=== PATIENT | female | born 1935 | race Caucasian/White ===

== ENCOUNTER 2017-05-18 16:33 | Observation (INO) ==
[2017-05-18] MEDS ORDERED: Aspirin 81 MG TAB.CHEW PO ONE (16:38)
--- NOTE | 2017-05-18 16:42 | Emergency Department Note ---
Disposition Clinical Impression: Chest pain Qualifiers: Chest pain type: unspecified Qualified Code(s): R07.9 - Chest pain, unspecified Disposition: Admitted As Inpatient Condition: Fair Referrals: Poli Esparza MD [Primary Care Provider] - Time of Disposition: 19:00 Chest Pain HPI - General Stated Complaint: Chest pain Time Seen by Provider: 05/18/17 16:38 Source: patient, EMS Mode of arrival: EMS Vital Signs Reviewed: Yes Nursing Notes Reviewed: Yes - History of Present Illness HPI Narrative: 82-year-old comes in with a one-hour history of chest pain. Patient took her blood pressure and said it was high and she noticed her heart rate was about 107. Relative some chest pain and noted that she took 3 nitros with some improvement. She is status post triple bypass surgery in 1997. She has had no recent cardiac workup. Pt complaint: chest pain Onset (ago): Just BENCH EXAMINER Duration: constant Onset: during rest Pain Location: substernal, left chest Severity: mild, moderate Quality: tightness, aching Pain Radiation: none Improves with: nitroglycerin Worsens with: nothing Associated symptoms: Denies: nausea, vomiting Treatments prior to arrival chest pain: nitroglycerin - Related Data Home Medications Medication Instructions Recorded Confirmed ALPRAZolam [Xanax 0.5 MG Tablet] 0.5 mg PO TID PRN 09/25/16 09/25/16 Amitriptyline [Elavil] 10 mg PO HS 09/25/16 09/25/16 Ascorbate Calcium [Vitamin C] 500 mg PO DAILY 09/25/16 09/25/16 Aspirin [Lo-Dose Aspirin EC] 81 mg PO DAILY 09/25/16 09/25/16 Calcium Carbonate [Calcium] 500 mg PO DAILY 09/25/16 09/25/16 Cholecalciferol (D-3) [Vitamin D] 1,000 unit PO DAILY 09/25/16 09/25/16 Estradiol [Estrace] 1 mg PO HS 09/25/16 09/25/16 HYDROcodone/Acet 5/325 mg [[place] 1 tab PO Q6H PRN 09/25/16 09/25/16 5-325 mg] Isosorbide MONOnitrate (24 HR) 60 mg PO DAILY 09/25/16 09/25/16 [Imdur] Losartan Potassium [Cozaar] 100 mg PO BID 09/25/16 09/25/16 Omeprazole [PriLOSEC] 20 mg PO DAILY 09/25/16 09/25/16 Potassium Chloride [K-Tab ER] 20 meq PO DAILY 09/25/16 09/25/16 Simvastatin [Zocor] 20 mg PO QPM 09/25/16 09/25/16 Triamterene/HCTZ 37.5/25mg 1 tab PO DAILY 09/25/16 09/25/16 [Dyazide] amLODIPine [Norvasc] 5 mg PO DAILY 09/25/16 09/25/16 Previous Rx's Medication Instructions Recorded Nitroglycerin 0.4 mg SL Q5MIN PRN #10 tab.subl 09/26/16 Allergies Allergy/AdvReac Type Severity Reaction Status Date / Time azithromycin Allergy See Verified 05/18/17 16:53 Comments ciprofloxacin [From Cipro] Allergy See Verified 05/18/17 16:53 Comments codeine Allergy See Verified 05/18/17 16:53 Comments diltiazem [From Cardizem] Allergy See Verified 05/18/17 16:53 Comments nitrofurantoin Allergy See Verified 05/18/17 16:53 [From Macrodantin] Comments Penicillins Allergy See Verified 05/18/17 16:53 Comments pilocarpine Allergy See Verified 05/18/17 16:53 Comments Sulfa (Sulfonamide Allergy See Verified 05/18/17 16:53 Antibiotics) Comments sulfamethoxazole Allergy See Verified 05/18/17 16:53 [From Bactrim] Comments trimethoprim [From Bactrim] Allergy See Verified 05/18/17 16:53 Comments valsartan [From Diovan] Allergy See Verified 05/18/17 16:53 Comments Verapamil Allergy See Verified 05/18/17 16:53 Comments All systems ED: reviewed and negative except as stated. Constitutional: Denies: fever, chills, weakness, weight change Eyes: Denies: eye pain, eye discharge, vision change ENT ED: Denies: ear pain, throat pain, dental pain, hearing loss, epistaxis, congestion, dysphagia Cardiovascular: Reports: chest pain. Denies: palpitations, dyspnea on exertion , edema, syncope Respiratory: Denies: cough, dyspnea, wheezes, hemoptysis, stridor Gastrointestinal: Denies: abdominal pain, nausea, vomiting, diarrhea, constipation, hematemesis, melena, hematochezia Genitourinary: Denies: dysuria, frequency, hematuria, discharge Musculoskeletal: Denies: back pain, neck pain, arthralgia, myalgia Integumentary: Denies: rash, abrasion, lesions Neurological: Denies: headache, weakness, numbness, paresthesias, confusion, abnormal gait, vertigo Psychiatric: Denies: anxiety, depression, suicidal thoughts, homicidal thoughts , auditory hallucinations, visual hallucinations Endocrine: Denies: fatigue Hematological/Lymphatic: Denies: easy bleeding, easy bruising Allergic/Immunologic: Denies: facial swelling, urticaria Chest Pain PMH - Past Medical History Medical history: Reports: coronary artery disease, hyperlipidemia, hypertension Surgical history: Reports: coronary bypass (CABG), hysterectomy Psychiatric history: Reports: anxiety Prior Cardiac Testing/Procedures: CABG (Three-vessel) SKIP LOADER history: Reports: no SKIP LOADER history - Social History Smoking Status: Unknown if ever smoked Alcohol use: Reports: none Drug use: Reports: none Physical Exam - General Limitations: no limitations General appearance: alert, in no apparent distress - Head Head exam: atraumatic, normocephalic, normal inspection - Eye Eye exam: Present: normal appearance, PERRL, EOMI - ENT ENT exam: normal exam, normal oropharynx, mucous membranes moist - Neck Neck exam: Present: normal inspection, full ROM, trachea midline - Chest Chest inspection: Present: normal inspection, symmetric chest wall rise - Respiratory Respiratory exam: Present: normal lung sounds bilaterally - Cardiovascular Cardiovascular exam: Present: regular rate, normal rhythm, normal heart sounds - Abdominal Exam Abdominal exam: Present: soft, Non-Tender. Absent: tenderness, distention, guarding, rebound, rigidity - Extremities Exam Extremities exam: Present: normal inspection, full ROM. Absent: tenderness, pedal edema - Expanded Lower Extremity Exam Neurovascular/Tendon exam: Absent: motor deficit, sensory deficit, tendon deficit Gait: observed and normal - Back Exam Back exam: Present: normal inspection, full ROM. Absent: tenderness - Neurological Exam Neurological exam: Present: alert, oriented X3 - Psychiatric Psychiatric exam: Present: normal affect, normal mood - Skin Skin exam: Present: warm, dry, intact, normal color Course - Reevaluation(s) Reevaluation #1: 82 female who comes in complaining of chest pain with risk factors. Her initial EKG was negative her initial troponin was negative. Chest x-ray shows no acute findings. Patient will be admitted for rule out. Time: 19:00 - Consultations Consultation #1: Discussed with Dr. Chapman, admit. Time: 19:07 Vital Signs Temperature 98.4 F 05/18/17 16:50 Pulse Rate 76 05/18/17 16:50 Respiratory Rate 14 05/18/17 16:50 Blood Pressure 176/76 05/18/17 16:50 O2 Sat by Pulse Oximetry 100 05/18/17 16:50 Temperature 98.4 F 05/18/17 16:50 Pulse Rate 70 05/18/17 19:30 Respiratory Rate 18 05/18/17 16:57 Blood Pressure 154/62 05/18/17 19:30 O2 Sat by Pulse Oximetry 98 05/18/17 17:30 Oxygen Delivery Oxygen Delivery Room Air Chest Pain - Lab Data Result diagrams: 05/18/17 16:47 05/18/17 16:47 Lab Results 05/18/17 05/18/17 05/18/17 Range/Units 16:47 16:47 16:47 WBC 5.2 (4.3-11.1) K/mcL RBC 4.23 (3.82-4.97) M/mcL Hgb 12.3 (11.5-15.4) g/dL Hct 36.5 (35.3-44.9) % MCV 86.3 (83.0-100.0) fL MCH 29.1 (28.0-33.3) pg MCHC 33.7 (31.6-35.5) g/dL RDW 12.8 (11.5-14.5) % Plt Count 161 (140-400) K/mcL MPV 10.3 (9.4-12.4) fL Immature Gran % 0.2 (0-4) % Seg Neutrophils % 52.4 % Lymphocytes % 36.4 % Monocytes % 8.3 % Eosinophils % 2.1 % Basophils % 0.6 % Neutrophils # 2.7 (1.6-8.9) K/mcL Lymphocytes # 1.9 (0.6-4.6) K/mcL Monocytes # 0.4 (0.0-1.3) K/mcL Eosinophils # 0.1 (0.0-0.6) K/mcL Basophils # 0.0 (0.0-0.2) K/mcL Immature Plt Fraction 3.0 (1.1-6.1) % PT 10.8 (9.4-12.1) Seconds INR 1.0 APTT 29.5 (26.0-36.0) Seconds Sodium 134 L (136-145) mEq/L Potassium 3.4 L (3.5-4.5) mEq/L Chloride 99 (98-109) mEq/L Carbon Dioxide 23 (19-29) mEq/L BUN 17 (7-20) mg/dL Creatinine 0.80 (0.57-1.11) mg/dL Est GFR ( Amer) > 60 (> 60) Est GFR (Non-Af Amer) > 60 (> 60) BUN/Creatinine Ratio 21 (6-26) Glucose 129 H (70-99) mg/dL Calculated Osmolality 281 (280-300) Calcium 9.8 (8.6-10.8) mg/dL Troponin I (0-0.03) ng/mL 05/18/17 Range/Units 16:47 WBC (4.3-11.1) K/mcL RBC (3.82-4.97) M/mcL Hgb (11.5-15.4) g/dL Hct (35.3-44.9) % MCV (83.0-100.0) fL MCH (28.0-33.3) pg MCHC (31.6-35.5) g/dL RDW (11.5-14.5) % Plt Count (140-400) K/mcL MPV (9.4-12.4) fL Immature Gran % (0-4) % Seg Neutrophils % % Lymphocytes % % Monocytes % % Eosinophils % % Basophils % % Neutrophils # (1.6-8.9) K/mcL Lymphocytes # (0.6-4.6) K/mcL Monocytes # (0.0-1.3) K/mcL Eosinophils # (0.0-0.6) K/mcL Basophils # (0.0-0.2) K/mcL Immature Plt Fraction (1.1-6.1) % PT (9.4-12.1) Seconds INR APTT (26.0-36.0) Seconds Sodium (136-145) mEq/L Potassium (3.5-4.5) mEq/L Chloride (98-109) mEq/L Carbon Dioxide (19-29) mEq/L BUN (7-20) mg/dL Creatinine (0.57-1.11) mg/dL Est GFR ( Amer) (> 60) Est GFR (Non-Af Amer) (> 60) BUN/Creatinine Ratio (6-26) Glucose (70-99) mg/dL Calculated Osmolality (280-300) Calcium (8.6-10.8) mg/dL Troponin I 0.01 (0-0.03) ng/mL - EKG Data EKG attestation: Yes I reviewed and interpreted this EKG. EKG shows normal: sinus rhythm Rate: normal Rhythm: NSR Heart block present: 1st Degree When compared to previous EKG there are: no significant changes (09/25/2016) Interpretation: no acute changes Heart Score - Score History: Moderately Suspicious EKG: Non Specific repolarisation Disturbance Age: Greater than 65 Risk Factors: Equal/Greater than 3 risk factor or history of atherosclerotic disease Troponin: Less than normal limit HEART Score Total: 6
[2017-05-18] MEDS ORDERED: *HR* Morphine 2 MG/ML SYRINGE IVP ONE (16:55)
[2017-05-18] MEDS ORDERED: Ondansetron 4 MG/2 ML VIAL IVP ONE (16:55)
[2017-05-18 17:03] LABS: Basophils % 0.6 %; Eosinophils # 0.1 K/mcL (0.0-0.6); Eosinophils % 2.1 %; Hematocrit 36.5 % (35.3-44.9); Hemoglobin 12.3 g/dL (11.5-15.4); Immature Granulocytes % 0.2 % (0-4); Lymphocytes # 1.9 K/mcL (0.6-4.6); Lymphocytes % 36.4 %; Mean Corpuscular HGB Conc 33.7 g/dL (31.6-35.5); Mean Corpuscular Hemoglobin 29.1 pg (28.0-33.3); Mean Corpuscular Volume 86.3 fL (83.0-100.0); Mean Platelet Volume 10.3 fL (9.4-12.4); Monocytes # 0.4 K/mcL (0.0-1.3); Monocytes % 8.3 %; Neutrophils # 2.7 K/mcL (1.6-8.9); Platelet Count 161 K/mcL (140-400); Red Blood Count 4.23 M/mcL (3.82-4.97); Red Cell Distribution Width 12.8 % (11.5-14.5); Segmented Neutrophils % 52.4 %
[2017-05-18 17:11] LABS: Prothrombin Time 10.8 Seconds (9.4-12.1)
[2017-05-18 17:13] LABS: Activated Partial Thrombo Time 29.5 Seconds (26.0-36.0)
[2017-05-18 17:15] LABS: BUN/Creatinine Ratio 21 (6-26); Blood Urea Nitrogen 17 mg/dL (7-20); Calcium 9.8 mg/dL (8.6-10.8); Carbon Dioxide 23 mEq/L (19-29); Chloride 99 mEq/L (98-109); Glucose 129 mg/dL (70-99); Osmolality,Calculated 281 (280-300); Potassium 3.4 mEq/L (3.5-4.5); Sodium 134 mEq/L (136-145); eGFR For African Americans > 60 (> 60); eGFR For Non-African Americans > 60 (> 60)
--- NOTE | 2017-05-18 20:29 | Internal Med History&Physical ---
Date of Encounter: 05/18/17 Time of Encounter: 20:28 Assessment and Plan (1) Chest pain Current visit: Yes Status: Acute Atypical chest pain, currently chest pain free. first trop is negative. Pharmacologic nuclear stress 09/26 was negative. Most recent TTE shows preserved LV function. was seen by cardiology last admission and the chest pain was deemed musculoskeletal. will trend tropx3, monitro for chest pain. monitor tele monitoring. Qualifiers: Chest pain type: unspecified Qualified Code(s): R07.9 - Chest pain, unspecified (2) CAD (coronary artery disease) Current visit: No Status: Chronic Hx of 3v CABG. Continue asa, statin. Intolerant to betablockers/CCB--bradycardia. Qualifiers: Coronary Disease-Associated Artery/Lesion type: unspecified vessel or lesion type [place] vs. transplanted heart: [place] heart Associated angina: without angina Qualified Code(s): I25.10 - Atherosclerotic heart disease of [place] coronary artery without angina pectoris (3) Hypertension, essential Current visit: No Status: Resolved continue home meds. (4) History of coronary artery bypass graft x 1 Current visit: Yes Status: Acute Internal Medicine - H&P: HPI Chief complaint: chest pain Admitted From: Home Plans for Post Hospital Care: Home History of present illness: Ms. Arboleda is a 82 year old female with PMH of CAD status post CABG in 1996, hypertension presented to ED with complaints of chest pain starting this morning. She reported that she felt pressure-like heavy sensation in the midsternal chest , nonradiating, with associated with mild shortness of breath. Denies any palpitations, nausea or vomiting. Reports that she took 3 tablets of nitroglycerin at home which slightly to go in the pain, came to emergency and was given morphine which made her chest pain- free at this time. [facility] reports having a stress test last yr which was negative , had CABG in , no h/o stents placement denies any leg swelling or exertional dyspnea. Past Med Surg Social Fam HX - Past Medical History Medical history: coronary artery disease, hyperlipidemia, hypertension Psychiatric history: anxiety - Past Surgical History Surgical History: coronary bypass (CABG), hysterectomy - Social History Smoking Status: Unknown if ever smoked Smokeless Tobacco Status: No Alcohol use: none Drug use: none - Family History Father Hx Family Cardiac Disorders: Yes Internal Medicine - H&P: Meds ALPRAZolam [Xanax 0.5 MG Tablet] 0.5 mg PO TID PRN 09/25/16 [History] Amitriptyline [Elavil] 10 mg PO HS 09/25/16 [History] Ascorbate Calcium [Vitamin C] 500 mg PO DAILY 09/25/16 [History] Aspirin [Lo-Dose Aspirin EC] 81 mg PO DAILY 09/25/16 [History] Calcium Carbonate [Calcium] 500 mg PO DAILY 09/25/16 [History] Cholecalciferol (D-3) [Vitamin D] 1,000 unit PO DAILY 09/25/16 [History] Estradiol [Estrace] 1 mg PO HS 09/25/16 [History] HYDROcodone/Acet 5/325 mg [[place] 5-325 mg] 1 tab PO Q6H PRN 09/25/16 [History] Isosorbide MONOnitrate (24 HR) [Imdur] 60 mg PO DAILY 09/25/16 [History] Losartan Potassium [Cozaar] 100 mg PO BID 09/25/16 [History] Omeprazole [PriLOSEC] 20 mg PO DAILY 09/25/16 [History] Potassium Chloride [K-Tab ER] 20 meq PO DAILY 09/25/16 [History] Simvastatin [Zocor] 20 mg PO QPM 09/25/16 [History] Triamterene/HCTZ 37.5/25mg [Dyazide] 1 tab PO DAILY 09/25/16 [History] amLODIPine [Norvasc] 5 mg PO DAILY 09/25/16 [History] Nitroglycerin 0.4 mg SL Q5MIN PRN #10 tab.subl 09/26/16 [Rx] Allergies azithromycin Allergy (Verified 05/18/17 16:53) See Comments ciprofloxacin [From Cipro] Allergy (Verified 05/18/17 16:53) See Comments codeine Allergy (Verified 05/18/17 16:53) See Comments diltiazem [From Cardizem] Allergy (Verified 05/18/17 16:53) See Comments nitrofurantoin [From Macrodantin] Allergy (Verified 05/18/17 16:53) See Comments Penicillins Allergy (Verified 05/18/17 16:53) See Comments pilocarpine Allergy (Verified 05/18/17 16:53) See Comments Sulfa (Sulfonamide Antibiotics) Allergy (Verified 05/18/17 16:53) See Comments sulfamethoxazole [From Bactrim] Allergy (Verified 05/18/17 16:53) See Comments trimethoprim [From Bactrim] Allergy (Verified 05/18/17 16:53) See Comments valsartan [From Diovan] Allergy (Verified 05/18/17 16:53) See Comments Verapamil Allergy (Verified 05/18/17 16:53) See Comments All Systems PM: A 10-system review of systems was performed and is negative for pertinent findings except as documented above in the HPI. - Constitutional Constitutional: as per HPI - EENT Eyes: as per HPI Ears: as per HPI Nose, mouth and throat: as per HPI - Breasts Breasts: as per HPI - Cardiovascular Cardiovascular ROS IM: as per HPI - Respiratory Respiratory: as per HPI - Gastrointestinal Gastrointestinal: as per HPI - Constitutional Vitals: Temp Pulse Resp BP Pulse Ox 98.4 F 70 18 154/62 98 05/18/17 16:50 05/18/17 19:30 05/18/17 16:57 05/18/17 19:30 05/18/17 17:30 General appearance: Present: A&O X 3, no acute distress Exam: neck- supple chest- b/l clear , no added sounds CVS-s1 and s2, nomr//g abd-soft, non tender, bs are present ext- no edema neuro- no focal defecits, alert and awake Internal Med - H&P Results - Labs CBC & Chem 7: 05/18/17 16:47 05/18/17 16:47 Labs: Short CBC 05/18/17 Range/Units 16:47 WBC 5.2 (4.3-11.1) K/mcL Hgb 12.3 (11.5-15.4) g/dL Hct 36.5 (35.3-44.9) % Plt Count 161 (140-400) K/mcL Neutrophils # 2.7 (1.6-8.9) K/mcL BMP 05/18/17 16:47 Sodium 134 L Potassium 3.4 L Chloride 99 Carbon Dioxide 23 BUN 17 Creatinine 0.80 Glucose 129 H Calcium 9.8 Cardiac Enzymes 05/18/17 Range/Units 16:47 Troponin I 0.01 (0-0.03) ng/mL - Impressions ITS Impressions Chest X-Ray 05/18/17 16:38 IMPRESSION: No acute process. D/ / Bobo Garcia MD / Bobo Garcia MD Interpreting Provider: Bobo Garcia MD
[2017-05-18] MEDS ORDERED: Ondansetron 4 MG/2 ML VIAL IVP PRN (22:33)
[2017-05-18] MEDS ORDERED: Naloxone 0.4 MG/ML INJ IVP PRN (22:33)
[2017-05-18] MEDS ORDERED: Nitroglycerin 0.4 MG TAB.SUBL SL PRN (22:38)
[2017-05-18] MEDS ORDERED: amLODIPine 5 MG TABLET PO ONE (23:33)
[2017-05-18] MEDS: ALPRAZolam 0.5 MG TABLET PO PRN (23:38)
[2017-05-19] MEDS: *HR* Heparin 5,000 UNIT/ML VIAL SQ SCH ×2 (05:22→18:14)
[2017-05-19 05:23] LABS: Basophils % 0.4 %; Eosinophils # 0.1 K/mcL (0.0-0.6); Eosinophils % 1.3 %; Hematocrit 32.3 % (35.3-44.9); Immature Granulocytes % 0.2 % (0-4); Lymphocytes # 2.1 K/mcL (0.6-4.6); Lymphocytes % 39.5 %; Mean Corpuscular HGB Conc 34.1 g/dL (31.6-35.5); Mean Corpuscular Hemoglobin 29.6 pg (28.0-33.3); Mean Corpuscular Volume 86.8 fL (83.0-100.0); Mean Platelet Volume 10.8 fL (9.4-12.4); Monocytes # 0.6 K/mcL (0.0-1.3); Monocytes % 10.6 %; Neutrophils # 2.5 K/mcL (1.6-8.9); Platelet Count 151 K/mcL (140-400); Red Blood Count 3.72 M/mcL (3.82-4.97); Red Cell Distribution Width 12.9 % (11.5-14.5)
[2017-05-19 05:50] LABS: Calcium 9.7 mg/dL (8.6-10.8); Carbon Dioxide 24 mEq/L (19-29); Chloride 104 mEq/L (98-109); Chol/HDL Ratio 2.7 (0-4.9); Cholesterol 147 mg/dL (< 200); Glucose 95 mg/dL (70-99); HDL Cholesterol 55 mg/dL (40-59); LDL Cholesterol,Calculated 68 mg/dL (0-99); Magnesium 1.7 mg/dL (1.6-2.6); Phosphorous 3.8 mg/dL (2.3-4.7); Sodium 137 mEq/L (136-145); Triglycerides 121 mg/dL (< 150); eGFR For African Americans > 60 (> 60); eGFR For Non-African Americans > 60 (> 60)
[2017-05-19 06:03] LABS: BUN/Creatinine Ratio 18 (6-26); Blood Urea Nitrogen 14 mg/dL (7-20); Osmolality,Calculated 284 (280-300)
[2017-05-19] MEDS: amLODIPine 5 MG TABLET PO SCH (09:34)
[2017-05-19] MEDS: Aspirin Enteric Coated 81 MG Tablet PO SCH (09:34)
[2017-05-19] MEDS: Isosorbide MONOnitrate (24 HR) 60 MG TAB.ER.24H PO SCH (09:34)
--- NOTE | 2017-05-19 11:20 | Internal Med Progress Note ---
Date of Encounter: 05/19/17 Time of Encounter: 10:40 - Assessment and plan (1) Chest pain Current Visit: No Status: Resolved Assessment and plan: Pt denies chest pain at this time. She states that she had chest heaviness yesterday and leg weakness, onset about 1 week ago, but worse yesterday. Pt reports near syncopal episode when standing to go to kitchen. Chest is tender to palpation and pain is reproduceable with deep palpation. She denies cough or fever/chills. She states that she has been lifting heavy boxes of cat litter in the last week. Stress test in 09/26 was negative for ischemia or infarct. Echo is ordered. Troponins have been negative. Chest xray negative for acute process. EKG showed sinus rhythm with first-degree AV block and anterior septal VT. Ventricular rate 80, TN interval 232, QRS 90, QTc 413. Continue telemetry Echo Monitor labs. Chest X-Ray 05/18/17 16:38 IMPRESSION: No acute process. D/ / Bobo Garcia MD / Bobo Garcia MD Interpreting Provider: Bobo Garcia MD Qualifiers: Chest pain type: unspecified Qualified Code(s): R07.9 - Chest pain, unspecified (2) Weakness Current Visit: Yes Status: Acute Assessment and plan: Patient reports increased weakness and fatigue over the last week. She states that yesterday she could not stand and could not walk. She reported all of her fatigue and leg weakness. She said she had to be helped from the car wheelchair to the emergency department yesterday. Chest xray is negative. I have ordered a urine with reflex micro and culture, echo, and PT/OT consults. PT/OT consults Echo Labs and urine pending Fall precautions Up with assistance (3) CAD (coronary artery disease) Current Visit: No Status: Chronic Assessment and plan: CABG 3. Patient denies chest pain currently. Continue aspirin, statin. Patient is not on a beta zacarias or a calcium channel zacarias due to history of bradycardia. Qualifiers: Coronary Disease-Associated Artery/Lesion type: unspecified vessel or lesion type [place] vs. transplanted heart: [place] heart Associated angina: without angina Qualified Code(s): I25.10 - Atherosclerotic heart disease of [place] coronary artery without angina pectoris (4) Hypertension, essential Current Visit: Yes Status: Suspected Assessment and plan: Chronic. Continue home medications. (5) History of coronary artery bypass graft x 1 Current Visit: Yes Status: Chronic (6) DVT prophylaxis Current Visit: Yes Status: Acute Assessment and plan: Heparin subcutaneous daily. - Time Spent With Patient less than 15 minutes - Subjective Interval history: Patient seen and examined about 10:40 AM. Patient reports feeling that her chest was "sore" and fatigue for 1 week. She states that yesterday she was sitting in her living room and decided to make herself dinner, got up and went to the kitchen, when she stood up she said she was dizzy and "I started to black out". She states that she went to the living room and sat down. Blood pressure was 190/76 and pulse is 107. She said that she had chest heaviness that she was not able to stand on her feet and was not able to walk. She reported extreme leg weakness. She denies shortness of breath, diaphoresis, nausea and vomiting. She did say that she was cold and shaky. She also had a headache, most likely due to the nitroglycerin. Patient reported she has chronic back pain for which he takes [place]. Her chest pain is reproducible with palpation. She said she has been lifting heavy boxes of cat litter recently. He sees cardiology. She has appointment on May 06 with Jessica Handley. Patient states that she lives home alone and she does not have any home health services. She states that she does not feel as if she is well enough to go home right now. We will have a PT and OT consult, the most likely add an echo. I also ordered a urine with reflex micro and culture. - Constitutional Vitals: Temp Pulse Resp BP Pulse Ox 98.1 F 67 15 123/65 98 05/19/17 07:23 05/19/17 07:23 05/19/17 07:23 05/19/17 07:23 05/19/17 07:23 General appearance: Present: cooperative, A&O X 3, pleasant, no acute distress, answers questions appropriately - Head Head exam: Present: normal inspection - Eye Eye exam: Present: normal appearance, conjuntiva pink - ENT ENT exam: Present: mucous membranes moist, normal exam - Neck Neck exam general surgery: Present: normal inspection. Absent: lymphadenopathy , tenderness - Respiratory Respiratory exam: Present: chest wall tenderness, CTAB. Absent: decreased breath sounds, rales, respiratory distress, rhonchi, stridor, wheezes - Cardiovascular Cardiovascular exam: Present: RRR, +S1, +S2. Absent: clicks, diastolic murmur, gallop, systolic murmur - GI/Abdominal GI/Abdominal exam: Present: distended, normal bowel sounds, soft. Absent: hepatomegaly, tenderness - Extremities Exam Extremities exam: Present: normal capillary refill, warm, radial pulses palpable and symetrical. Absent: mottling, pedal edema, tenderness - Neurological Exam Neurological exam: Present: alert, oriented X3, no focal deficits. Absent: facial droop, speech deficit - Skin Skin exam: Present: dry, normal color, warm. Absent: rash Internal Medicine: Result - Labs CBC & Chem 7: 05/19/17 04:44 05/19/17 04:44 Labs: Short CBC 05/19/17 Range/Units 04:44 WBC 5.2 (4.3-11.1) K/mcL Hgb 11.0 L (11.5-15.4) g/dL Hct 32.3 L (35.3-44.9) % Plt Count 151 (140-400) K/mcL Neutrophils # 2.5 (1.6-8.9) K/mcL BMP 05/19/17 04:44 Sodium 137 Potassium 4.0 Chloride 104 Carbon Dioxide 24 BUN 14 Creatinine 0.80 Glucose 95 Calcium 9.7 Cardiac Enzymes 05/18/17 05/19/17 Range/Units 23:29 04:44 Troponin I 0.01 0.01 (0-0.03) ng/mL - ABG Interpretation ABG results: PT/INR, D-dimer PT 10.8 Seconds (9.4-12.1) 05/18/17 16:47 Consult Discharge Plan - Plan Referrals: Poli Esparza MD [Primary Care Provider] -
[2017-05-19] MEDS: ALPRAZolam 0.5 MG TABLET PO PRN (18:14)
[2017-05-19 19:22] LABS: Bilirubin,Urine Negative (Negative); Blood,Urine Negative (Negative); Clarity,Urine Clear (Clear); Color,Urine Yellow (Yellow); Glucose,Urine (UA) Normal (Normal); Ketones,Urine Negative (Negative); Leukocyte Esterase,Urine Negative (Negative); Nitrite,Urine Negative (Negative); Protein,Urine Negative (Neg-Trace); Urobilinogen,Urine Normal (Normal)
[2017-05-19] MEDS: *HR* HYDROcodone/Acet 5/325 mg TABLET PO PRN (20:20)
[2017-05-19] MEDS ORDERED: amLODIPine 5 MG TABLET PO ONE (23:18)
[2017-05-20] MEDS: *HR* Heparin 5,000 UNIT/ML VIAL SQ SCH ×2 (05:56→17:05)
[2017-05-20] MEDS: amLODIPine 5 MG TABLET PO SCH (08:51)
[2017-05-20] MEDS: Isosorbide MONOnitrate (24 HR) 60 MG TAB.ER.24H PO SCH (08:52)
[2017-05-20] MEDS: Aspirin Enteric Coated 81 MG Tablet PO SCH (08:52)
--- NOTE | 2017-05-20 12:06 | Electrocardiograph Report ---
[address] [place] [address] Test Date: 2017-05-18 Pat Name: Claudia Arboleda Department: 104 Room: 3B45 Gender: F [employer]ight [employer]ker: ANTOLIN : 1935 Requested By: Bruno Pool Order Number: [id number] Reading MD: Yash Badillo MD Measurements Intervals [place] Rate: 80 P: 33 GA: 232 QRS: 62 QRSD: 90 T: 23 QT: 377 QTc: 413 Interpretive Statements SINUS RHYTHM WITH FIRST DEGREE AV BLOCK ANTEROSEPTAL MYOCARDIAL INFARCTION, PROBABLY OLD BASELINE ARTIFACT Electronically Signed On 05-20-2017 12:04:59 EDT by Yash Badillo MD
[2017-05-20 13:38] LABS: Basophils % 0.4 %; Eosinophils # 0.1 K/mcL (0.0-0.6); Eosinophils % 0.9 %; Hematocrit 33.9 % (35.3-44.9); Hemoglobin 11.3 g/dL (11.5-15.4); Immature Granulocytes % 0.2 % (0-4); Lymphocytes # 1.2 K/mcL (0.6-4.6); Lymphocytes % 23.3 %; Mean Corpuscular HGB Conc 33.3 g/dL (31.6-35.5); Mean Corpuscular Hemoglobin 29.4 pg (28.0-33.3); Mean Corpuscular Volume 88.1 fL (83.0-100.0); Mean Platelet Volume 10.4 fL (9.4-12.4); Monocytes # 0.4 K/mcL (0.0-1.3); Monocytes % 8.3 %; Neutrophils # 3.6 K/mcL (1.6-8.9); Platelet Count 158 K/mcL (140-400); Red Blood Count 3.85 M/mcL (3.82-4.97); Red Cell Distribution Width 13.1 % (11.5-14.5); Segmented Neutrophils % 66.9 %
[2017-05-20 13:50] LABS: Calcium 9.6 mg/dL (8.6-10.8); Potassium 3.7 mEq/L (3.5-4.5)
--- NOTE | 2017-05-20 15:33 | Internal Med Progress Note ---
Date of Encounter: 05/20/17 Time of Encounter: 13:30 - Assessment and plan (1) Chest pain Current Visit: No Status: Resolved Assessment and plan: Pt denies chest pain at this time. She is not in any distress. Chest is tender to palpation and pain is reproduceable with deep palpation. Her lungs are clear anteriorly and posteriorly. She denies cough or fever/chills. She states that she has been lifting heavy boxes of cat litter in the last week. Stress test in 09/26 was negative for ischemia or infarct. Troponins have been negative. Chest xray negative for acute process. EKG showed sinus rhythm with first-degree AV block and anterior septal TN. Ventricular rate 80, AR interval 232, QRS 90, QTc 413. Echocardiogram shows LVEF 6065% with normal LV chamber size and function. Asymmetric hypertrophy of the basal septum with mild LV diastolic dysfunction, atypical septal wall motion consistent with postoperative status, normal RV structure and function with no evidence of pulmonary hypertension. Continue copy coordinator labs. Chest X-Ray 05/18/17 16:38 IMPRESSION: No acute process. D/ / Bobo Garcia MD / Bobo Garcia MD Interpreting Provider: Bobo Garcia MD Qualifiers: Chest pain type: unspecified Qualified Code(s): R07.9 - Chest pain, unspecified (2) Weakness Current Visit: Yes Status: Acute Assessment and plan: Patient reports increased weakness and fatigue over the last week. She states that at time of admission she could not stand and could not walk. She reported all of her fatigue and leg weakness. She said she had to be helped from the car wheelchair to the emergency department. Chest xray is negative. Urine is negative, echo shows mild diastolic dysfunction with LVEF of 60-65%, and PT/OT consults are still pending. PT/OT consults Continue to monitor labs Fall precautions Up with assistance (3) CAD (coronary artery disease) Current Visit: No Status: Chronic Assessment and plan: CABG 3. Patient denies chest pain currently. Continue aspirin, statin. Patient is not on a beta zacarias or a calcium channel zacarias due to history of bradycardia. Qualifiers: Coronary Disease-Associated Artery/Lesion type: unspecified vessel or lesion type [place] vs. transplanted heart: [place] heart Associated angina: without angina Qualified Code(s): I25.10 - Atherosclerotic heart disease of [place] coronary artery without angina pectoris (4) Hypertension, essential Current Visit: Yes Status: Suspected Assessment and plan: Chronic. Continue home medications. (5) History of coronary artery bypass graft x 1 Current Visit: Yes Status: Chronic Assessment and plan: Per history. (6) DVT prophylaxis Current Visit: Yes Status: Acute Assessment and plan: Heparin subcutaneous daily. - Time Spent With Patient less than 15 minutes - Subjective Interval history: Patient was resting quietly in bed. She was seen and assessed at about 1330. Patient is alert and oriented, pleasant, speech is clear. She denies any chest pain at all. She says that she still feels very weak. She had difficulty even sitting up in the bed with assistance. She wants to go home, I did speak with her about staying for evaluation by physical therapy and occupational therapy tomorrow. Patient was agreeable to this. Physical exam was unremarkable other than diffuse weakness. - Constitutional Vitals: Temp Pulse Resp BP Pulse Ox 97.5 F L 72 14 146/66 98 05/20/17 10:49 05/20/17 10:49 05/20/17 10:49 05/20/17 10:49 05/20/17 10:49 General appearance: Present: cooperative, A&O X 3, pleasant, no acute distress, answers questions appropriately - Head Head exam: Present: normal inspection - Eye Eye exam: Present: normal appearance, conjuntiva pink - ENT ENT exam: Present: mucous membranes moist, normal exam - Neck Neck exam general surgery: Absent: lymphadenopathy, tenderness - Respiratory Respiratory exam: Present: chest wall tenderness, CTAB. Absent: rales, respiratory distress, rhonchi, stridor, wheezes - Cardiovascular Cardiovascular exam: Present: RRR, +S1, +S2. Absent: clicks, diastolic murmur, gallop, systolic murmur - GI/Abdominal GI/Abdominal exam: Present: normal bowel sounds, soft. Absent: distended, hepatomegaly, tenderness - Extremities Exam Extremities exam: Present: normal capillary refill, warm, radial pulses palpable and symetrical. Absent: mottling, pedal edema, tenderness - Neurological Exam Neurological exam: Present: alert, oriented X3, strengths equal and symetr throughout. Absent: facial droop, speech deficit - Skin Skin exam: Present: dry, normal color, warm. Absent: rash Internal Medicine: Result - Labs CBC & Chem 7: 05/20/17 13:29 05/20/17 13:29 Labs: Short CBC 05/20/17 Range/Units 13:29 WBC 5.3 (4.3-11.1) K/mcL Hgb 11.3 L (11.5-15.4) g/dL Hct 33.9 L (35.3-44.9) % Plt Count 158 (140-400) K/mcL Neutrophils # 3.6 (1.6-8.9) K/mcL BMP 05/20/17 13:29 Sodium 133 L Potassium 3.7 Chloride 99 Carbon Dioxide 23 BUN 20 Creatinine 1.19 H Glucose 141 H Calcium 9.6 Urine 05/19/17 Range/Units 19:14 Urine Color Yellow (Yellow) Urine Clarity Clear (Clear) Urine pH 7.0 (5.0-8.0) pH Units Ur Specific [place] 1.010 (1.010-1.025) Urine Protein Negative (Neg-Trace) mg/dL Urine Glucose (UA) Normal (Normal) mg/dL - ABG Interpretation ABG results: PT/INR, D-dimer PT 10.8 Seconds (9.4-12.1) 05/18/17 16:47 Consult Discharge Plan - Plan Referrals: Poli Esparza MD [Primary Care Provider] -
[2017-05-20] MEDS: *HR* HYDROcodone/Acet 5/325 mg TABLET PO PRN (17:06)
[2017-05-20] MEDS: ALPRAZolam 0.5 MG TABLET PO PRN (21:20)
[2017-05-21] MEDS: *HR* Heparin 5,000 UNIT/ML VIAL SQ SCH (06:10)
[2017-05-21 07:32] LABS: Basophils % 0.3 %; Eosinophils # 0.1 K/mcL (0.0-0.6); Hematocrit 32.7 % (35.3-44.9); Hemoglobin 10.9 g/dL (11.5-15.4); Immature Granulocytes % 0.3 % (0-4); Lymphocytes # 1.6 K/mcL (0.6-4.6); Lymphocytes % 22.5 %; Mean Corpuscular HGB Conc 33.3 g/dL (31.6-35.5); Mean Corpuscular Hemoglobin 29.9 pg (28.0-33.3); Mean Corpuscular Volume 89.8 fL (83.0-100.0); Mean Platelet Volume 10.7 fL (9.4-12.4); Monocytes # 0.6 K/mcL (0.0-1.3); Monocytes % 8.9 %; Neutrophils # 4.8 K/mcL (1.6-8.9); Platelet Count 140 K/mcL (140-400); Red Blood Count 3.64 M/mcL (3.82-4.97); Red Cell Distribution Width 13.2 % (11.5-14.5)
[2017-05-21 07:54] LABS: Calcium 9.3 mg/dL (8.6-10.8)
[2017-05-21] MEDS: Isosorbide MONOnitrate (24 HR) 60 MG TAB.ER.24H PO SCH (08:57)
[2017-05-21] MEDS: amLODIPine 5 MG TABLET PO SCH (08:57)
[2017-05-21] MEDS: Aspirin Enteric Coated 81 MG Tablet PO SCH (08:57)
[2017-05-21 14:53] VITALS: BP 153/73
--- NOTE | 2017-05-21 15:46 | Discharge Summary ---
Date of Encounter: 05/21/17 Time of Encounter: 15:44 - Discharge Medications Home Medications: ALPRAZolam [Xanax 0.5 MG Tablet] 0.5 mg PO TID PRN 09/25/16 [History] Amitriptyline [Elavil] 10 mg PO HS 09/25/16 [History] Ascorbate Calcium [Vitamin C] 500 mg PO DAILY 09/25/16 [History] Aspirin [Lo-Dose Aspirin EC] 81 mg PO DAILY 09/25/16 [History] Calcium Carbonate [Calcium] 500 mg PO DAILY 09/25/16 [History] Cholecalciferol (D-3) [Vitamin D] 1,000 unit PO DAILY 09/25/16 [History] Estradiol [Estrace] 1 mg PO HS 09/25/16 [History] HYDROcodone/Acet 5/325 mg [[place] 5-325 mg] 1 tab PO Q6H PRN 09/25/16 [History] Isosorbide MONOnitrate (24 HR) [Imdur] 60 mg PO DAILY 09/25/16 [History] Losartan Potassium [Cozaar] 100 mg PO BID 09/25/16 [History] Omeprazole [PriLOSEC] 20 mg PO DAILY 09/25/16 [History] Potassium Chloride [K-Tab ER] 20 meq PO DAILY 09/25/16 [History] Simvastatin [Zocor] 20 mg PO QPM 09/25/16 [History] Triamterene/HCTZ 37.5/25mg [Dyazide] 1 tab PO DAILY 09/25/16 [History] amLODIPine [Norvasc] 5 mg PO BID 09/25/16 [History] Nitroglycerin 0.4 mg SL Q5MIN PRN #10 tab.subl 09/26/16 [Rx] Allergies/Adverse Reactions: Allergies azithromycin Allergy (Verified 05/19/17 10:35) UNKNOWN ciprofloxacin [From Cipro] Allergy (Verified 05/19/17 10:35) UNKNOWN codeine Allergy (Verified 05/19/17 10:35) UNKNOWN diltiazem [From Cardizem] Allergy (Verified 05/19/17 10:35) UNKNOWN nitrofurantoin [From Macrodantin] Allergy (Verified 05/19/17 10:35) UNKNOWN Penicillins Allergy (Verified 05/19/17 10:35) UNKNOWN pilocarpine Allergy (Verified 05/19/17 10:35) UNKNOWN Sulfa (Sulfonamide Antibiotics) Allergy (Verified 05/19/17 10:35) UNKNOWN sulfamethoxazole [From Bactrim] Allergy (Verified 05/19/17 10:35) UNKNOWN trimethoprim [From Bactrim] Allergy (Verified 05/19/17 10:35) UNKNOWN valsartan [From Diovan] Allergy (Verified 05/19/17 10:35) UNKNOWN Verapamil Allergy (Verified 05/19/17 10:35) UNKNOWN Procedures/tests Complete & Pending: Procedures Performed prior 72 hours Category Date Time Status EV echocardiogram Routine Y 05/19/17 11:52 Completed Date of admission: 05/18/17 20:58 Primary care physician: Poli Esparza MD Consults: 05/20/17 13:58 Consult to Occupational Therapy [CONS] Routine Comment: Evaluate, develop and implement POC Reason for Consult: evaluation Consult to Physical Therapy [CONS] Routine Comment: Evaluate, develop and implement POC Reason for Consult: evaluation 05/21/17 15:02 Consult to [place] [CONS] Routine Reason for SW Consult: Home health services - Patient Status Disposition: Home Health Service Condition: Good Functional capacity at discharge: uses cane/walker Overall status at discharge: patient is not back to baseline - Discharge Instructions Instructions: Chest Pain (DC) Follow Up With: Poli Esparza MD [Primary Care Provider] - 06/10/17 10:30 am Forms: ED Satisfaction Letter - Diet and Activity Activity: resume usual activities as tolerated Diet: low fat, low cholesterol, low salt diet Interval History: Patient denies any chest pain, or shortness of breath. She is eager to go home. Hospital course: Ms. Arboleda is a 82 year old female with a past medical history of hypertension and coronary artery disease status post CABG in 1996 who presented with a chief complaint of chest pain. Troponins negative 3. Chest x-ray negative for any acute process. EKG showed no acute ischemic changes. Echocardiogram shows LVEF 60%, mild LV diastolic dysfunction. No telemetry events during this hospitalization. She had a stress test in September 2016 that was negative for any ischemia or infarct. Her symptoms resolved on admission and she remained hemodynamically stable and asymptomatic. PLAN: PT OT at home. Follow-up with primary care physician for PFTs. Patient has history of second hand smoking during childhood. - Time Spent with Patient Total time spent providing and/or coordinating discharge services: - Constitutional Vitals: Temp Pulse Resp BP Pulse Ox 98.2 F 84 16 153/73 99 05/21/17 14:52 05/21/17 14:52 05/21/17 14:52 05/21/17 14:52 05/21/17 14:52 General appearance: Present: cooperative, A&O X 3, pleasant, no acute distress, answers questions appropriately - Neck Neck exam general surgery: Present: lymphadenopathy. Absent: supple, trachea midline - Respiratory Respiratory exam: Present: CTAB - Cardiovascular Cardiovascular exam: Present: RRR - GI/Abdominal GI/Abdominal exam: Present: normal bowel sounds, soft. Absent: distended, tenderness - Extremities Exam Extremities exam: Absent: pedal edema - Back Exam Back exam: Absent: CVA tenderness (L), CVA tenderness (R) - Neurological Exam Neurological exam: Present: alert, oriented X3, no focal deficits, strengths equal and symetr throughout. Absent: facial droop, speech deficit - Skin Skin exam: Absent: rash
--- NOTE | 2017-05-21 16:03 | Physician Discharge Referral ---
ExtendedCare Referral Info Provider in Charge after Transfer: PCP Institutional Level of Care: Skilled - Transfer Medications Home Medications: ALPRAZolam [Xanax 0.5 MG Tablet] 0.5 mg PO TID PRN 09/25/16 [History] Amitriptyline [Elavil] 10 mg PO HS 09/25/16 [History] Ascorbate Calcium [Vitamin C] 500 mg PO DAILY 09/25/16 [History] Aspirin [Lo-Dose Aspirin EC] 81 mg PO DAILY 09/25/16 [History] Calcium Carbonate [Calcium] 500 mg PO DAILY 09/25/16 [History] Cholecalciferol (D-3) [Vitamin D] 1,000 unit PO DAILY 09/25/16 [History] Estradiol [Estrace] 1 mg PO HS 09/25/16 [History] HYDROcodone/Acet 5/325 mg [[place] 5-325 mg] 1 tab PO Q6H PRN 09/25/16 [History] Isosorbide MONOnitrate (24 HR) [Imdur] 60 mg PO DAILY 09/25/16 [History] Losartan Potassium [Cozaar] 100 mg PO BID 09/25/16 [History] Omeprazole [PriLOSEC] 20 mg PO DAILY 09/25/16 [History] Potassium Chloride [K-Tab ER] 20 meq PO DAILY 09/25/16 [History] Simvastatin [Zocor] 20 mg PO QPM 09/25/16 [History] Triamterene/HCTZ 37.5/25mg [Dyazide] 1 tab PO DAILY 09/25/16 [History] amLODIPine [Norvasc] 5 mg PO BID 09/25/16 [History] Nitroglycerin 0.4 mg SL Q5MIN PRN #10 tab.subl 09/26/16 [Rx] Allergies/Adverse Reactions: Allergies azithromycin Allergy (Verified 05/19/17 10:35) UNKNOWN ciprofloxacin [From Cipro] Allergy (Verified 05/19/17 10:35) UNKNOWN codeine Allergy (Verified 05/19/17 10:35) UNKNOWN diltiazem [From Cardizem] Allergy (Verified 05/19/17 10:35) UNKNOWN nitrofurantoin [From Macrodantin] Allergy (Verified 05/19/17 10:35) UNKNOWN Penicillins Allergy (Verified 05/19/17 10:35) UNKNOWN pilocarpine Allergy (Verified 05/19/17 10:35) UNKNOWN Sulfa (Sulfonamide Antibiotics) Allergy (Verified 05/19/17 10:35) UNKNOWN sulfamethoxazole [From Bactrim] Allergy (Verified 05/19/17 10:35) UNKNOWN trimethoprim [From Bactrim] Allergy (Verified 05/19/17 10:35) UNKNOWN valsartan [From Diovan] Allergy (Verified 05/19/17 10:35) UNKNOWN Verapamil Allergy (Verified 05/19/17 10:35) UNKNOWN - Respiratory Orders Smoking Cessation: Smoking cessation has been advised. For more information, call the [place] Tobacco Quit Line at 8-204-WAXR-NOW. CERTIFICATION: I certify that the transfer of the above named patient to an Extended Care Facility is necessary for the continuing treatment of the diagnosis listed. The above information is true and accurate reflection of patient's current condition. Confidential - Redisclosure prohibited without a patient's written consent.
--- NOTE | 2017-05-21 16:17 | Physician Discharge Referral ---
Home Health/Hosp Referral Info Transfer to: Home Health Attending Provider: parisa Provider in Charge Post Discharge: PCP - Diagnosis (1) Chest pain Priority: Primary Status: Acute (2) CAD (coronary artery disease) Priority: Secondary Status: Chronic - Respiratory Orders Smoking Cessation: Smoking cessation has been advised. For more information, call the [place] Tobacco Quit Line at 2-795-MJNO-NOW. - Diet/Nutrition Diet/Nutrition Orders: No Added Salt (PABLO), Cardiac - Services Needed Following services are medically necessary services: Physical Therapy, Occupational Therapy - Transfer Medications Home Medications: ALPRAZolam [Xanax 0.5 MG Tablet] 0.5 mg PO TID PRN 09/25/16 [History] Amitriptyline [Elavil] 10 mg PO HS 09/25/16 [History] Ascorbate Calcium [Vitamin C] 500 mg PO DAILY 09/25/16 [History] Aspirin [Lo-Dose Aspirin EC] 81 mg PO DAILY 09/25/16 [History] Calcium Carbonate [Calcium] 500 mg PO DAILY 09/25/16 [History] Cholecalciferol (D-3) [Vitamin D] 1,000 unit PO DAILY 09/25/16 [History] Estradiol [Estrace] 1 mg PO HS 09/25/16 [History] HYDROcodone/Acet 5/325 mg [[place] 5-325 mg] 1 tab PO Q6H PRN 09/25/16 [History] Isosorbide MONOnitrate (24 HR) [Imdur] 60 mg PO DAILY 09/25/16 [History] Losartan Potassium [Cozaar] 100 mg PO BID 09/25/16 [History] Omeprazole [PriLOSEC] 20 mg PO DAILY 09/25/16 [History] Potassium Chloride [K-Tab ER] 20 meq PO DAILY 09/25/16 [History] Simvastatin [Zocor] 20 mg PO QPM 09/25/16 [History] Triamterene/HCTZ 37.5/25mg [Dyazide] 1 tab PO DAILY 09/25/16 [History] amLODIPine [Norvasc] 5 mg PO BID 09/25/16 [History] Nitroglycerin 0.4 mg SL Q5MIN PRN #10 tab.subl 09/26/16 [Rx] Allergies/Adverse Reactions: Allergies azithromycin Allergy (Verified 05/19/17 10:35) UNKNOWN ciprofloxacin [From Cipro] Allergy (Verified 05/19/17 10:35) UNKNOWN codeine Allergy (Verified 05/19/17 10:35) UNKNOWN diltiazem [From Cardizem] Allergy (Verified 05/19/17 10:35) UNKNOWN nitrofurantoin [From Macrodantin] Allergy (Verified 05/19/17 10:35) UNKNOWN Penicillins Allergy (Verified 05/19/17 10:35) UNKNOWN pilocarpine Allergy (Verified 05/19/17 10:35) UNKNOWN Sulfa (Sulfonamide Antibiotics) Allergy (Verified 05/19/17 10:35) UNKNOWN sulfamethoxazole [From Bactrim] Allergy (Verified 05/19/17 10:35) UNKNOWN trimethoprim [From Bactrim] Allergy (Verified 05/19/17 10:35) UNKNOWN valsartan [From Diovan] Allergy (Verified 05/19/17 10:35) UNKNOWN Verapamil Allergy (Verified 05/19/17 10:35) UNKNOWN Certification: Further, I certify that my clinical findings support that this patient is homebound (i.e. absences from home require considerable and taxing effort and are for medical reasons or mosque services or infrequently or short duration when for other reasons) because: Homebound Reason: Patient requires assistance of a person or device to safely leave home, Leaving home requires considerable and taxing effort due to condition Attestation: My signature below is to certify that this patient is under my care and that I, or nurse practitioner, or a physician's senior sales assistant working with me, has a face-to -face encounter with this patient.
== END 2017-05-21 17:37 | disposition home health service (06) ==
LOC: EMEROO 16:33 → 3BNU 16:33 → SUATTDRO 20:58 → 3BNU 21:41
PROVIDERS: ADMIT Internal Medicine Endocrinology, Diabetes & Metabolism; ATTEND Internal Medicine

== ENCOUNTER 2017-11-26 18:33 | Observation (INO) ==
[2017-11-26 18:58] LABS: Basophils % 0.5 %; Eosinophils % 0.3 %; Hematocrit 38.2 % (35.3-44.9); Hemoglobin 12.7 g/dL (11.5-15.4); Immature Granulocytes % 0.2 % (0-4); Lymphocytes # 1.5 K/mcL (0.6-4.6); Lymphocytes % 23.5 %; Mean Corpuscular HGB Conc 33.2 g/dL (31.6-35.5); Mean Corpuscular Hemoglobin 27.9 pg (28.0-33.3); Mean Corpuscular Volume 83.8 fL (83.0-100.0); Mean Platelet Volume 10.4 fL (9.4-12.4); Monocytes # 0.4 K/mcL (0.0-1.3); Monocytes % 6.4 %; Neutrophils # 4.4 K/mcL (1.6-8.9); Platelet Count 176 K/mcL (140-400); Red Blood Count 4.56 M/mcL (3.82-4.97); Red Cell Distribution Width 13.9 % (11.5-14.5); Segmented Neutrophils % 69.1 %
[2017-11-26] MEDS ORDERED: Aspirin 81 MG TAB.CHEW PO ONE (19:12)
[2017-11-26 19:13] LABS: BUN/Creatinine Ratio 17 (6-26); Blood Urea Nitrogen 13 mg/dL (8-23); Carbon Dioxide 24 mEq/L (23-29); Chloride 102 mEq/L (98-107); Glucose 152 mg/dL (70-105); Osmolality,Calculated 289 (280-300); Potassium 3.7 mEq/L (3.5-5.1); Sodium 138 mEq/L (136-145); eGFR For African Americans > 60 (> 60); eGFR For Non-African Americans > 60 (> 60)
--- NOTE | 2017-11-26 19:15 | Emergency Department Note ---
Disposition Clinical Impression: Unstable angina Disposition: Home, Self-Care Condition: Fair Referrals: Isaias,Poli Ritter MD [Primary Care Provider] - Forms: ED Satisfaction Letter Time of Disposition: 20:17 General Adult HPI - General Chief complaint: ED Shortness of Breath/Dyspnea Stated complaint: CP/ANDREA Time Seen by Provider: 11/26/17 18:42 Source: patient Mode of arrival: wheelchair Limitations: no limitations Nursing Notes Reviewed: Yes Vital Signs Reviewed: Yes - History of Present Illness HPI Narrative: 82-year-old female presents to the emergency department complaining of chest pain that began approximately 3:00pm she said she was just doing her normal daily activities when she started having a chest pressure and sharp pains beginning the left side of her chest going into her left arm. Patient does have history of triple bypass done in the s. Otherwise has had no abnormalities in her cardiology exams. She does have history of atrial fibrillation as always and is not taking any anticoagulation. She says the pain is 4 out of 10. She did take 3 nitroglycerin after this occurred said it did take away the sharp pain but she still having the pressure. Patient said she checked her blood pressure and noticed it was 180/100 and this worried her. After the nitroglycerin did go down she felt a little better. The reason she came in today is because she had continued high blood pressure and this chest pressure is continued. She does take a baby aspirin a day. Otherwise she says she is healthy lives by herself at home and no other complaints including no nausea, vomiting, fevers, cough, shortness of breath, abdominal pain, changes in bowel movements, pain with urination, pain or tingling of the arms or legs. Pain Scale: 9 - Related Data Home Medications Medication Instructions Recorded Confirmed ALPRAZolam [Xanax 0.5 MG Tablet] 0.5 mg PO TID PRN 09/25/16 11/26/17 Amitriptyline [Elavil] 10 mg PO HS 09/25/16 11/26/17 Ascorbate Calcium [Vitamin C] 500 mg PO DAILY 09/25/16 11/26/17 Aspirin [Lo-Dose Aspirin EC] 81 mg PO DAILY 09/25/16 11/26/17 Calcium Carbonate [Calcium] 500 mg PO DAILY 09/25/16 11/26/17 Cholecalciferol (D-3) [Vitamin D] 1,000 unit PO DAILY 09/25/16 11/26/17 Estradiol [Estrace] 1 mg PO HS 09/25/16 11/26/17 HYDROcodone/Acet 5/325 mg [[place] 1 tab PO Q6H PRN 09/25/16 11/26/17 5-325 mg] Isosorbide MONOnitrate (24 HR) 60 mg PO DAILY 09/25/16 11/26/17 [Imdur] Losartan Potassium [Cozaar] 100 mg PO BID 09/25/16 11/26/17 Omeprazole [PriLOSEC] 20 mg PO DAILY 09/25/16 11/26/17 Potassium Chloride [K-Tab ER] 20 meq PO DAILY 09/25/16 11/26/17 Simvastatin [Zocor] 20 mg PO QPM 09/25/16 11/26/17 Triamterene/HCTZ 37.5/25mg 1 tab PO DAILY 09/25/16 11/26/17 [Dyazide] amLODIPine [Norvasc] 5 mg PO BID 09/25/16 11/26/17 Previous Rx's Medication Instructions Recorded Nitroglycerin 0.4 mg SL Q5MIN PRN #10 tab.subl 09/26/16 Allergies Allergy/AdvReac Type Severity Reaction Status Date / Time azithromycin Allergy UNKNOWN Verified 05/19/17 10:35 ciprofloxacin [From Cipro] Allergy UNKNOWN Verified 05/19/17 10:35 codeine Allergy UNKNOWN Verified 05/19/17 10:35 diltiazem [From Cardizem] Allergy UNKNOWN Verified 05/19/17 10:35 nitrofurantoin Allergy UNKNOWN Verified 05/19/17 10:35 [From Macrodantin] Penicillins Allergy UNKNOWN Verified 05/19/17 10:35 pilocarpine Allergy UNKNOWN Verified 05/19/17 10:35 Sulfa (Sulfonamide Allergy UNKNOWN Verified 05/19/17 10:35 Antibiotics) sulfamethoxazole Allergy UNKNOWN Verified 05/19/17 10:35 [From Bactrim] trimethoprim [From Bactrim] Allergy UNKNOWN Verified 05/19/17 10:35 valsartan [From Diovan] Allergy UNKNOWN Verified 05/19/17 10:35 Verapamil Allergy UNKNOWN Verified 05/19/17 10:35 Review of Systems: 10 point review of systems done and negative unless otherwise stated in history of present illness. All systems ED: reviewed and negative except as stated. Review of Systems: As Per HPI Past Medical History - Past Medical History Attestation: Yes The following information was validated with the patient. Medical history: Reports: coronary artery disease, hyperlipidemia, hypertension Surgical history: Reports: coronary bypass (CABG), hysterectomy Psychiatric history: Reports: anxiety TACTICAL DECEPTION PLANS OFFICER history: Reports: no TACTICAL DECEPTION PLANS OFFICER history - Social History Smoking Status: Unknown if ever smoked Smokeless Tobacco Status: No Alcohol use: Reports: none Drug use: Reports: none Physical Exam - General Limitations: no limitations General appearance: alert, in no apparent distress - Head Head exam: atraumatic, normocephalic, normal inspection - Eye Eye exam: Present: normal appearance, PERRL, EOMI - ENT ENT exam: normal exam, normal oropharynx, mucous membranes moist - Neck Neck exam: Present: normal inspection, full ROM, trachea midline - Chest Chest inspection: Present: normal inspection, symmetric chest wall rise. Absent : tenderness - Respiratory Respiratory exam: Present: normal lung sounds bilaterally. Absent: respiratory distress, wheezes, stridor, accessory muscle use - Cardiovascular Cardiovascular exam: Present: regular rate, normal rhythm, normal heart sounds - Abdominal Exam Abdominal exam: Present: soft, Non-Tender. Absent: tenderness, distention, guarding, rebound, rigidity - Extremities Exam Extremities exam: Present: normal inspection, full ROM. Absent: tenderness, pedal edema, calf tenderness - Expanded Lower Extremity Exam Neurovascular/Tendon exam: Absent: motor deficit, sensory deficit, tendon deficit - Back Exam Back exam: Present: normal inspection, full ROM. Absent: tenderness, CVA tenderness (R), CVA tenderness (L) - Neurological Exam Neurological exam: Present: alert, oriented X3 - Skin Skin exam: Present: warm, dry, intact, normal color Course Course Narrative: 82-year-old female here for chest pain we will do normal chest pain workup including CBC, BMP, troponin. Chest x-ray as well as EKG. We will give patient aspirin and nitroglycerin as needed for pain. This will help lower her blood pressure as well. Patient kept this point. Most likely disposition is admission for chest pain rule out. Vital Signs Temperature 98.4 F 11/26/17 18:36 Pulse Rate 104 11/26/17 18:36 Respiratory Rate 18 11/26/17 18:36 Blood Pressure 198/78 11/26/17 18:36 O2 Sat by Pulse Oximetry 99 11/26/17 18:36 Temperature 98.4 F 11/26/17 18:36 Pulse Rate 71 11/26/17 20:00 Respiratory Rate 18 11/26/17 20:00 Blood Pressure 162/71 11/26/17 20:00 O2 Sat by Pulse Oximetry 99 11/26/17 20:00 Oxygen Delivery Oxygen Delivery Nasal Cannula Medical Decision Making - MDM Narrative Medical decision making narrative: A 82-year-old female presents to emergency department complaining of chest pain. She does have cardiac history including triple bypass done in 1994. His medications since then. She had a normal echocardiogram done in May 2017 and a normal stress done September 2016. She did take 3 nitroglycerin at home should help with her blood pressure as well as the chest pain but it did come back. In the emergency department we did give her full dose aspirin as well as nitroglycerin for chest pain to chest pain was better. We did chest x-ray came back normal all labs were normal including troponin. Did a d-dimer which was elevated to 700 but is normally using age adjustment. There is a very low likelihood of this being a pulmonary embolism. Due to patient's cardiac history we felt that admission for unstable angina would be warranted spoke with the patient she agreed with this plan. Spoke with the hospitalist Dr. Joseph who agreed to admit the patient to their service. The patient is admitted in stable condition. Chest X-Ray 11/26/17 18:42 IMPRESSION: No acute process. D/ / Gera Ontiveros MD / Gera Ontiveros MD Interpreting Provider: Gera Ontiveros MD - Medical Records Medical records reviewed: Yes I reviewed the patient's medical records. - Lab Data Lab results reviewed: Yes I reviewed the patient's lab results. Result diagrams: 11/26/17 18:48 11/26/17 18:48 Lab Results 11/26/17 11/26/17 11/26/17 Range/Units 18:48 18:48 18:48 WBC 6.4 (4.3-11.1) K/mcL RBC 4.56 (3.82-4.97) M/mcL Hgb 12.7 (11.5-15.4) g/dL Hct 38.2 (35.3-44.9) % MCV 83.8 (83.0-100.0) fL MCH 27.9 L (28.0-33.3) pg MCHC 33.2 (31.6-35.5) g/dL RDW 13.9 (11.5-14.5) % Plt Count 176 (140-400) K/mcL MPV 10.4 (9.4-12.4) fL Immature Gran % 0.2 (0-4) % Seg Neutrophils % 69.1 % Lymphocytes % 23.5 % Monocytes % 6.4 % Eosinophils % 0.3 % Basophils % 0.5 % Neutrophils # 4.4 (1.6-8.9) K/mcL Lymphocytes # 1.5 (0.6-4.6) K/mcL Monocytes # 0.4 (0.0-1.3) K/mcL Eosinophils # 0.0 (0.0-0.6) K/mcL Basophils # 0.0 (0.0-0.2) K/mcL D-Dimer (0-500) ng/mLFEU Sodium 138 (136-145) mEq/L Potassium 3.7 (3.5-5.1) mEq/L Chloride 102 (98-107) mEq/L Carbon Dioxide 24 (23-29) mEq/L BUN 13 (8-23) mg/dL Creatinine 0.76 (0.60-1.20) mg/dL Est GFR ( Amer) > 60 (> 60) Est GFR (Non-Af Amer) > 60 (> 60) BUN/Creatinine Ratio 17 (6-26) Glucose 152 H (70-105) mg/dL Calculated Osmolality 289 (280-300) Lactic Acid 2.1 (0.5-2.2) mmol/L Calcium 10.0 (8.6-10.3) mg/dL Troponin I (< 0.04) ng/mL B-Natriuretic Peptide (Less than 100) pg/mL 11/26/17 11/26/17 11/26/17 Range/Units 18:48 18:48 18:49 WBC (4.3-11.1) K/mcL RBC (3.82-4.97) M/mcL Hgb (11.5-15.4) g/dL Hct (35.3-44.9) % MCV (83.0-100.0) fL MCH (28.0-33.3) pg MCHC (31.6-35.5) g/dL RDW (11.5-14.5) % Plt Count (140-400) K/mcL MPV (9.4-12.4) fL Immature Gran % (0-4) % Seg Neutrophils % % Lymphocytes % % Monocytes % % Eosinophils % % Basophils % % Neutrophils # (1.6-8.9) K/mcL Lymphocytes # (0.6-4.6) K/mcL Monocytes # (0.0-1.3) K/mcL Eosinophils # (0.0-0.6) K/mcL Basophils # (0.0-0.2) K/mcL D-Dimer 701 H (0-500) ng/mLFEU Sodium (136-145) mEq/L Potassium (3.5-5.1) mEq/L Chloride (98-107) mEq/L Carbon Dioxide (23-29) mEq/L BUN (8-23) mg/dL Creatinine (0.60-1.20) mg/dL Est GFR ( Amer) (> 60) Est GFR (Non-Af Amer) (> 60) BUN/Creatinine Ratio (6-26) Glucose (70-105) mg/dL Calculated Osmolality (280-300) Lactic Acid (0.5-2.2) mmol/L Calcium (8.6-10.3) mg/dL Troponin I < 0.03 (< 0.04) ng/mL B-Natriuretic Peptide 76 (Less than 100) pg/mL - Radiology Data Radiology results reviewed: Yes I reviewed the patient's radiology results. - EKG Data EKG #1 EKG attestation: Yes I reviewed and interpreted this EKG. EKG results narrative: EKG done 1836 review by myself and attending shows sinus tachycardia with a first-degree AV block and a rate of 102, PO2 67, QRS 86, QTC 392 with a leftward axis. There is no acute ST changes, no acute T wave of normality's. No signs of any ischemia. No signs of any heart strain or hypertrophy. There is a first 3 heart block. Overall as is a nonischemic EKG is compared with one done 05/18/17 and there is no acute changes. S.Len - Karen.Len Situation: Demographics, MOA Background: Presenting Complaint, Relevant PMH, Meds, & Allergies Assessment: Vital Signs, Course and respsone to treatment, Exam Concerns, Pertinant Lab Results Recommendation: Recommendation based on pending studies, treatments, or consults SHiwot Report Given to: Dr. Joseph, hospitalist Mert Repor Time: 20:20 Attestation Statement - Attestation Attestation: I, Scout Strong, examined this patient and my medical decision-making was reviewed with the MANAGER PHARMACY/PA/Advanced Practice Nurse/Resident Physician. I agree with the documented findings, disposition and treatment plan as described except to the extent set forth below. 82-year-old female presents emergency department with concerns of acute onset chest pain shortness of breath. Patient states she had just fed her when she developed acute onset of the symptoms. They lasted about 10-15 minutes before improving however she does still have mild chest pressure present in the emergency department. Initial troponin negative. EKG shows sinus tachycardia with a rate of 102 with first-degree AV block without evidence of STEMI. D- dimer negative with adjustment. Patient be admitted hospital for further care and evaluation of acute onset chest pain.
[2017-11-26] MEDS: Nitroglycerin 0.4 MG TAB.SUBL SL PRN ×3 (20:02→20:40)
[2017-11-26] MEDS ORDERED: Ondansetron ODT 4 MG TAB.RAPDIS SL PRN (23:40)
[2017-11-26] MEDS ORDERED: Naloxone 0.4 MG/ML INJ IVP PRN (23:40)
[2017-11-27] MEDS: ALPRAZolam 0.5 MG TABLET PO PRN ×3 (00:37→22:25)
--- NOTE | 2017-11-27 00:52 | Internal Med History&Physical ---
<Harlan,Oleg - Last Filed: 11/27/17 01:37> Date of Encounter: 11/27/17 Time of Encounter: 23:00 Assessment and Plan (1) Unstable angina Current visit: Yes Status: Acute Chest pressure relieved with administration of nitroglycerin EKG without changes, will repeat in AM No elevation of troponin, will trend x3 Cardiac monitoring Day team to consult cardiology D-dimer was elevated, but do not suspect PE at this point - adge adjusted D-dimer allows for value up to 840 before suspicion increases - resolution of symptoms with nitroglycerin - elevation can also be seen in hypertensive urgency, which this patient presented with (2) Hypertensive urgency Current visit: Yes Status: Acute Controlled since administration of nitroglycerin Restarted home medications Will monitor (3) Afib Current visit: Yes Status: Chronic NSR currently will monitor Patient not on anticoagulation currently CHADSVASC of 4, no apparent contraindication currently Will continue ASA for now Qualifiers: Atrial fibrillation type: unspecified Qualified Code(s): I48.91 - Unspecified atrial fibrillation (4) Hyperlipidemia Current visit: Yes Status: Chronic Continue statin Qualifiers: Hyperlipidemia type: unspecified Qualified Code(s): E78.5 - Hyperlipidemia , unspecified (5) CAD (coronary artery disease) Current visit: Yes Status: Chronic Hx of triple bypass in 1997 Continue statin and ASA Qualifiers: Coronary Disease-Associated Artery/Lesion type: unspecified vessel or lesion type [place] vs. transplanted heart: [place] heart Associated angina: without angina Qualified Code(s): I25.10 - Atherosclerotic heart disease of [place] coronary artery without angina pectoris (6) Hypertension, essential Current visit: Yes Status: Chronic Controlled since administration of nitroglycerin Restarted home medications Will monitor (7) DVT prophylaxis Current visit: Yes Status: Acute Heparin subq q12h Internal Medicine - H&P: HPI Chief complaint: Chest Pressure Admitted From: Home Plans for Post Hospital Care: Home History of present illness: Ms. Arboleda is a 82 year old female who presented with approximately 3 hours of chest pressure. Her symptoms started this morning with "feeling off" and experiencing dizziness. She took her pressure and found it to be 180/100. She took nitroglycerin, which improved her symptoms somewhat. Later in the day, she experienced a few seconds of intense, burning chest pain that radiated in a band across her chest. It was 8-9/10 in intensity. After it abated, she was left with chest pressure. She presented to the ER after three hours, where additional doses of nitroglycerin resolved the pain. Denies SOB, palpitations, nausea, and vomiting. She denies any smoking history. Her past medical history is significant for CAD with triple bypass in 1997, HTN , HLD, GERD, and afib without anticoagulation. Past Med Surg Social Fam HX - Past Medical History Medical history: coronary artery disease, hyperlipidemia, hypertension Psychiatric history: anxiety - Past Surgical History Surgical History: , cholecystectomy, coronary bypass (CABG), hysterectomy - Social History Smoking Status: Never smoker Smokeless Tobacco Status: No Alcohol use: none Drug use: none - Family History Mother Living Status: Hx Family Musculoskeletal Disorders: Yes Father Living Status: Hx Family Cardiac Disorders: Yes ([place]) Internal Medicine - H&P: Meds ALPRAZolam [Xanax 0.5 MG Tablet] 0.5 mg PO TID PRN 09/25/16 [History] Amitriptyline [Elavil] 10 mg PO HS 09/25/16 [History] Ascorbate Calcium [Vitamin C] 500 mg PO DAILY 09/25/16 [History] Aspirin [Lo-Dose Aspirin EC] 81 mg PO DAILY 09/25/16 [History] Calcium Carbonate [Calcium] 500 mg PO DAILY 09/25/16 [History] Cholecalciferol (D-3) [Vitamin D] 1,000 unit PO DAILY 09/25/16 [History] Estradiol [Estrace] 1 mg PO HS 09/25/16 [History] HYDROcodone/Acet 5/325 mg [[place] 5-325 mg] 1 tab PO Q6H PRN 09/25/16 [History] Isosorbide MONOnitrate (24 HR) [Imdur] 60 mg PO DAILY 09/25/16 [History] Losartan Potassium [Cozaar] 100 mg PO BID 09/25/16 [History] Omeprazole [PriLOSEC] 20 mg PO DAILY 09/25/16 [History] Potassium Chloride [K-Tab ER] 20 meq PO DAILY 09/25/16 [History] Simvastatin [Zocor] 20 mg PO QPM 09/25/16 [History] Triamterene/HCTZ 37.5/25mg [Dyazide] 1 tab PO DAILY 09/25/16 [History] amLODIPine [Norvasc] 5 mg PO BID 09/25/16 [History] Nitroglycerin 0.4 mg SL Q5MIN PRN #10 tab.subl 09/26/16 [Rx] 3 Allergy/AdvReac Type Severity Reaction Status Date / Time azithromycin Allergy UNKNOWN Verified 05/19/17 10:35 ciprofloxacin [From Cipro] Allergy UNKNOWN Verified 05/19/17 10:35 codeine Allergy UNKNOWN Verified 05/19/17 10:35 diltiazem [From Cardizem] Allergy UNKNOWN Verified 05/19/17 10:35 nitrofurantoin Allergy UNKNOWN Verified 05/19/17 10:35 [From Macrodantin] Penicillins Allergy UNKNOWN Verified 05/19/17 10:35 pilocarpine Allergy UNKNOWN Verified 05/19/17 10:35 Sulfa (Sulfonamide Allergy UNKNOWN Verified 05/19/17 10:35 Antibiotics) sulfamethoxazole Allergy UNKNOWN Verified 05/19/17 10:35 [From Bactrim] trimethoprim [From Bactrim] Allergy UNKNOWN Verified 05/19/17 10:35 valsartan [From Diovan] Allergy UNKNOWN Verified 05/19/17 10:35 Verapamil Allergy UNKNOWN Verified 05/19/17 10:35 All Systems PM: A 10-system review of systems was performed and is negative for pertinent findings except as documented above in the HPI. Review of systems: As per HPI - Constitutional Vitals: Temp Pulse Resp BP Pulse Ox 97.7 F 75 16 147/75 99 11/26/17 21:52 11/26/17 21:52 11/26/17 21:52 11/26/17 21:52 11/26/17 21:52 General appearance: Present: cooperative, A&O X 3, pleasant, answers questions appropriately - Head Head exam: Present: atraumatic, normal inspection, normocephalic - ENT ENT exam: Present: mucous membranes moist - Neck Neck exam general surgery: Present: trachea midline - Respiratory Respiratory exam: Present: CTAB. Absent: accessory muscle use, chest wall tenderness, respiratory distress - Cardiovascular Cardiovascular exam: Present: RRR, +S1, +S2 - GI/Abdominal GI/Abdominal exam: Present: soft, no peritoneal signs. Absent: tenderness - Extremities Exam Extremities exam: Absent: pedal edema - Psychiatric Psychiatric exam: Present: normal affect, normal mood. Absent: agitated, anxious - Skin Skin exam: Present: dry, warm. Absent: diaphoretic Internal Med - H&P Results - Labs CBC & Chem 7: 11/26/17 18:48 11/26/17 18:48 <Jaya Partida - Last Filed: 11/27/17 05:11> Date of Encounter: 11/27/17 Time of Encounter: 03:45 Past Med Surg Social Fam HX - Past Medical History Source: patient, old records reviewed - Constitutional Constitutional: no chills, no fever(s), no night sweats - EENT Eyes: no blurry vision, no change in vision Ears: no ear pain, no tinnitus Nose, mouth and throat: no nasal congestion, no sore throat - Cardiovascular Cardiovascular ROS IM: chest pain, diaphoresis, dyspnea, dyspnea on exertion, no palpitations, no paroxysmal nocturnal dyspnea, no syncope - Respiratory Respiratory: no cough, no hemoptysis, no wheezing, no chest congestion, no excessive phlegm production, no change in phlegm color - Gastrointestinal Gastrointestinal: no abdominal pain, no diarrhea, no heartburn, no vomiting - Genitourinary Genitourinary: no dysuria, no flank pain, no hematuria - Musculoskeletal Musculoskeletal ROS IM: no arthralgias, no back pain - Integumentary Integumentary IM: no rash, no jaundice - Neurological Neurological ROS: no dizziness, no focal weakness, no frequent falls, no headache(s) - Psychiatric Psychiatric: no anxiety, no confusion - Endocrine Endocrine IM: no polydipsia, no polyuria - Hematologic/Lymphatic Hematologic/Lymphatic: no easy bruising, no lymphadenopathy - Allergic/Immunologic Allergic/Immunologic: no wheezing, no GI upset with certain foods - Constitutional Vitals: Temp Pulse Resp BP Pulse Ox 98.1 F 71 14 122/71 99 11/27/17 04:06 11/27/17 04:06 11/27/17 04:06 11/27/17 04:06 11/27/17 04:06 General appearance: Present: A&O X 3, pleasant, no acute distress Exam: chest pain free now - Head Head exam: Present: normal inspection - Eye Eye exam: Present: EOMI, PERRL. Absent: scleral icterus - ENT ENT exam: Present: mucous membranes dry, normal exam - Neck Neck exam general surgery: Present: full ROM, supple. Absent: lymphadenopathy, nuchal rigidity - Respiratory Respiratory exam: Present: CTAB. Absent: chest wall tenderness, rales, respiratory distress, wheezes - Cardiovascular Cardiovascular exam: Present: RRR, +S1, +S2. Absent: diastolic murmur, systolic murmur - GI/Abdominal GI/Abdominal exam: Present: normal bowel sounds, soft. Absent: hepatomegaly, mass, splenomegaly, tenderness - Extremities Exam Extremities exam: Present: full ROM, normal capillary refill, warm. Absent: calf tenderness, joint swelling, pedal edema - Back Exam Back exam: Absent: CVA tenderness (L), CVA tenderness (R) - Neurological Exam Neurological exam: Present: alert, oriented X3 - Psychiatric Psychiatric exam: Present: normal affect, normal mood - Skin Skin exam: Present: dry, warm. Absent: rash Internal Med - H&P Results - Labs CBC & Chem 7: 11/27/17 01:41 11/27/17 01:41 Labs: Short CBC 11/27/17 Range/Units 01:41 WBC 5.4 (4.3-11.1) K/mcL Hgb 11.7 (11.5-15.4) g/dL Hct 35.3 (35.3-44.9) % Plt Count 160 (140-400) K/mcL BMP 11/27/17 01:41 Sodium 139 Potassium 3.6 Chloride 105 Carbon Dioxide 26 BUN 12 Creatinine 0.70 Glucose 119 H Calcium 9.3 Cardiac Enzymes 11/27/17 Range/Units 01:41 Troponin I < 0.03 (< 0.04) ng/mL - Diagnostic Studies Chest x-ray Status: image reviewed by me (negative except for chronic right lung mass) - Attending Attestation I discussed the patient [place], PMH, ROS, lab data, and exam findings with Dr. Claros. I then saw and examined patient independently as well. Upon my assessment, patient is chest pain free. She confirms that her chest pain was relieved by nitroglycerin and that it was typical of her angina. She denies any pleurisy, hemoptysis, or shortness of breath (except with exertion). She has had no fevers or chills or productive cough. We will trend her troponins, EKG's, and consult cardiology given her prior CAD history. I have a low index of suspicion for PE given her clinical presentation. However, given her lung CA history, I would proceed with CTA to rule out PE. She will likely need Oncology consultation as well. Other than my comments above and noted exam findings, I agree with Dr. Claros' s assessment and plan.
[2017-11-27 02:25] LABS: Hematocrit 35.3 % (35.3-44.9); Hemoglobin 11.7 g/dL (11.5-15.4); Mean Corpuscular HGB Conc 33.1 g/dL (31.6-35.5); Mean Corpuscular Volume 84.4 fL (83.0-100.0); Mean Platelet Volume 10.9 fL (9.4-12.4); Platelet Count 160 K/mcL (140-400); Red Blood Count 4.18 M/mcL (3.82-4.97); Red Cell Distribution Width 13.8 % (11.5-14.5)
[2017-11-27 02:39] LABS: BUN/Creatinine Ratio 17 (6-26); Blood Urea Nitrogen 12 mg/dL (8-23); Calcium 9.3 mg/dL (8.6-10.3); Carbon Dioxide 26 mEq/L (23-29); Chloride 105 mEq/L (98-107); Glucose 119 mg/dL (70-105); Osmolality,Calculated 289 (280-300); Potassium 3.6 mEq/L (3.5-5.1); Sodium 139 mEq/L (136-145); eGFR For African Americans > 60 (> 60); eGFR For Non-African Americans > 60 (> 60)
[2017-11-27] MEDS: *HR* Heparin 5,000 UNIT/ML VIAL SQ SCH ×2 (05:51→18:10)
[2017-11-27] MEDS ORDERED: Isosorbide MONOnitrate (24 HR) 60 MG TAB.ER.24H PO SCH (09:00)
--- NOTE | 2017-11-27 11:37 | Cardiology Consult Note ---
Date of Encounter: 11/27/17 Time of Encounter: 11:00 Assessment and Plan (1) Hypertensive urgency Current Visit: Yes Status: Acute Suspect chest discomfort secondary to elevated BP. Patient reports compliance with medications. Reports recent sinus infection. Patient presented with hypertensive urgency, SBP 198/78. Symptoms have now resolved with normotensive BP's. Will increase imdur, continue to monitor. (2) CAD (coronary artery disease) Current Visit: Yes Status: Chronic Troponin negative x2. No acute ECG changes noted. Recent negative nuclear stress test in 2016. Most recent TTE shows preserved LVEF. Continue asa and statin. Hx of intolerance to BB (HR 30's). Will increase imdur. Qualifiers: Coronary Disease-Associated Artery/Lesion type: unspecified vessel or lesion type [place] vs. transplanted heart: [place] heart Associated angina: without angina Qualified Code(s): I25.10 - Atherosclerotic heart disease of [place] coronary artery without angina pectoris (3) Mobitz type I Wenckebach atrioventricular block Current Visit: Yes Status: Acute Wenckebach noted per telemetry review; typically during nocturnal hours. Patient appears asymptomatic. No indication for PPM. Recommend to telemetry monitoring for additional 24 hours to monitor tele. Avoid AV lino blocking agents. Discussion w patient/family: The assessment and plan as outlined above was discussed with the patient and/or family members who expressed understanding and agreement. All questions were answered. Thank you for involving us in the care of your patient. Please call with any questions. The patient will be discussed and reviewed with Dr. Stein; changes to be made accordingly. History of Present Illness Consult date: 11/27/17 Requesting physician: Dilan Mahmood Consult reason: Hx of CABG Chief complaint: chest pressure/dizziness History of present illness: Ms. Arboleda is a 82 year old female with PMHx significant for CAD s/p [facility] ( [facility]), HLD, vertigo, and HTN who presented to the ED after a hypertensive episode at home yesterday. Patient reports she felt chest pressure/ heaviness, took BP and SBP 180's. She then took x3 total NTG which improved BP to 150's and chest pressure also improved. Later that evening she reports sudden onset of dizziness associated with chest "burning" that radiated across chest. Symptoms eventually subsided without intervention. Reports longstanding history of vertigo however these symptoms were "different." Patient reports has been told she has "afib" however no documentation of afib in prior Cardiology notes or noted on prior ECG's, prior CV testing (stress, echo, holter). Prior CV testing: TTE 05/19/17: LVEF 60-65%, asymmetric hypertrophy of the basal septum, mild LVDD, normal RV structure and function, normal wall motion Regadenoson nuclear stress 09/26/16: negative for ischemia or infarct, gated EF >70% Regadenoson nuclear stress 04/25/15: Negative for ischemia or infarct. Pharmacologic ECG non-diagnostic. Gated EF=75% TTE 04/25/15: LVEF 65%. Mild left ventricular diastolic dysfunction. No significant valvular dysfunction CUS 04/25/15: The bilateral carotid arteries have minimal plaque 09/2014: SR with a run of SVT (Sinus tachycardia and atrial tachycardia); otherwise benign holter monitor recording Past Med Surg Social Fam HX - Past Medical History Attestation: Yes The following information was validated with the patient. Source: patient Medical history: coronary artery disease, hyperlipidemia, hypertension, other ( vertigo) Psychiatric history: anxiety - Past Surgical History Surgical History: , cholecystectomy, coronary bypass (CABG), hysterectomy - Social History Smoking Status: Never smoker Smokeless Tobacco Status: No Alcohol use: none Drug use: none - Family History Mother Living Status: Hx Family Musculoskeletal Disorders: Yes Father Living Status: Hx Family Cardiac Disorders: Yes ([place]) Medications and Allergies ALPRAZolam [Xanax 0.5 MG Tablet] 0.5 mg PO TID PRN 09/25/16 [History] Amitriptyline [Elavil] 10 mg PO HS 09/25/16 [History] Ascorbate Calcium [Vitamin C] 500 mg PO DAILY 09/25/16 [History] Aspirin [Lo-Dose Aspirin EC] 81 mg PO DAILY 09/25/16 [History] Calcium Carbonate [Calcium] 500 mg PO DAILY 09/25/16 [History] Cholecalciferol (D-3) [Vitamin D] 1,000 unit PO DAILY 09/25/16 [History] Estradiol [Estrace] 1 mg PO HS 09/25/16 [History] HYDROcodone/Acet 5/325 mg [[place] 5-325 mg] 1 tab PO Q6H PRN 09/25/16 [History] Isosorbide MONOnitrate (24 HR) [Imdur] 60 mg PO DAILY 09/25/16 [History] Losartan Potassium [Cozaar] 100 mg PO BID 09/25/16 [History] Omeprazole [PriLOSEC] 20 mg PO DAILY 09/25/16 [History] Potassium Chloride [K-Tab ER] 20 meq PO DAILY 09/25/16 [History] Simvastatin [Zocor] 20 mg PO QPM 09/25/16 [History] Triamterene/HCTZ 37.5/25mg [Dyazide] 1 tab PO DAILY 09/25/16 [History] amLODIPine [Norvasc] 5 mg PO BID 09/25/16 [History] Nitroglycerin 0.4 mg SL Q5MIN PRN #10 tab.subl 09/26/16 [Rx] 3 Allergy/AdvReac Type Severity Reaction Status Date / Time azithromycin Allergy UNKNOWN Verified 05/19/17 10:35 ciprofloxacin [From Cipro] Allergy UNKNOWN Verified 05/19/17 10:35 codeine Allergy UNKNOWN Verified 05/19/17 10:35 diltiazem [From Cardizem] Allergy UNKNOWN Verified 05/19/17 10:35 nitrofurantoin Allergy UNKNOWN Verified 05/19/17 10:35 [From Macrodantin] Penicillins Allergy UNKNOWN Verified 05/19/17 10:35 pilocarpine Allergy UNKNOWN Verified 05/19/17 10:35 Sulfa (Sulfonamide Allergy UNKNOWN Verified 05/19/17 10:35 Antibiotics) sulfamethoxazole Allergy UNKNOWN Verified 05/19/17 10:35 [From Bactrim] trimethoprim [From Bactrim] Allergy UNKNOWN Verified 05/19/17 10:35 valsartan [From Diovan] Allergy UNKNOWN Verified 05/19/17 10:35 Verapamil Allergy UNKNOWN Verified 05/19/17 10:35 All Systems Review: A 10-system review of systems was performed and is negative for pertinent findings except as documented above in the HPI. - Cardiovascular Cardiovascular: as per HPI Physical Examination Vital Signs, Last 4 Hours Temp Pulse Resp BP Pulse Ox 11/27/17 10:59 97 F L 72 16 117/66 98 11/27/17 07:35 97.8 F 65 18 116/61 98 General: Conversant HEENT: Atraumatic, Normocephaly Cardiac: Reg Rate and Rhythm, Normal S1 and S2 Lungs: Normal Breath Sounds Neuro: Alert and responsive Abdomen: Soft Skin: No rashes noted on visualized skin Musculoskeletal: No Chest Wall Tenderness Extremities: No Edema, Normal Pulses Results 11/27/17 01:41 11/27/17 01:41 Lab Results 11/27/17 11/27/17 11/27/17 01:41 01:41 01:41 WBC 5.4 Hgb 11.7 Hct 35.3 Plt Count 160 Sodium 139 Potassium 3.6 Chloride 105 Carbon Dioxide 26 BUN 12 Creatinine 0.70 Glucose 119 H Calcium 9.3 Troponin I < 0.03 11/27/17 09:38 WBC Hgb Hct Plt Count Sodium Potassium Chloride Carbon Dioxide BUN Creatinine Glucose Calcium Troponin I < 0.03 Active Medications Alprazolam (Xanax) 0.5 mg PO TID PRN; Protocol PRN Reason: Anxiety Stop: 05/28/18 23:37 Last Admin: 11/27/17 00:37 Dose: 0.5 mg Amitriptyline HCl (Elavil) 10 mg PO HS [facility] Stop: 05/28/18 23:46 Last Admin: 11/27/17 00:37 Dose: 10 mg Amlodipine Besylate (Norvasc) 5 mg PO BID JOSÉ MANUEL PRN Reason: Protocol Stop: 05/29/18 09:01 Aspirin (Aspirin Ec) 81 mg PO DAILY [facility] Stop: 05/29/18 09:01 Docusate Sodium (Colace) 100 mg PO BID PRN PRN Reason: Constipation Stop: 05/28/18 23:41 Heparin Sodium (Porcine) (Heparin) 5,000 unit SQ Q12HCO [facility] Stop: 05/29/18 06:01 Last Admin: 11/27/17 05:51 Dose: 5,000 unit Isosorbide Mononitrate (Imdur) 60 mg PO DAILY [facility] Stop: 05/29/18 09:01 Losartan Potassium (Cozaar) 100 mg PO BID [facility] Stop: 05/29/18 09:01 Naloxone HCl (Narcan) 0.4 mg IVP Q2MIN PRN PRN Reason: Opioid Reversal Stop: 05/28/18 23:41 Nitroglycerin (Nitroglycerin) 0.4 mg SL Q5MIN PRN PRN Reason: Chest Pain Stop: 05/28/18 19:13 Last Admin: 11/26/17 20:40 Dose: 0.4 mg Omeprazole (Prilosec) 20 mg PO DAILY@0730 JOSÉ MANUEL PRN Reason: Protocol Stop: 05/29/18 07:31 Ondansetron HCl (Zofran Odt) 4 mg SL Q8HR PRN PRN Reason: Nausea And Vomiting Stop: 05/28/18 23:41 Simvastatin (Zocor) 20 mg PO QPM JOSÉ MANUEL PRN Reason: Protocol Stop: 05/29/18 18:01 - Imaging and Cardiology Stress Test: report reviewed Echo: report reviewed - EKG Interpretation EKG results cardiology: personally reviewed Consult Discharge Plan - Plan Referrals: Isaias,Poli Ritter MD [Primary Care Provider] -
[2017-11-27] MEDS: Aspirin Enteric Coated 81 MG Tablet PO SCH (11:53)
[2017-11-27] MEDS: amLODIPine 5 MG TABLET PO SCH ×2 (11:53→20:15)
--- NOTE | 2017-11-27 12:24 | Electrocardiograph Report ---
[address] [place] [address] Test Date: 2017-11-26 Pat Name: Claudia Arboleda Department: 104 Room: 3A16 Gender: F Emergency Services Director: LAKSHMI : 1935 Requested By: Scout Strong Order Number: [id number] Reading MD: Yash Badillo MD Measurements Intervals [place] Rate: 102 P: 222 [place]: 267 QRS: 51 QRSD: 86 T: 32 QT: 333 QTc: 392 Interpretive Statements SINUS TACHYCARDIA WITH FIRST DEGREE AV BLOCK ANTEROSEPTAL MYOCARDIAL INFARCTION, PROBABLY OLD Electronically Signed On 11-27-2017 12:23:13 EST by Yash Badillo MD
--- NOTE | 2017-11-27 18:51 | Event Note ---
Date of Encounter: 11/27/17 Time of Encounter: 11:00 Patient seen by food bagging machine operator this morning and also by myself Cardiology consulted with accommodations for increasing imdur addition to 24- hour monitoring on telemetry for morbid type I Wetrukebach
[2017-11-27] MEDS ORDERED: Acetaminophen 325 MG TABLET PO PRN (19:28)
[2017-11-28] MEDS: *HR* Heparin 5,000 UNIT/ML VIAL SQ SCH (05:59)
[2017-11-28] MEDS: Aspirin Enteric Coated 81 MG Tablet PO SCH (08:23)
[2017-11-28] MEDS: amLODIPine 5 MG TABLET PO SCH (08:23)
[2017-11-28] MEDS ORDERED: Isosorbide MONOnitrate (24 HR) 60 MG TAB.ER.24H PO SCH (09:00)
--- NOTE | 2017-11-28 09:13 | Electrophysiology Consult Note ---
<Jessica Handley - Last Filed: 11/28/17 09:18> Date of Encounter: 11/28/17 Time of Encounter: 09:00 Assessment and Plan (1) Atrial flutter Current Visit: Yes Status: Acute Atrial flutter noted per telemetry review overnight, pauses up to 4.1 seconds noted when in atrial flutter. All pauses are during nocturnal hours, patient denies any symptoms overnight. No indication for PPM at this time. Reviewed with Dr. Scout Gambino, recommend 2 week event monitor at discharge. Patient has been on asa only. Reports was told she had afib "years ago"--no recent documentation in the outpatient setting noted. Discussed with Dr. Gambino, recommend full anticoagulation. CHA2Ds Vasc= 5 (age, female, HTN, CAD). NOACs vs. coumadin discussed, patient prefers NOAC due to transportation issues. Will start Xarelto 20 mg daily. Follow-up with [facility] in 3-4 weeks. Qualifiers: Atrial flutter type: unspecified Qualified Code(s): I48.92 - Unspecified atrial flutter (2) Mobitz type I Wenckebach atrioventricular block Current Visit: Yes Status: Acute Wenckebach noted per telemetry review; typically during nocturnal hours. Patient appears asymptomatic--no syncope. Reviewed with Dr. Scout Gambino, no indication for PPM. Avoid AV lino blocking agents. Discussion w patient/family: The assessment and plan as outlined above was discussed with the patient and/or family members who expressed understanding and agreement. All questions were answered. Thank you for involving us in the care of your patient. Please call with any questions. The patient will be discussed and reviewed with Dr. Scout Gambino who agrees with plan as stated above. History of Present Illness Consult date: 11/28/17 Requesting physician: Bobo Stein Consult reason: Aflutter, pause Chief complaint: Chest pain History of present illness: Ms. Arboleda is a 82 year old female with PMHx significant for CAD s/p 3vCABG ( [facility] 3v), HLD, vertigo, and HTN who presented to the ED after a hypertensive episode at home on Saturday. Patient reports she felt chest pressure /heaviness, took BP and was abnormally elevated, SBP 180's. She then took x3 total NTG which improved BP to 150's and chest pressure also improved. Later that evening she reports sudden onset of dizziness associated with chest "burning" that radiated across chest. Symptoms eventually subsided without intervention. Reports longstanding history of vertigo however these symptoms were "different." Patient reports has been told she has "afib" however no documentation of afib in prior Cardiology notes. Prior CV testing: TTE 05/19/17: LVEF 60-65%, asymmetric hypertrophy of the basal septum, mild LVDD, normal RV structure and function, normal wall motion Regadenoson nuclear stress 09/26/16: negative for ischemia or infarct, gated EF >70% Regadenoson nuclear stress 04/25/15: Negative for ischemia or infarct. Pharmacologic ECG non-diagnostic. Gated EF=75% TTE 04/25/15: LVEF 65%. Mild left ventricular diastolic dysfunction. No significant valvular dysfunction CUS 04/25/15: The bilateral carotid arteries have minimal plaque 09/2014: SR with a run of SVT (Sinus tachycardia and atrial tachycardia); otherwise benign holter monitor recording Past Med Surg Social Fam HX - Past Medical History Attestation: Yes The following information was validated with the patient. Source: patient Medical history: atrial fibrillation, coronary artery disease, hyperlipidemia, hypertension, other (vertigo) Psychiatric history: anxiety - Past Surgical History Surgical History: , cholecystectomy, coronary bypass (CABG), hysterectomy - Social History Smoking Status: Never smoker Smokeless Tobacco Status: No Alcohol use: none Drug use: none - Family History Mother Living Status: Hx Family Musculoskeletal Disorders: Yes Father Living Status: Hx Family Cardiac Disorders: Yes ([place]) Medications and Allergies ALPRAZolam [Xanax 0.5 MG Tablet] 0.5 mg PO TID PRN 09/25/16 [History] Amitriptyline [Elavil] 10 mg PO HS 09/25/16 [History] Ascorbate Calcium [Vitamin C] 500 mg PO DAILY 09/25/16 [History] Aspirin [Lo-Dose Aspirin EC] 81 mg PO DAILY 09/25/16 [History] Calcium Carbonate [Calcium] 500 mg PO DAILY 09/25/16 [History] Cholecalciferol (D-3) [Vitamin D] 1,000 unit PO DAILY 09/25/16 [History] Estradiol [Estrace] 1 mg PO HS 09/25/16 [History] HYDROcodone/Acet 5/325 mg [[place] 5-325 mg] 1 tab PO Q6H PRN 09/25/16 [History] Isosorbide MONOnitrate (24 HR) [Imdur] 60 mg PO DAILY 09/25/16 [History] Losartan Potassium [Cozaar] 100 mg PO BID 09/25/16 [History] Omeprazole [PriLOSEC] 20 mg PO DAILY 09/25/16 [History] Potassium Chloride [K-Tab ER] 20 meq PO DAILY 09/25/16 [History] Simvastatin [Zocor] 20 mg PO QPM 09/25/16 [History] Triamterene/HCTZ 37.5/25mg [Dyazide] 1 tab PO DAILY 09/25/16 [History] amLODIPine [Norvasc] 5 mg PO BID 09/25/16 [History] Nitroglycerin 0.4 mg SL Q5MIN PRN #10 tab.subl 09/26/16 [Rx] 3 Allergy/AdvReac Type Severity Reaction Status Date / Time azithromycin Allergy UNKNOWN Verified 05/19/17 10:35 ciprofloxacin [From Cipro] Allergy UNKNOWN Verified 05/19/17 10:35 codeine Allergy UNKNOWN Verified 05/19/17 10:35 diltiazem [From Cardizem] Allergy UNKNOWN Verified 05/19/17 10:35 nitrofurantoin Allergy UNKNOWN Verified 05/19/17 10:35 [From Macrodantin] Penicillins Allergy UNKNOWN Verified 05/19/17 10:35 pilocarpine Allergy UNKNOWN Verified 05/19/17 10:35 Sulfa (Sulfonamide Allergy UNKNOWN Verified 05/19/17 10:35 Antibiotics) sulfamethoxazole Allergy UNKNOWN Verified 05/19/17 10:35 [From Bactrim] trimethoprim [From Bactrim] Allergy UNKNOWN Verified 05/19/17 10:35 valsartan [From Diovan] Allergy UNKNOWN Verified 05/19/17 10:35 Verapamil Allergy UNKNOWN Verified 05/19/17 10:35 All Systems Review: A 10-system review of systems was performed and is negative for pertinent findings except as documented above in the HPI. - Cardiovascular Cardiovascular: as per HPI Physical Examination Vital Signs, Last 4 Hours Temp Pulse Resp BP Pulse Ox 11/28/17 08:49 97.6 F 79 14 109/63 99 General: Conversant, No Apparent Distress HEENT: Atraumatic, Normocephaly, Mucus Membranes Moist Cardiac: Reg Rate and Rhythm, Normal S1 and S2 Lungs: Normal Breath Sounds Neuro: Alert and responsive Abdomen: Soft Skin: No rashes noted on visualized skin Musculoskeletal: No Chest Wall Tenderness Extremities: No Edema, Normal Pulses Results 11/27/17 01:41 11/27/17 01:41 Lab Results 11/27/17 09:38 Troponin I < 0.03 Active Medications Acetaminophen (Tylenol) 650 mg PO Q6HR PRN PRN Reason: Pain Stop: 05/29/18 19:29 Last Admin: 11/27/17 20:14 Dose: 650 mg Alprazolam (Xanax) 0.5 mg PO TID PRN; Protocol PRN Reason: Anxiety Stop: 05/28/18 23:37 Last Admin: 11/27/17 22:25 Dose: 0.5 mg Amitriptyline HCl (Elavil) 10 mg PO HS JOSÉ MANUEL Stop: 05/28/18 23:46 Last Admin: 11/27/17 20:15 Dose: 10 mg Amlodipine Besylate (Norvasc) 5 mg PO BID JOSÉ MANUEL PRN Reason: Protocol Stop: 05/29/18 09:01 Last Admin: 11/28/17 08:23 Dose: 5 mg Aspirin (Aspirin Ec) 81 mg PO DAILY JOSÉ MANUEL Stop: 05/29/18 09:01 Last Admin: 11/28/17 08:23 Dose: 81 mg Docusate Sodium (Colace) 100 mg PO BID PRN PRN Reason: Constipation Stop: 05/28/18 23:41 Isosorbide Mononitrate (Imdur) 90 mg PO DAILY JOSÉ MANUEL Stop: 05/30/18 09:01 Last Admin: 11/28/17 08:23 Dose: 90 mg Losartan Potassium (Cozaar) 100 mg PO BID JOSÉ MANUEL Stop: 05/29/18 09:01 Last Admin: 11/28/17 08:23 Dose: 100 mg Naloxone HCl (Narcan) 0.4 mg IVP Q2MIN PRN PRN Reason: Opioid Reversal Stop: 05/28/18 23:41 Nitroglycerin (Nitroglycerin) 0.4 mg SL Q5MIN PRN PRN Reason: Chest Pain Stop: 05/28/18 19:13 Last Admin: 11/26/17 20:40 Dose: 0.4 mg Omeprazole (Prilosec) 20 mg PO DAILY@0730 JOSÉ MANUEL PRN Reason: Protocol Stop: 05/29/18 07:31 Last Admin: 11/28/17 08:23 Dose: 20 mg Ondansetron HCl (Zofran Odt) 4 mg SL Q8HR PRN PRN Reason: Nausea And Vomiting Stop: 05/28/18 23:41 Rivaroxaban (Xarelto) 20 mg PO 1700 JOSÉ MANUEL Stop: 05/30/18 17:01 Simvastatin (Zocor) 20 mg PO QPM JOSÉ MANUEL PRN Reason: Protocol Stop: 05/29/18 18:01 Last Admin: 11/27/17 18:10 Dose: 20 mg - Imaging and Cardiology Echo: report reviewed - EKG Interpretation EKG results cardiology: personally reviewed Consult Discharge Plan - Plan Referrals: Poli Esparza MD [Primary Care Provider] - <Scout Gambino George - Last Filed: 11/28/17 13:57> Date of Encounter: 11/28/17 - Attending Attestation I have personally performed a face to face evaluation on this patient. I have reviewed and agree with the care plan. History and Exam by me shows: Noted to have wenkebach during the day. AFL with paused noted nocturnally. Would recommend anticoagulation and event monitor at discharge. Assessment and Plan Discussion w patient/family: The assessment and plan as outlined above was discussed with the patient and/or family members who expressed understanding and agreement. All questions were answered. Thank you for involving us in the care of your patient. Please call with any questions. History of Present Illness History of present illness: Ms. Arboleda is a 82 year old female All Systems Review: A 10-system review of systems was performed and is negative for pertinent findings except as documented above in the HPI. Physical Examination Vital Signs, Last 4 Hours Temp Pulse Resp BP Pulse Ox 11/28/17 10:42 98.3 F 81 14 100/56 97 Results 11/27/17 01:41 11/27/17 01:41
[2017-11-28] MEDS ORDERED: *HR* Rivaroxaban 10 MG TABLET PO SCH (09:15)
[2017-11-28 10:46] VITALS: BP 100/56
--- NOTE | 2017-11-28 14:42 | Discharge Summary ---
Date of Encounter: 11/28/17 Time of Encounter: 11:00 - Discharge Diagnosis (1) Chest pain Priority: Primary Status: Resolved Qualifiers: Chest pain type: unspecified Qualified Code(s): R07.9 - Chest pain, unspecified (2) CAD (coronary artery disease) Priority: Secondary Status: Chronic Qualifiers: Coronary Disease-Associated Artery/Lesion type: unspecified vessel or lesion type [place] vs. transplanted heart: [place] heart Associated angina: without angina Qualified Code(s): I25.10 - Atherosclerotic heart disease of [place] coronary artery without angina pectoris (3) Hypertension, essential Priority: Secondary Status: Chronic (4) Afib Priority: Secondary Status: Chronic Qualifiers: Atrial fibrillation type: unspecified Qualified Code(s): I48.91 - Unspecified atrial fibrillation (5) Mobitz type I Wenckebach atrioventricular block Priority: Secondary Status: Acute - Discharge Medications Prescriptions: Isosorbide MONOnitrate (24 HR) [Imdur] 30 mg PO TID #90 tab.er.24h Rivaroxaban [Xarelto] 20 mg PO 1700 #30 tablet Home Medications: ALPRAZolam [Xanax 0.5 MG Tablet] 0.5 mg PO TID PRN 09/25/16 [History] Amitriptyline [Elavil] 10 mg PO HS 09/25/16 [History] Ascorbate Calcium [Vitamin C] 500 mg PO DAILY 09/25/16 [History] Aspirin [Lo-Dose Aspirin EC] 81 mg PO DAILY 09/25/16 [History] Calcium Carbonate [Calcium] 500 mg PO DAILY 09/25/16 [History] Cholecalciferol (D-3) [Vitamin D] 1,000 unit PO DAILY 09/25/16 [History] Estradiol [Estrace] 1 mg PO HS 09/25/16 [History] HYDROcodone/Acet 5/325 mg [[place] 5-325 mg] 1 tab PO Q6H PRN 09/25/16 [History] Losartan Potassium [Cozaar] 100 mg PO BID 09/25/16 [History] Omeprazole [PriLOSEC] 20 mg PO DAILY 09/25/16 [History] Potassium Chloride [K-Tab ER] 20 meq PO DAILY 09/25/16 [History] Simvastatin [Zocor] 20 mg PO QPM 09/25/16 [History] Triamterene/HCTZ 37.5/25mg [Dyazide] 1 tab PO DAILY 09/25/16 [History] amLODIPine [Norvasc] 5 mg PO BID 09/25/16 [History] Nitroglycerin 0.4 mg SL Q5MIN PRN #10 tab.subl 09/26/16 [Rx] Isosorbide MONOnitrate (24 HR) [Imdur] 30 mg PO TID #90 tab.er.24h 11/28/17 [Rx] Rivaroxaban [Xarelto] 20 mg PO 1700 #30 tablet 11/28/17 [Rx] Allergies/Adverse Reactions: 3 Allergy/AdvReac Type Severity Reaction Status Date / Time azithromycin Allergy UNKNOWN Verified 05/19/17 10:35 ciprofloxacin [From Cipro] Allergy UNKNOWN Verified 05/19/17 10:35 codeine Allergy UNKNOWN Verified 05/19/17 10:35 diltiazem [From Cardizem] Allergy UNKNOWN Verified 05/19/17 10:35 nitrofurantoin Allergy UNKNOWN Verified 05/19/17 10:35 [From Macrodantin] Penicillins Allergy UNKNOWN Verified 05/19/17 10:35 pilocarpine Allergy UNKNOWN Verified 05/19/17 10:35 Sulfa (Sulfonamide Allergy UNKNOWN Verified 05/19/17 10:35 Antibiotics) sulfamethoxazole Allergy UNKNOWN Verified 05/19/17 10:35 [From Bactrim] trimethoprim [From Bactrim] Allergy UNKNOWN Verified 05/19/17 10:35 valsartan [From Diovan] Allergy UNKNOWN Verified 05/19/17 10:35 Verapamil Allergy UNKNOWN Verified 05/19/17 10:35 Procedures/tests Complete & Pending: Procedures Performed prior 72 hours Category Date Time Status CT angio chest [CT] Stat Cat Scan 11/27/17 05:09 Completed ECG 12 lead ECG [ECG] AM 0600 Y 11/27/17 06:00 Ordered ECG event monitor 2 weeks [ECG] Routine Y 11/28/17 09:04 Completed EV limited echocardiogram Stat Y 11/27/17 19:10 Completed Date of admission: 11/26/17 20:31 Primary care physician: Poli Esparza MD Consults: 11/27/17 08:06 Consult to Cardiology [CONS] Routine Comment: Consulting Provider: [facility] [place] Reason for Consult: acs rule out Time Notified: 08:00 Call Completed: Yes 11/28/17 09:14 Consult to Electrophysiology (EP) [CONS] Routine Consulting Provider: Electrophysiology Lauren Reason for Consult: sinus pauses Call Completed: Yes - Patient Status Disposition: Home, Self-Care Condition: Fair - Discharge Instructions Follow Up With: Poli Esparza MD [Primary Care Provider] - Hospital course: Patient is an 82-year-old female with past medical history significant for coronary artery disease with triple bypass in 1997, hypertension, hyperlipidemia and atrial fibrillation who presented to the ER on 11/26/17 due to chest pain and shortness of breath. She reported on the day of admission of approximately 3 hours of chest pressure with associated symptoms of dizziness. She took her blood pressure and found it to be elevated at 180/100. Patient decided to take nitroglycerin which did relieve her chest pain. However later in the day patient reexperienced burning chest pain that radiated in a band across her chest with a severity of 8 out of 10. Patient was brought to the ER for evaluation. In the ER, patients cardiac biomarkers were negative and EKG without any ST/T- wave changes. Patient was admitted to the medical floor for ACS rule out. During patients hospital stay, cardiology was consult and patient was noted to have atrial flutter on telemetry in addition to Mobitz type I Wenckebach atrioventricular block. Patient with a CHA2Ds Vasc= 5 (age, female, HTN, CAD). NOACs vs. coumadin discussed and patient prefers NOAC due to transportation issues so patient will be placed on Xarelto 20 mg daily and to follow-up with [facility] in 3-4 weeks. She will also be discharge with an event monitor and follow up with cardiology. - Time Spent with Patient Total time spent providing and/or coordinating discharge services: Less than 30 minutes - Constitutional Vitals: Temp Pulse Resp BP Pulse Ox 98.3 F 81 14 100/56 97 11/28/17 10:42 11/28/17 10:42 11/28/17 10:42 11/28/17 10:42 11/28/17 10:42 General appearance: Present: A&O X 3, pleasant, no acute distress - Respiratory Respiratory exam: Present: CTAB. Absent: accessory muscle use, rales, rhonchi, wheezes - Cardiovascular Cardiovascular exam: Present: RRR, +S1, +S2. Absent: diastolic murmur, gallop, rubs, systolic murmur
== END 2017-11-28 17:04 | disposition home or self-care (01) ==
LOC: 3ANU 18:33 → EMEROO 18:33 → 3ANU 20:57
PROVIDERS: ADMIT Internal Medicine; ATTEND Hospitalist

== ENCOUNTER 2017-12-05 11:18 | Observation (INO) ==
--- NOTE | 2017-12-05 11:56 | Emergency Department Note ---
Disposition Clinical Impression: GI bleed Qualifiers: GI bleed type/associated pathology: unspecified gastrointestinal hemorrhage type Qualified Code(s): K92.2 - Gastrointestinal hemorrhage, unspecified Anemia Qualifiers: Anemia type: unspecified type Qualified Code(s): D64.9 - Anemia, unspecified Disposition: Admitted As Inpatient Condition: Fair Referrals: Poli Esparza MD [Primary Care Provider] - Forms: ED Satisfaction Letter, Work/School Release Time of Disposition: 13:10 Chest Pain HPI - General Chief Complaint: ED General Medical Stated Complaint: Spitting up blood lastnight Time Seen by Provider: 12/05/17 11:46 Source: patient Mode of arrival: ambulatory Limitations: no limitations Vital Signs Reviewed: Yes Nursing Notes Reviewed: Yes - History of Present Illness HPI Narrative: 82-year-old female with a history of new onset A. fib start on throughout the week ago, diabetes heart disease presents for evaluation of blood that she noted in her oropharynx. Patient states she has been coughing. Patient noted an isolated episode of blood when she woke up this morning. States it is bright red. Patient has not noted any since. Patient also has been having dark stools over this timeframe. Patient denies any recent colonoscopies or upper endoscopies. Patient does note that she feels weak. Patient also noted some lightheadedness. Patient denies any coughing. No shortness of breath or chest pain. No nausea or vomiting or abdominal pain. Severity scale (1-10): 0 - Related Data Home Medications Medication Instructions Recorded Confirmed ALPRAZolam [Xanax 0.5 MG Tablet] 0.5 mg PO TID PRN 09/25/16 12/05/17 Amitriptyline [Elavil] 10 mg PO HS 09/25/16 12/05/17 Ascorbate Calcium [Vitamin C] 500 mg PO DAILY 09/25/16 12/05/17 Aspirin [Lo-Dose Aspirin EC] 81 mg PO DAILY 09/25/16 12/05/17 Calcium Carbonate [Calcium] 500 mg PO DAILY 09/25/16 12/05/17 Cholecalciferol (D-3) [Vitamin D] 1,000 unit PO DAILY 09/25/16 12/05/17 Estradiol [Estrace] 1 mg PO HS 09/25/16 12/05/17 HYDROcodone/Acet 5/325 mg [[place] 1 tab PO Q6H PRN 09/25/16 12/05/17 5-325 mg] Losartan Potassium [Cozaar] 100 mg PO BID 09/25/16 12/05/17 Omeprazole [PriLOSEC] 20 mg PO DAILY 09/25/16 12/05/17 Potassium Chloride [K-Tab ER] 20 meq PO DAILY 09/25/16 12/05/17 Simvastatin [Zocor] 20 mg PO QPM 09/25/16 12/05/17 Triamterene/HCTZ 37.5/25mg 1 tab PO DAILY 09/25/16 12/05/17 [Dyazide] amLODIPine [Norvasc] 5 mg PO BID 09/25/16 12/05/17 Previous Rx's Medication Instructions Recorded Nitroglycerin 0.4 mg SL Q5MIN PRN #10 tab.subl 09/26/16 Isosorbide MONOnitrate (24 HR) 30 mg PO TID #90 tab.er.24h 11/28/17 [Imdur] Rivaroxaban [Xarelto] 15 mg PO DAILY #30 tablet 11/28/17 Allergies Allergy/AdvReac Type Severity Reaction Status Date / Time azithromycin Allergy UNKNOWN Verified 05/19/17 10:35 ciprofloxacin [From Cipro] Allergy UNKNOWN Verified 05/19/17 10:35 codeine Allergy UNKNOWN Verified 05/19/17 10:35 diltiazem [From Cardizem] Allergy UNKNOWN Verified 05/19/17 10:35 nitrofurantoin Allergy UNKNOWN Verified 05/19/17 10:35 [From Macrodantin] Penicillins Allergy UNKNOWN Verified 05/19/17 10:35 pilocarpine Allergy UNKNOWN Verified 05/19/17 10:35 Sulfa (Sulfonamide Allergy UNKNOWN Verified 05/19/17 10:35 Antibiotics) sulfamethoxazole Allergy UNKNOWN Verified 05/19/17 10:35 [From Bactrim] trimethoprim [From Bactrim] Allergy UNKNOWN Verified 05/19/17 10:35 valsartan [From Diovan] Allergy UNKNOWN Verified 05/19/17 10:35 Verapamil Allergy UNKNOWN Verified 05/19/17 10:35 All systems ED: reviewed and negative except as stated. Constitutional: Reports: as per HPI. Denies: fever Eyes: Reports: as per HPI ENT ED: Reports: as per HPI Cardiovascular: Reports: as per HPI. Denies: chest pain Respiratory: Reports: as per HPI. Denies: cough, dyspnea Gastrointestinal: Reports: as per HPI. Denies: abdominal pain, nausea, vomiting Genitourinary: Reports: as per HPI Musculoskeletal: Reports: as per HPI Integumentary: Reports: as per HPI Neurological: Reports: as per HPI Psychiatric: Reports: as per HPI Endocrine: Reports: as per HPI Hematological/Lymphatic: Reports: as per HPI Chest Pain PMH - Past Medical History Medical history: Reports: atrial fibrillation, coronary artery disease, hyperlipidemia, hypertension, other Surgical history: Reports: , cholecystectomy, coronary bypass (CABG), hysterectomy Psychiatric history: Reports: anxiety Prior Cardiac Testing/Procedures: CABG (Three-vessel) REGISTERED NURSE FETAL history: Reports: no REGISTERED NURSE FETAL history - Social History Smoking Status: Never smoker Alcohol use: Reports: none Drug use: Reports: none Physical Exam - General Limitations: no limitations General appearance: alert, in no apparent distress - Head Head exam: atraumatic, normocephalic, normal inspection - Eye Eye exam: Present: normal appearance, PERRL, EOMI - ENT ENT exam: normal exam, normal oropharynx - Neck Neck exam: Present: normal inspection - Chest Chest inspection: Present: normal inspection, symmetric chest wall rise - Respiratory Respiratory exam: Present: normal lung sounds bilaterally. Absent: respiratory distress - Cardiovascular Cardiovascular exam: Present: regular rate. Absent: systolic murmur - Abdominal Exam Abdominal exam: Present: soft, Non-Tender. Absent: tenderness, distention, guarding, rebound, rigidity - Rectal Exam [employer] Administrator present during exam: Yes Rectal exam: Present: hemorrhoids (NON THROMBOSISED). Absent: decreased rectal tone, bloody stool - Extremities Exam Extremities exam: Present: normal inspection. Absent: pedal edema - Neurological Exam Neurological exam: Present: alert, oriented X3, CN II-XII intact - Skin Skin exam: Present: warm, dry, intact, normal color Course Course Narrative: Patient seen and examined. Patient appears to be in no acute distress. Patient 's history is most consistent with GI bleed. Patient did basic lab work looking for anemia. Patient also had a chest x-ray EKG. Disposition pending. Vital Signs Temperature 98.1 F 12/05/17 11:23 Pulse Rate 92 12/05/17 11:23 Respiratory Rate 18 12/05/17 11:23 Blood Pressure 162/67 12/05/17 11:23 O2 Sat by Pulse Oximetry 99 12/05/17 11:23 Temperature 98.1 F 12/05/17 11:23 Pulse Rate 70 12/05/17 13:26 Respiratory Rate 14 12/05/17 13:26 Blood Pressure 113/64 12/05/17 13:26 O2 Sat by Pulse Oximetry 97 12/05/17 13:26 Oxygen Delivery Oxygen Delivery Room Air Chest Pain - MDM Narrative Medical decision making narrative: 82-year-old female sent for evaluation of blood in her mouth. Patient is not hemodynamically stable. Patient was recently started on some relative. Patient is anemic however not requiring blood transfusion. Patient is not currently in sinus. Gross rectal exam not reveal bright red blood. Patient did have occult blood on rectal exam. Patient is anemic but not requiring transfusion. Patient's labs otherwise are unremarkable. Patient's EKG now shows sinus. Given the patient's symptoms and GI bleed on new anticoagulation recommend admission to the hospital for further evaluation and possible endoscopy and transition to a different anticoagulation. She is agreeable with this plan of care. - Lab Data Lab results reviewed: Yes I reviewed the patient's lab results. Result diagrams: 12/05/17 12:06 12/05/17 12:06 Lab Results 12/05/17 12/05/17 12/05/17 Range/Units 12:06 12:06 12:06 WBC 6.8 (4.3-11.1) K/mcL RBC 3.76 L (3.82-4.97) M/mcL Hgb 10.6 L (11.5-15.4) g/dL Hct 32.4 L (35.3-44.9) % MCV 86.2 (83.0-100.0) fL MCH 28.2 (28.0-33.3) pg MCHC 32.7 (31.6-35.5) g/dL RDW 14.6 H (11.5-14.5) % Plt Count 156 (140-400) K/mcL MPV 10.4 (9.4-12.4) fL Immature Gran % 0.1 (0-4) % Seg Neutrophils % 76.7 % Lymphocytes % 16.5 % Monocytes % 6.2 % Eosinophils % 0.4 % Basophils % 0.1 % Neutrophils # 5.2 (1.6-8.9) K/mcL Lymphocytes # 1.1 (0.6-4.6) K/mcL Monocytes # 0.4 (0.0-1.3) K/mcL Eosinophils # 0.0 (0.0-0.6) K/mcL Basophils # 0.0 (0.0-0.2) K/mcL PT 13.4 H (9.4-12.1) Seconds INR 1.2 APTT 30.4 (26.0-36.0) Seconds Sodium 136 (136-145) mEq/L Potassium 3.9 (3.5-5.1) mEq/L Chloride 105 (98-107) mEq/L Carbon Dioxide 23 (23-29) mEq/L BUN 18 (8-23) mg/dL Creatinine 0.91 (0.60-1.20) mg/dL Est GFR ( Amer) > 60 (> 60) Est GFR (Non-Af Amer) 59 L (> 60) BUN/Creatinine Ratio 20 (6-26) Glucose 129 H (70-105) mg/dL Calculated Osmolality 286 (280-300) Calcium 9.0 (8.6-10.3) mg/dL Total Bilirubin 0.4 (0.3-1.0) mg/dL AST 19 (13-39) Units/L ALT 12 (7-52) Units/L Alkaline Phosphatase 52 (34-104) Units/L Troponin I (< 0.04) ng/mL Serum Total Protein 7.0 (6.4-8.9) g/dL Albumin 3.9 (3.5-5.7) g/dL Globulin 3.1 (2.4-3.5) g/dL Albumin/Globulin Ratio 1.3 (1.1-2.2) Stool Occult Blood (Negative) Blood Type Antibody Screen 12/05/17 12/05/17 12/05/17 Range/Units 12:06 12:06 12:48 WBC (4.3-11.1) K/mcL RBC (3.82-4.97) M/mcL Hgb (11.5-15.4) g/dL Hct (35.3-44.9) % MCV (83.0-100.0) fL MCH (28.0-33.3) pg MCHC (31.6-35.5) g/dL RDW (11.5-14.5) % Plt Count (140-400) K/mcL MPV (9.4-12.4) fL Immature Gran % (0-4) % Seg Neutrophils % % Lymphocytes % % Monocytes % % Eosinophils % % Basophils % % Neutrophils # (1.6-8.9) K/mcL Lymphocytes # (0.6-4.6) K/mcL Monocytes # (0.0-1.3) K/mcL Eosinophils # (0.0-0.6) K/mcL Basophils # (0.0-0.2) K/mcL PT (9.4-12.1) Seconds INR APTT (26.0-36.0) Seconds Sodium (136-145) mEq/L Potassium (3.5-5.1) mEq/L Chloride (98-107) mEq/L Carbon Dioxide (23-29) mEq/L BUN (8-23) mg/dL Creatinine (0.60-1.20) mg/dL Est GFR ( Amer) (> 60) Est GFR (Non-Af Amer) (> 60) BUN/Creatinine Ratio (6-26) Glucose (70-105) mg/dL Calculated Osmolality (280-300) Calcium (8.6-10.3) mg/dL Total Bilirubin (0.3-1.0) mg/dL AST (13-39) Units/L ALT (7-52) Units/L Alkaline Phosphatase (34-104) Units/L Troponin I < 0.03 (< 0.04) ng/mL Serum Total Protein (6.4-8.9) g/dL Albumin (3.5-5.7) g/dL Globulin (2.4-3.5) g/dL Albumin/Globulin Ratio (1.1-2.2) Stool Occult Blood Positive A (Negative) Blood Type O POSITIVE Antibody Screen NEGATIVE - Radiology Data Radiology results reviewed: Yes I reviewed the patient's radiology results. Chest X-Ray 12/05/17 11:53 IMPRESSION: No radiographic evidence of acute cardiopulmonary process. D/ / Jah Stewart MD / Jah Stewart MD Interpreting Provider: Jah Stewart MD - EKG Data EKG attestation: Yes I reviewed and interpreted this EKG. EKG shows normal: sinus rhythm Rate: normal Rhythm: NSR [place]/QRS: normal Q waves: III, aVR, v1, v2, v3 T wave inversions noted in: aVR Interpretation: no acute changes S.Len - Mert Situation: Demographics Background: Presenting Complaint Assessment: Vital Signs, Course and respsone to treatment, Patient/Family Expectation Recommendation: Barrier(s) to disposition, Recommendation based on pending studies, treatments, or consults SHiwot Report Given to: Dr. Carlota Painting Repor Time: 13:44
[2017-12-05 12:15] LABS: Basophils % 0.1 %; Eosinophils % 0.4 %; Hematocrit 32.4 % (35.3-44.9); Hemoglobin 10.6 g/dL (11.5-15.4); Immature Granulocytes % 0.1 % (0-4); Lymphocytes # 1.1 K/mcL (0.6-4.6); Lymphocytes % 16.5 %; Mean Corpuscular HGB Conc 32.7 g/dL (31.6-35.5); Mean Corpuscular Hemoglobin 28.2 pg (28.0-33.3); Mean Corpuscular Volume 86.2 fL (83.0-100.0); Mean Platelet Volume 10.4 fL (9.4-12.4); Monocytes # 0.4 K/mcL (0.0-1.3); Monocytes % 6.2 %; Neutrophils # 5.2 K/mcL (1.6-8.9); Platelet Count 156 K/mcL (140-400); Red Blood Count 3.76 M/mcL (3.82-4.97); Red Cell Distribution Width 14.6 % (11.5-14.5); Segmented Neutrophils % 76.7 %
[2017-12-05 12:20] LABS: INR 1.2; Prothrombin Time 13.4 Seconds (9.4-12.1)
[2017-12-05 12:23] LABS: Activated Partial Thrombo Time 30.4 Seconds (26.0-36.0)
[2017-12-05 12:31] LABS: Alanine Aminotransferase 12 Units/L (7-52); Albumin 3.9 g/dL (3.5-5.7); Albumin/Globulin Ratio 1.3 (1.1-2.2); Alkaline Phosphatase 52 Units/L (34-104); Aspartate Amino Transferase 19 Units/L (13-39); BUN/Creatinine Ratio 20 (6-26); Bilirubin,Total 0.4 mg/dL (0.3-1.0); Blood Urea Nitrogen 18 mg/dL (8-23); Carbon Dioxide 23 mEq/L (23-29); Chloride 105 mEq/L (98-107); Globulin 3.1 g/dL (2.4-3.5); Glucose 129 mg/dL (70-105); Osmolality,Calculated 286 (280-300); Potassium 3.9 mEq/L (3.5-5.1); Sodium 136 mEq/L (136-145); eGFR For African Americans > 60 (> 60); eGFR For Non-African Americans 59 (> 60)
--- NOTE | 2017-12-05 12:31 | Emergency Department Note ---
START Narrative - START START: I examined this patient and my medical decision-making was reviewed with the Resident Physician. I agree with the documented findings, disposition and treatment plan as described except to the extent set forth below. 82-year-old female presents emergency room for blood in her stool. Patient states she woke up this morning and felt like she had a blood taste in her mouth. She noted some dark colored substance in her mouth. She also has had her colored stool. She was recently started on a blood thinner for her atrial fibrillation that was recently diagnosed within the past 2 weeks. Patient will likely need to be admitted as she is on Xarelto. Patient is also wearing a speech pathology teacher for her recent diagnosis of HIV fibrillation. She has no chest pain. She denies shortness of breath. States she does feel weak and has felt weak since her diagnosis of A. fib. She does feel slightly more weak than normal. She has no abdominal pain or cramping. No fevers.
[2017-12-05] MEDS ORDERED: Ondansetron 4 MG/2 ML VIAL IVP PRN (14:28)
[2017-12-05] MEDS ORDERED: Naloxone 0.4 MG/ML INJ IVP PRN (14:28)
[2017-12-05 15:04] LABS: Hematocrit 30.3 % (35.3-44.9); Hemoglobin 9.9 g/dL (11.5-15.4)
--- NOTE | 2017-12-05 15:20 | Internal Med History&Physical ---
Date of Encounter: 12/05/17 Time of Encounter: 15:20 Assessment and Plan (1) Acute blood loss anemia Current visit: Yes Status: Acute Possibly due to GI bleed NO visible bleeding oral lesion Hb of 10.7, Hb at discharge one week ago was 11. Baseline is 11-12. INR is 1.3. FOBT is positive Repeat stat Hb was 9.9 Patient is currently hemodynamically stable She will be admitted for Acute blood loss anemia with suspected GI Bleed, GI will be consulted and patient will be kept NPO for EGD/Colonoscopy Type and screen is done and patient will be transfused for Hb <8, we will monitor Hb q6h. We will hold ASA and Xarelto for now IV PPI NPO from IN Patient is full code (2) GI bleed Current visit: Yes Status: Acute Pantoprazole drip NPO from IN Clear liquids for now Dr. Clark has been consulted Possible EGD a.m Qualifiers: GI bleed type/associated pathology: unspecified gastrointestinal hemorrhage type Qualified Code(s): K92.2 - Gastrointestinal hemorrhage, unspecified (3) Atrial flutter Current visit: Yes Status: Chronic HR controlled Continue telemetry Continue home meds, hold ASA and Xarelto due to suspected GI bleed Qualifiers: Atrial flutter type: unspecified Qualified Code(s): I48.92 - Unspecified atrial flutter (4) Mobitz type I Wenckebach atrioventricular block Current visit: Yes Status: Chronic Continue current medications May need cardio eval prior to discharge for loop recorder reconciliation We will place the patient on telemetry for now Avoid AV lino agents (5) CAD (coronary artery disease) Current visit: Yes Status: Chronic Hold ASA Continue other meds Qualifiers: Coronary Disease-Associated Artery/Lesion type: unspecified vessel or lesion type [place] vs. transplanted heart: [place] heart Associated angina: without angina Qualified Code(s): I25.10 - Atherosclerotic heart disease of [place] coronary artery without angina pectoris (6) Hyperlipidemia Current visit: Yes Status: Chronic continue home meds Qualifiers: Hyperlipidemia type: unspecified Qualified Code(s): E78.5 - Hyperlipidemia , unspecified (7) Hypertension, essential Current visit: Yes Status: Chronic Controlled, continue home meds Internal Medicine - H&P: HPI Chief complaint: I spit up some blood and my stool is dark Admitted From: Home Plans for Post Hospital Care: Home History of present illness: Ms. Arboleda is a 82 year old female with Afib/flutter recently started on xarelto, CAD, HLD, HTN She states she woke up this morning with a taste of blood in her mouth. patient is a poor historian , she was asked if she spit up blood as in her saliva, or if she regurgitated blood, or coughed up blood. She just states "it was bright red" and it tasted like blood. She however denied hematemesis, hemoptysis. She states her stool has been darker than usual, bus she has a history of hemorrhoids, she denies passing chela red blood per rectum The patient also reports increased lethargy, and lightheadedness. She denies chest pain, shortness of breath or leg swelling. She has not had not had diarrhea, or any changes in her urinary habits. No recent dental procedures, no trauma Work up in the ER revealed Hb of 10.7, Hb at discharge one week ago was 11. Baseline is 11-12. INR is 1.3. FOBT is positive Repeat stat Hb was 9.9 Patient is currently hemodynamically stable She will be admitted for Acute blood loss anemia with suspected GI Bleed, GI will be consulted and patient will be kept NPO for EGD/Colonoscopy Type and screen is done and patient will be transfused for Hb <8, we will monitor Hb q6h. We will hold ASA and Xarelto for now Patient is full code Past Med Surg Social Fam HX - Past Medical History Medical history: atrial fibrillation, coronary artery disease, hyperlipidemia, hypertension, other Psychiatric history: anxiety - Past Surgical History Surgical History: , cholecystectomy, coronary bypass (CABG), hysterectomy - Social History Smoking Status: Never smoker Smokeless Tobacco Status: No Alcohol use: none Drug use: none - Family History Mother Living Status: Father Living Status: Hx Family Cardiac Disorders: Yes (DE) Internal Medicine - H&P: Meds ALPRAZolam [Xanax 0.5 MG Tablet] 0.5 mg PO TID PRN 09/25/16 [History] Amitriptyline [Elavil] 10 mg PO HS 09/25/16 [History] Ascorbate Calcium [Vitamin C] 500 mg PO DAILY 09/25/16 [History] Aspirin [Lo-Dose Aspirin EC] 81 mg PO DAILY 09/25/16 [History] Calcium Carbonate [Calcium] 500 mg PO DAILY 09/25/16 [History] Cholecalciferol (D-3) [Vitamin D] 1,000 unit PO DAILY 09/25/16 [History] Estradiol [Estrace] 1 mg PO HS 09/25/16 [History] HYDROcodone/Acet 5/325 mg [[place] 5-325 mg] 1 tab PO Q6H PRN 09/25/16 [History] Losartan Potassium [Cozaar] 100 mg PO BID 09/25/16 [History] Omeprazole [PriLOSEC] 20 mg PO DAILY 09/25/16 [History] Potassium Chloride [K-Tab ER] 20 meq PO DAILY 09/25/16 [History] Simvastatin [Zocor] 20 mg PO QPM 09/25/16 [History] Triamterene/HCTZ 37.5/25mg [Dyazide] 1 tab PO DAILY 09/25/16 [History] amLODIPine [Norvasc] 5 mg PO BID 09/25/16 [History] Nitroglycerin 0.4 mg SL Q5MIN PRN #10 tab.subl 09/26/16 [Rx] Isosorbide MONOnitrate (24 HR) [Imdur] 30 mg PO TID #90 tab.er.24h 11/28/17 [Rx] Rivaroxaban [Xarelto] 15 mg PO DAILY #30 tablet 11/28/17 [Rx] 3 Allergy/AdvReac Type Severity Reaction Status Date / Time azithromycin Allergy UNKNOWN Verified 05/19/17 10:35 ciprofloxacin [From Cipro] Allergy UNKNOWN Verified 05/19/17 10:35 codeine Allergy UNKNOWN Verified 05/19/17 10:35 diltiazem [From Cardizem] Allergy UNKNOWN Verified 05/19/17 10:35 nitrofurantoin Allergy UNKNOWN Verified 05/19/17 10:35 [From Macrodantin] Penicillins Allergy UNKNOWN Verified 05/19/17 10:35 pilocarpine Allergy UNKNOWN Verified 05/19/17 10:35 Sulfa (Sulfonamide Allergy UNKNOWN Verified 05/19/17 10:35 Antibiotics) sulfamethoxazole Allergy UNKNOWN Verified 05/19/17 10:35 [From Bactrim] trimethoprim [From Bactrim] Allergy UNKNOWN Verified 05/19/17 10:35 valsartan [From Diovan] Allergy UNKNOWN Verified 05/19/17 10:35 Verapamil Allergy UNKNOWN Verified 05/19/17 10:35 All Systems PM: A 10-system review of systems was performed and is negative for pertinent findings except as documented above in the HPI. - Constitutional Constitutional: fatigue, lethargy - EENT Eyes: no change in vision, no discharge, no pain, no photophobia Ears: no ear discharge, no ear pain, no tinnitus Nose, mouth and throat: no dysphagia, no nasal discharge, no neck pain, no sore throat - Cardiovascular Cardiovascular ROS IM: no chest pain, no diaphoresis, no dyspnea, no lightheadedness, no palpitations, no syncope - Respiratory Respiratory: no cough, no dyspnea, no wheezing, no excessive phlegm production - Gastrointestinal Gastrointestinal: as per HPI - Genitourinary Genitourinary: as per HPI - Musculoskeletal Musculoskeletal ROS IM: no numbness, no tingling - Neurological Neurological ROS: as per HPI - Hematologic/Lymphatic Hematologic/Lymphatic: no easy bruising - Constitutional Vitals: Temp Pulse Resp BP Pulse Ox 98.1 F 70 14 113/64 97 12/05/17 11:23 12/05/17 13:26 12/05/17 13:26 12/05/17 13:26 12/05/17 13:26 General appearance: Present: A&O X 3, pleasant, no acute distress - Head Head exam: Present: atraumatic, normocephalic - Eye Eye exam: Present: PERRL, conjuntiva pink, sclera anicteric Pupils: Present: PERRL - ENT Additional comments: no visible bleeding in the oral cavity, oropharynx is pink - Neck Neck exam general surgery: Present: supple, trachea midline. Absent: lymphadenopathy - Respiratory Respiratory exam: Present: CTAB. Absent: accessory muscle use, rales, rhonchi, wheezes - Cardiovascular Cardiovascular exam: Present: irregular rhythm, +S1, +S2. Absent: diastolic murmur, gallop, rubs, systolic murmur - GI/Abdominal GI/Abdominal exam: Present: normal bowel sounds, soft, no peritoneal signs. Absent: distended, tenderness - Extremities Exam Extremities exam: Present: warm, radial pulses palpable and symmetrical. Absent : calf tenderness, cyanotic, pedal edema - Neurological Exam Neurological exam: Present: alert, CN II-XII intact, oriented X3, no focal deficits. Absent: pronater drift, facial droop, speech deficit - Skin Skin exam: Present: dry, intact Internal Med - H&P Results - Labs CBC & Chem 7: 12/05/17 14:52 12/05/17 12:06 Labs: Short CBC 12/05/17 12/05/17 Range/Units 12:06 14:52 WBC 6.8 (4.3-11.1) K/mcL Hgb 10.6 L 9.9 L (11.5-15.4) g/dL Hct 32.4 L 30.3 L (35.3-44.9) % Plt Count 156 (140-400) K/mcL Neutrophils # 5.2 (1.6-8.9) K/mcL BMP 12/05/17 12:06 Sodium 136 Potassium 3.9 Chloride 105 Carbon Dioxide 23 BUN 18 Creatinine 0.91 Glucose 129 H Calcium 9.0 Cardiac Enzymes 12/05/17 Range/Units 12:06 Troponin I < 0.03 (< 0.04) ng/mL Liver Function 12/05/17 Range/Units 12:06 Total Bilirubin 0.4 (0.3-1.0) mg/dL AST 19 (13-39) Units/L ALT 12 (7-52) Units/L Alkaline Phosphatase 52 (34-104) Units/L Albumin 3.9 (3.5-5.7) g/dL - Impressions ITS Impressions Chest X-Ray 12/05/17 11:53 IMPRESSION: No radiographic evidence of acute cardiopulmonary process. D/ / Jah Stewart MD / Jah Stewart MD Interpreting Provider: Jah Stewart MD
[2017-12-05] MEDS: Pantoprazole 40 MG in 0.9 % Sodium Chloride Mini Bag 100 ML IVC SCH ×2 (18:48→23:42)
[2017-12-05] MEDS: Isosorbide MONOnitrate (24 HR) 30 MG TAB.ER.24H PO SCH ×2 (18:48→21:19)
[2017-12-05] MEDS: *HR* HYDROcodone/Acet 5/325 mg TABLET PO PRN (18:59)
[2017-12-05 20:32] LABS: Hematocrit 29.9 % (35.3-44.9); Hemoglobin 9.8 g/dL (11.5-15.4)
[2017-12-05] MEDS: amLODIPine 5 MG TABLET PO SCH (21:18)
[2017-12-05] MEDS: ALPRAZolam 0.5 MG TABLET PO PRN (21:24)
[2017-12-06 05:03] LABS: Hemoglobin A1C 5.3 %
[2017-12-06] MEDS: Pantoprazole 40 MG in 0.9 % Sodium Chloride Mini Bag 100 ML IVC SCH ×2 (05:10→08:50)
[2017-12-06 05:17] LABS: BUN/Creatinine Ratio 18 (6-26); Blood Urea Nitrogen 16 mg/dL (8-23); Calcium 8.4 mg/dL (8.6-10.3); Carbon Dioxide 26 mEq/L (23-29); Chloride 107 mEq/L (98-107); Glucose 89 mg/dL (70-105); Osmolality,Calculated 287 (280-300); Potassium 3.9 mEq/L (3.5-5.1); Sodium 138 mEq/L (136-145); eGFR For African Americans > 60 (> 60); eGFR For Non-African Americans 60 (> 60)
[2017-12-06 05:29] LABS: Basophils % 0.3 %; Eosinophils # 0.1 K/mcL (0.0-0.6); Eosinophils % 2.4 %; Hematocrit 28.8 % (35.3-44.9); Hemoglobin 9.4 g/dL (11.5-15.4); Immature Granulocytes % 0.3 % (0-4); Lymphocytes # 2.2 K/mcL (0.6-4.6); Lymphocytes % 38.5 %; Mean Corpuscular HGB Conc 32.6 g/dL (31.6-35.5); Mean Corpuscular Hemoglobin 28.2 pg (28.0-33.3); Mean Corpuscular Volume 86.5 fL (83.0-100.0); Mean Platelet Volume 10.9 fL (9.4-12.4); Monocytes # 0.6 K/mcL (0.0-1.3); Monocytes % 10.5 %; Neutrophils # 2.8 K/mcL (1.6-8.9); Nucleated Red Blood Cells 0.5 /100 WBC (0); Platelet Count 145 K/mcL (140-400); Red Blood Count 3.33 M/mcL (3.82-4.97); Red Cell Distribution Width 14.7 % (11.5-14.5)
[2017-12-06] MEDS: Isosorbide MONOnitrate (24 HR) 30 MG TAB.ER.24H PO SCH ×3 (08:50→22:13)
[2017-12-06] MEDS: Cholecalciferol (D-3) 1,000 UNIT TABLET PO SCH (08:50)
[2017-12-06] MEDS: amLODIPine 5 MG TABLET PO SCH ×2 (08:50→22:13)
[2017-12-06] MEDS: Ascorbic Acid 500 MG TABLET PO SCH (08:50)
--- NOTE | 2017-12-06 09:46 | Anesthesia Evaluation PreOp ---
Date of Encounter: 12/06/17 Time of Encounter: 09:44 - Past History Planned Operation: EGD Cardiac History: HTN, Hyperlipidemia, Cardiac Surgery (CABG x 3 in 1997), Other (Mobotz type I AV block{Wenkebach's}) Pulmonary History: Denies Any Significant HX SAP FICO ARCHITECT History: Denies Any Significant HX Other Medical History: Denies Any Significant HX Anesthesia History: No Prior Anesthetic Complications, Past Anesthesia Alcohol Use: none Drug use: none Medications and Allergies ALPRAZolam [Xanax 0.5 MG Tablet] 0.5 mg PO TID PRN 09/25/16 [History] Amitriptyline [Elavil] 10 mg PO HS 09/25/16 [History] Ascorbate Calcium [Vitamin C] 500 mg PO DAILY 09/25/16 [History] Aspirin [Lo-Dose Aspirin EC] 81 mg PO DAILY 09/25/16 [History] Calcium Carbonate [Calcium] 500 mg PO DAILY 09/25/16 [History] Cholecalciferol (D-3) [Vitamin D] 1,000 unit PO DAILY 09/25/16 [History] Estradiol [Estrace] 1 mg PO HS 09/25/16 [History] HYDROcodone/Acet 5/325 mg [[place] 5-325 mg] 1 tab PO Q6H PRN 09/25/16 [History] Losartan Potassium [Cozaar] 100 mg PO BID 09/25/16 [History] Omeprazole [PriLOSEC] 20 mg PO DAILY 09/25/16 [History] Potassium Chloride [K-Tab ER] 20 meq PO DAILY 09/25/16 [History] Simvastatin [Zocor] 20 mg PO QPM 09/25/16 [History] Triamterene/HCTZ 37.5/25mg [Dyazide] 1 tab PO DAILY 09/25/16 [History] amLODIPine [Norvasc] 5 mg PO BID 09/25/16 [History] Nitroglycerin 0.4 mg SL Q5MIN PRN #10 tab.subl 09/26/16 [Rx] Isosorbide MONOnitrate (24 HR) [Imdur] 30 mg PO TID #90 tab.er.24h 11/28/17 [Rx] Rivaroxaban [Xarelto] 15 mg PO DAILY #30 tablet 11/28/17 [Rx] 3 Allergy/AdvReac Type Severity Reaction Status Date / Time azithromycin Allergy UNKNOWN Verified 05/19/17 10:35 ciprofloxacin [From Cipro] Allergy UNKNOWN Verified 05/19/17 10:35 codeine Allergy UNKNOWN Verified 05/19/17 10:35 diltiazem [From Cardizem] Allergy UNKNOWN Verified 05/19/17 10:35 nitrofurantoin Allergy UNKNOWN Verified 05/19/17 10:35 [From Macrodantin] Penicillins Allergy UNKNOWN Verified 05/19/17 10:35 pilocarpine Allergy UNKNOWN Verified 05/19/17 10:35 Sulfa (Sulfonamide Allergy UNKNOWN Verified 05/19/17 10:35 Antibiotics) sulfamethoxazole Allergy UNKNOWN Verified 05/19/17 10:35 [From Bactrim] trimethoprim [From Bactrim] Allergy UNKNOWN Verified 05/19/17 10:35 valsartan [From Diovan] Allergy UNKNOWN Verified 05/19/17 10:35 Verapamil Allergy UNKNOWN Verified 05/19/17 10:35 - Meds/Allergy Pre-op Review Medications Reviewed: Yes Allergies Reviewed: Yes Beta Blockers on Current Med List: No Anesthesia Results - Labs 12/06/17 04:35 12/06/17 04:35 - Imaging EKG: report reviewed (11/26/2017 SINUS TACHYCARDIA WITH FIRST DEGREE AV BLOCK ANTEROSEPTAL MYOCARDIAL INFARCTION, PROBABLY OLD) Additional studies: 11/27/2017 Limited Echo Impressions: LVEF 60-65%. Normal LV chamber size and function. Asymmetric hypertrophy of the basal septum. No changes compared to prior report dated 05/19/2017. 05/19/2017 Echo Impressions: LVEF 60-65%. Normal LV chamber size and function. Asymmetric hypertrophy of the basal septum. Mild left ventricular diastolic dysfunction. Atypical septal motion consistent with post-operative status. Normal right ventricular structure and function. No evidence of pulmonary hypertension. No significant valvular dysfunction. 09/26/2016 Stress Impression: Perfusion imaging was negative for ischemia or infarct. Pharmacologic ECG was negative for ischemia at the level of heart rate achieved. Patient had chest pressure with pharmacologic stress. Gated EF = >70%. Anesthesia Exam Vital Signs/O2 Sat/Glucose, Most Recent Temp Pulse Resp BP Pulse Ox 97.8 F 75 16 144/70 98 12/06/17 09:40 12/06/17 09:40 12/06/17 09:40 12/06/17 09:40 12/06/17 09:40 Blood Glucose* 89 Height: 5'1''/1.55 m Weight: 137 lbs/62.3 kg NPO (# of Hours): 8 Pain Scale: 0 Pain Scale Used: Numeric (1 - 10) - HEENT Pupil (Motor): EOMI Mallampati: II Teeth: Normal Oral Opening: Greater than 3 - SAP FICO ARCHITECT LOC: Oriented SAP FICO ARCHITECT Motor: Normal RUE, Normal LUE, Normal RLE, Normal LLE, Normal Face SAP FICO ARCHITECT Sensory: Normal: RUE, LUE, RLE, LLE, Face - Cardiac Rhythm: Regular Murmur: None - Pulmonary Breath Sounds: bilateral Clear Respiratory Effort: Symmetrical Anesthesia Assess/Plan ASA Score: 3 Modified Jose Scale for Level of Consciousness: Cooperative, oriented, and tranquil Anesthetic Plan: MAC Monitoring Plan: Standard Monitors
[2017-12-06] MEDS ORDERED: *HR* Propofol 200 MG/20 ML VIAL IVP ONE (09:54)
[2017-12-06] MEDS ORDERED: Tetracaine/Benzocaine/Butamben 200MG/SPRAY (100SPY/BOT) MM ONE (10:02)
--- NOTE | 2017-12-06 10:25 | Anesthesia Evaluation Post Op ---
Date of Encounter: 12/06/17 Time of Encounter: 10:20 - Vital Signs Vital Signs: 3 Vital Signs Time 1020 BP 179/79 Pulse 78 Resp 22 O2 Sat 99 - Lungs Lungs: Clear Ascult./Percussion - Airway Airway: Non-obstructed - Cardiovascular Regular Rate - Mental Status Mental Status: Alert & Oriented, Answers Appropriately - Nausea Vomiting Nausea Vomiting: Not Present - Hydration Hydration: NPO, Has not voided - Discharge PostOp Status: Transfer Patient to floor
--- NOTE | 2017-12-06 11:06 | Gastroenterology Consult Note ---
<OjedaMerlin anguiano Andreia - Last Filed: 12/06/17 10:59> Date of Encounter: 12/06/17 Time of Encounter: 09:55 - Assessment and plan (1) Anemia Status: Acute Assessment and plan: Hgb on admission was 10.6 and this AM Hgb 9.4. Hgb on 11/27/17 was 11.7. Continue to monitor CBC and transfuse PRBC as needed. Plan for EGD today and colonoscopy tomorrow. After EGD, clear liquid diet today, no red or purple. NPO at midnight. If unable tolerate NuLytely please use MiraLAX prep. If not clear by 6 AM, give 2 tap water enemas. Qualifiers: Anemia type: unspecified type Qualified Code(s): D64.9 - Anemia, unspecified (2) GI bleed Status: Acute Assessment and plan: Plan for EGD today and colonoscopy tomorrow. Continue PPI drip for now. Qualifiers: GI bleed type/associated pathology: unspecified gastrointestinal hemorrhage type Qualified Code(s): K92.2 - Gastrointestinal hemorrhage, unspecified - Time Spent With Patient Total time spent is greater than 50% in coordination of care (as documented) at patient's floor/unit and/or counseling patient: GI History of Present Illness - Data of Consult Patient: new to practice Consult date: 12/06/17 Requesting Physician: Randell Mckinney - Consult Narrative Reason for consult: Possible GI bleed History of present illness: Ms. Arboleda is a 82 year old female with PMHx of Afib on Xarelto, CAD, HLD, HTN who presented to the ED complaining of waking up with tast of blood in her mouth. She was asked if she spit up blood as in her saliva, or if she regurgitated blood, or coughed up blood. She just states "it was bright red" and it tasted like blood. Xarelto and ASA are being held. She denied hematemesis or hemoptysis. She states her stool has been darker than usual. She has a history of hemorrhoids, she denies passing chela red blood per rectum. She denies fever, chills, chest pain, shortness of breath, abdominal pain, nausea, vomiting, diarrhea, or constipation. Hgb on admission was 10.6 and this AM Hgb 9.4. Hgb on 11/27/17 was 11.7. Fecal occult blood test was positive. Procedures: None NSAIDs: ASA Anticoagulation: Xarelto Past Med Surg Social Fam HX - Past Medical History Medical history: atrial fibrillation, coronary artery disease, hyperlipidemia, hypertension, other Psychiatric history: anxiety - Past Surgical History Surgical History: , cholecystectomy, coronary bypass (CABG), hysterectomy - Social History Smoking Status: Never smoker Smokeless Tobacco Status: No Alcohol use: none Drug use: none - Family History Mother Living Status: Father Living Status: Hx Family Cardiac Disorders: Yes - Gastrointestinal Gastrointestinal: Present: as per HPI - Constitutional Constitutional: as per HPI - EENT Eyes: as per HPI Ears: Present: as per HPI Nose, mouth and throat: Present: as per HPI - Cardiovascular Cardiovascular ROS: Present: as per HPI - Respiratory Respiratory IM: Present: as per HPI - Genitourinary Genitourinary: Absent: change in color, Urinary frequency - Neurological ROS Neurological GI: Present: as per HPI - Hematologic/Lymphatic Hematologic/Lymphatic pediatric: Present: as per HPI - Musculoskeletal Musculoskeletal ROS GI: Present: as per HPI - Integumentary Integumentary GI: Present: as per HPI - Psychiatric ROS Psychiatric GI: Present: as per HPI - Endocrine Endocrine IM: Present: as per HPI - Constitutional Vitals: Temp Pulse Resp BP Pulse Ox 97.8 F 75 16 144/70 98 12/06/17 09:40 12/06/17 09:40 12/06/17 09:40 12/06/17 09:40 12/06/17 09:40 General appearance: Present: cooperative, A&O X 3, no acute distress, answers questions appropriately - Head Head exam: Present: atraumatic, normocephalic - Eye Eye exam: Present: normal appearance, sclera anicteric - ENT ENT exam: Present: mucous membranes dry - Neck Neck exam general surgery: Present: normal inspection, trachea midline - Respiratory Respiratory exam: Present: CTAB. Absent: rales, rhonchi - Cardiovascular Cardiovascular exam: Present: RRR, +S1, +S2 - GI/Abdominal GI/Abdominal exam: Present: soft, no peritoneal signs. Absent: distended, firm , guarding, tenderness - Rectal Rectal exam: Present: deferred - Extremities Exam Extremities exam: Present: warm - Neurological Exam Neurological exam: Present: no focal deficits - Psychiatric Psychiatric exam: Present: normal affect, normal mood - Skin Skin exam: Present: dry, intact, normal color, warm Results - Labs CBC & Chem 7: 12/06/17 04:35 12/06/17 04:35 Labs: Last Result Calcium 8.4 mg/dL (8.6-10.3) L 12/06/17 04:35 Troponin I < 0.03 ng/mL (< 0.04) 12/05/17 12:06 Stool Occult Blood Positive (Negative) A 12/05/17 12:48 Entire Visit Hgb 9.4 g/dL (11.5-15.4) L 12/06/17 04:35 Hct 28.8 % (35.3-44.9) L 12/06/17 04:35 PT 13.4 Seconds (9.4-12.1) H 12/05/17 12:06 Total Bilirubin 0.4 mg/dL (0.3-1.0) 12/05/17 12:06 AST 19 Units/L (13-39) 12/05/17 12:06 ALT 12 Units/L (7-52) 12/05/17 12:06 - ABG ABG results: PT/INR, D-dimer PT 13.4 Seconds (9.4-12.1) H 12/05/17 12:06 Consult Discharge Plan - Plan Additional Instructions: Please take full liquid diet for today please stop taking ASA and Xarelto for 10 days f/u with GI Dr. Peters in 1 week f/u with your inspecting engineer as scheduled before regarding your Holter monitor Referrals: Poli Esparza MD [Primary Care Provider] - Carlos Peters MD [Partnered Physician] - (Your appointment has been web requested. The office will contact you in 1-2 days with appointment information.) Prescriptions: Omeprazole [PriLOSEC] 20 mg PO DAILY #60 capsule. <Carlos Peters - Last Filed: 12/11/17 14:32> Date of Encounter: 12/06/17 - Time Spent With Patient Total time spent is greater than 50% in coordination of care (as documented) at patient's floor/unit and/or counseling patient: GI History of Present Illness - Data of Consult Requesting Physician: Randell Mckinney - Consult Narrative History of present illness: Ms. Arboleda is a 82 year old female - Constitutional Vitals: Temp Pulse Resp BP Pulse Ox 97.8 F 73 14 130/53 99 12/08/17 10:30 12/08/17 10:30 12/08/17 10:30 12/08/17 10:30 12/08/17 11:02 Results - Labs CBC & Chem 7: 12/08/17 06:33 12/07/17 03:18 Labs: Last Result Calcium 8.6 mg/dL (8.6-10.3) 12/07/17 03:18 Troponin I < 0.03 ng/mL (< 0.04) 12/05/17 12:06 Stool Occult Blood Positive (Negative) A 12/05/17 12:48 Entire Visit Hgb 8.8 g/dL (11.5-15.4) L 12/08/17 06:33 Hct 26.7 % (35.3-44.9) L 12/08/17 06:33 PT 13.4 Seconds (9.4-12.1) H 12/05/17 12:06 Total Bilirubin 0.4 mg/dL (0.3-1.0) 12/05/17 12:06 AST 19 Units/L (13-39) 12/05/17 12:06 ALT 12 Units/L (7-52) 12/05/17 12:06 - ABG ABG results: PT/INR, D-dimer PT 13.4 Seconds (9.4-12.1) H 12/05/17 12:06 - Attending Attestation Plan EGD and colonoscopy to determine etiology of anemia. Chelsea has not had colonoscopy ever. For this encounter, I have reviewed the [employer] TECHNICIAN or PA documentation, treatment plan, and medical decision making; and I have had face to face time with this patient.
--- NOTE | 2017-12-06 13:11 | Internal Med Progress Note ---
Date of Encounter: 12/06/17 Time of Encounter: 13:08 - Assessment and plan (1) Acute blood loss anemia Current Visit: Yes Status: Acute Assessment and plan: Her Hb dropped down to 9.4 from 11.7 Due to GI bleed cont close monitoring on PPI BID (2) GI bleed Current Visit: Yes Status: Acute Assessment and plan: PPosisble upper GI bleed GI consulted Scheduled for EGD and Colonoscopy Switched to PPI BID Qualifiers: GI bleed type/associated pathology: unspecified gastrointestinal hemorrhage type Qualified Code(s): K92.2 - Gastrointestinal hemorrhage, unspecified (3) Hyperlipidemia Current Visit: Yes Status: Chronic Qualifiers: Hyperlipidemia type: unspecified Qualified Code(s): E78.5 - Hyperlipidemia , unspecified (4) Hypertension, essential Current Visit: Yes Status: Chronic Assessment and plan: Resumed all her home medications (5) History of coronary artery bypass graft x 1 Current Visit: No Status: Chronic Assessment and plan: resumed all her home meds (6) Mobitz type I Wenckebach atrioventricular block Current Visit: Yes Status: Chronic Assessment and plan: She was evaluated by licensed tax consultant on last admission and suggested avoid AV lino zacarias and keep f/u with Card as an out pt Pt is asymptomatic now (7) Atrial flutter Current Visit: Yes Status: Chronic Assessment and plan: rate controlled with home meds Held Xarelto for GI Bleed Qualifiers: Atrial flutter type: unspecified Qualified Code(s): I48.92 - Unspecified atrial flutter - Subjective Interval history: Ms. Arboleda is a 82 year old female with CAD, HLD, HTN and Afib/flutter recently started on xarelto now presented to ER with Hematemesis and dark colored stools. She states she woke up this morning with a taste of blood in her mouth. patient is a poor historian , she was asked if she spit up blood as in her saliva, or if she regurgitated blood, or coughed up blood. She just states "it was bright red" and it tasted like blood. She however denied hematemesis, hemoptysis. She states her stool has been darker than usual, bus she has a history of hemorrhoids, she denies passing chela red blood per rectum. The patient also reports increased lethargy, and lightheadedness. Pt stated she is feeling little better now. Denied any CP / SOB. No more hematemesis. No abdominal pain - Constitutional Vitals: Temp Pulse Resp BP Pulse Ox 97.8 F 75 16 144/70 98 12/06/17 09:40 12/06/17 09:40 12/06/17 09:40 12/06/17 09:40 12/06/17 09:40 General appearance: Present: A&O X 3, pleasant, no acute distress - Head Head exam: Present: atraumatic, normal inspection - Neck Neck exam general surgery: Present: supple - Respiratory Respiratory exam: Present: decreased breath sounds. Absent: rales, respiratory distress, rhonchi, wheezes - Cardiovascular Cardiovascular exam: Present: RRR, +S1, +S2. Absent: tachycardia - GI/Abdominal GI/Abdominal exam: Present: normal bowel sounds, soft. Absent: rebound, rigid, tenderness - Extremities Exam Extremities exam: Absent: calf tenderness, pedal edema, tenderness - Back Exam Back exam: Absent: CVA tenderness (L), CVA tenderness (R) - Psychiatric Psychiatric exam: Present: normal affect, normal mood Internal Medicine: Result - Labs CBC & Chem 7: 12/06/17 04:35 12/06/17 04:35 Labs: Short CBC 12/05/17 12/06/17 Range/Units 20:17 04:35 WBC 5.8 (4.3-11.1) K/mcL Hgb 9.8 L 9.4 L (11.5-15.4) g/dL Hct 29.9 L 28.8 L (35.3-44.9) % Plt Count 145 (140-400) K/mcL Neutrophils # 2.8 (1.6-8.9) K/mcL BMP 12/06/17 04:35 Sodium 138 Potassium 3.9 Chloride 107 Carbon Dioxide 26 BUN 16 Creatinine 0.90 Glucose 89 Calcium 8.4 L - ABG Interpretation ABG results: PT/INR, D-dimer PT 13.4 Seconds (9.4-12.1) H 12/05/17 12:06 Consult Discharge Plan - Plan Referrals: Isaias,Poli Ritter MD [Primary Care Provider] -
--- NOTE | 2017-12-06 13:40 | Electrocardiograph Report ---
[address] [place] [address] Test Date: 2017-12-05 Pat Name: Claudia Arboleda Department: 104 Room: 3A21 Gender: F [employer]: : [id number] Requested By: Maurice Orlando Order Number: [id number] Reading MD: Yash Badillo MD Measurements Intervals Datto Rate: 77 P: 36 ID: [id number] QRS: 33 QRSD: 90 T: 8 QT: 385 QTc: 417 Interpretive Statements SINUS RHYTHM WITH FIRST DEGREE AV BLOCK ANTEROSEPTAL MYOCARDIAL INFARCTION, OF INDETERMINATE AGE Electronically Signed On 12-06-2017 13:39:23 EST by Yash Badillo MD
[2017-12-06] MEDS ORDERED: SODIUM CHLORIDE/NAHCO3/KCL/PEG 4,000 ML SOLN.RECON PO ONE (17:00)
[2017-12-06] MEDS: Pantoprazole 40 MG VIAL IVP SCH (17:37)
[2017-12-06] MEDS: ALPRAZolam 0.5 MG TABLET PO PRN (22:17)
[2017-12-07 04:04] LABS: Basophils % 0.4 %; Eosinophils # 0.2 K/mcL (0.0-0.6); Eosinophils % 2.8 %; Hematocrit 29.3 % (35.3-44.9); Hemoglobin 9.7 g/dL (11.5-15.4); Immature Granulocytes % 0.3 % (0-4); Lymphocytes # 2.4 K/mcL (0.6-4.6); Lymphocytes % 31.3 %; Mean Corpuscular HGB Conc 33.1 g/dL (31.6-35.5); Mean Corpuscular Hemoglobin 28.2 pg (28.0-33.3); Mean Corpuscular Volume 85.2 fL (83.0-100.0); Mean Platelet Volume 10.9 fL (9.4-12.4); Monocytes # 0.7 K/mcL (0.0-1.3); Monocytes % 9.2 %; Neutrophils # 4.2 K/mcL (1.6-8.9); Platelet Count 157 K/mcL (140-400); Red Blood Count 3.44 M/mcL (3.82-4.97); Red Cell Distribution Width 14.7 % (11.5-14.5)
[2017-12-07 04:31] LABS: BUN/Creatinine Ratio 14 (6-26); Blood Urea Nitrogen 11 mg/dL (8-23); Calcium 8.6 mg/dL (8.6-10.3); Carbon Dioxide 25 mEq/L (23-29); Chloride 104 mEq/L (98-107); Glucose 98 mg/dL (70-105); Osmolality,Calculated 279 (280-300); Potassium 3.5 mEq/L (3.5-5.1); Sodium 135 mEq/L (136-145); eGFR For African Americans > 60 (> 60); eGFR For Non-African Americans > 60 (> 60)
[2017-12-07] MEDS: Pantoprazole 40 MG VIAL IVP SCH ×2 (05:52→19:13)
[2017-12-07] MEDS: Ringers Solution, Lactated 1,000 ML IVC SCH (12:00)
[2017-12-07] MEDS ORDERED: Lidocaine -MPF 2% 2 ML VIAL ONE (12:19)
[2017-12-07] MEDS ORDERED: Propofol 500 MG/50 ML INFUS..BTL ONE (12:19)
[2017-12-07] MEDS: *HR* HYDROcodone/Acet 5/325 mg TABLET PO PRN (13:57)
[2017-12-07] MEDS: amLODIPine 5 MG TABLET PO SCH ×2 (13:57→20:02)
[2017-12-07] MEDS: Cholecalciferol (D-3) 1,000 UNIT TABLET PO SCH (13:57)
[2017-12-07] MEDS: Isosorbide MONOnitrate (24 HR) 30 MG TAB.ER.24H PO SCH ×3 (13:57→20:02)
[2017-12-07] MEDS: Ascorbic Acid 500 MG TABLET PO SCH (13:57)
--- NOTE | 2017-12-07 15:57 | Internal Med Progress Note ---
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 need to go back tomorrow for polypectomy since she was off the Xarelto 24hrs only Qualifiers: GI bleed type/associated pathology: unspecified gastrointestinal hemorrhage type Qualified Code(s): K92.2 - Gastrointestinal hemorrhage, unspecified (3) Hyperlipidemia Current Visit: Yes Status: Chronic Qualifiers: Hyperlipidemia type: unspecified Qualified Code(s): E78.5 - Hyperlipidemia , unspecified (4) Hypertension, essential Current Visit: Yes Status: Chronic Assessment and plan: Resumed all her home medications (5) History of coronary artery bypass graft x 1 Current Visit: No Status: Chronic Assessment and plan: resumed all her home meds (6) Mobitz type I Wenckebach atrioventricular block Current Visit: Yes Status: Chronic Assessment and plan: She was evaluated by business project manager on last admission and suggested avoid AV lino zacarias and keep f/u with Card as an out pt Pt is asymptomatic now on Holter monitor (7) Atrial flutter Current Visit: Yes Status: Chronic Assessment and plan: rate controlled with home meds Held Xarelto for GI Bleed Qualifiers: Atrial flutter type: unspecified Qualified Code(s): I48.92 - Unspecified atrial flutter - Subjective Interval history: Ms. Arboleda is a 82 year old female with CAD, HLD, HTN and Afib/flutter recently started on xarelto now presented to ER with Hematemesis and dark colored stools. She states she woke up this morning with a taste of blood in her mouth. patient is a poor historian , she was asked if she spit up blood as in her saliva, or if she regurgitated blood, or coughed up blood. She just states "it was bright red" and it tasted like blood. She however denied hematemesis, hemoptysis. She states her stool has been darker than usual, bus she has a history of hemorrhoids, she denies passing chela red blood per rectum. The patient also reports increased lethargy, and lightheadedness. Pt stated she is feeling little better now. Denied any CP / SOB. No more hematemesis. No abdominal pain . She had colonoscopy done today. - Constitutional Vitals: Temp Pulse Resp BP Pulse Ox 97.8 F 86 16 145/73 98 12/07/17 14:01 12/07/17 14:01 12/07/17 14:01 12/07/17 14:12/07/17 14:01 General appearance: Present: A&O X 3, pleasant, no acute distress - Head Head exam: Present: atraumatic, normal inspection - Neck Neck exam general surgery: Present: supple - Respiratory Respiratory exam: Present: decreased breath sounds. Absent: rales, respiratory distress, rhonchi, wheezes - Cardiovascular Cardiovascular exam: Present: RRR, +S1, +S2. Absent: tachycardia - GI/Abdominal GI/Abdominal exam: Present: normal bowel sounds, soft. Absent: rebound, rigid, tenderness - Extremities Exam Extremities exam: Absent: calf tenderness, pedal edema, tenderness - Back Exam Back exam: Absent: CVA tenderness (L), CVA tenderness (R) - Neurological Exam Neurological exam: Present: alert, oriented X3 - Psychiatric Psychiatric exam: Present: normal affect, normal mood Internal Medicine: Result - Labs CBC & Chem 7: 12/07/17 03:18 12/07/17 03:18 Labs: Short CBC 12/07/17 Range/Units 03:18 WBC 7.5 (4.3-11.1) K/mcL Hgb 9.7 L (11.5-15.4) g/dL Hct 29.3 L (35.3-44.9) % Plt Count 157 (140-400) K/mcL Neutrophils # 4.2 (1.6-8.9) K/mcL BMP 12/07/17 03:18 Sodium 135 L Potassium 3.5 Chloride 104 Carbon Dioxide 25 BUN 11 Creatinine 0.80 Glucose 98 Calcium 8.6 - ABG Interpretation ABG results: PT/INR, D-dimer PT 13.4 Seconds (9.4-12.1) H 12/05/17 12:06 Consult Discharge Plan - Plan Referrals: Poli Esparza MD [Primary Care Provider] -
--- NOTE | 2017-12-07 19:11 | Anesthesia Evaluation Post Op ---
Date of Encounter: 12/07/17 Time of Encounter: 13:15 - Vital Signs Vital Signs: Vital Signs Temp Pulse Resp BP Pulse Ox 12/07/17 13:30 97.8 F 80 16 125/70 100 12/07/17 11:58 81 16 145/69 99 12/07/17 10:40 98.4 F 86 14 121/69 96 12/07/17 07:41 98.3 F 82 15 99/64 98 12/07/17 03:41 97.9 F 70 18 118/68 96 12/07/17 00:14 97.7 F 63 18 157/62 93 Intake and Output 12/07/17 12/07/17 12/07/17 07:59 15:59 23:59 Intake Total 0 / 0 0 / 0 360 / 360 Output Total 0 / 0 150 / 150 Balance 0 / 0 -150 / -150 360 / 360 Intake: Oral 0 / 0 0 / 0 360 / 360 Output: Urine 0 / 0 150 / 150 Other: Meal NPO Dinner Percent of Meal Consumed 40% Stool Size Copious Stool Consistency liquid Stool Characteristics Normal for Patient Stool Color Brown # Bowel Movements 1 Weight 62 kg Blood Glucose* 99 Patient Weight 12/07/17 23:59 Weight 62 kg - Lungs Lungs: Clear Ascult./Percussion - Airway Airway: Non-obstructed - Cardiovascular Baseline Rhythm - Mental Status Mental Status: Alert & Oriented, Answers Appropriately - Pain Pain Scale: 0 Pain Scale used: Numeric (1 - 10) - Nausea Vomiting Nausea Vomiting: Not Present - Hydration Hydration: NPO, Has not voided - Discharge PostOp Status: Transfer Patient to floor Anes Supervising Prov Stmt: Pt VSS and has met criteria for discharge to floor. -MD Dajuan
[2017-12-07] MEDS: ALPRAZolam 0.5 MG TABLET PO PRN (22:06)
[2017-12-08] MEDS: Pantoprazole 40 MG VIAL IVP SCH (05:12)
[2017-12-08 06:46] LABS: Basophils % 0.5 %; Eosinophils # 0.1 K/mcL (0.0-0.6); Eosinophils % 2.4 %; Hematocrit 26.7 % (35.3-44.9); Hemoglobin 8.8 g/dL (11.5-15.4); Immature Granulocytes % 0.3 % (0-4); Lymphocytes % 34.2 %; Mean Corpuscular Hemoglobin 28.2 pg (28.0-33.3); Mean Corpuscular Volume 85.6 fL (83.0-100.0); Mean Platelet Volume 10.1 fL (9.4-12.4); Monocytes # 0.7 K/mcL (0.0-1.3); Monocytes % 11.8 %; Platelet Count 149 K/mcL (140-400); Red Blood Count 3.12 M/mcL (3.82-4.97); Red Cell Distribution Width 14.7 % (11.5-14.5); Segmented Neutrophils % 50.8 %
[2017-12-08] MEDS: Pantoprazole 40 MG in 0.9 % Sodium Chloride Mini Bag 100 ML IVC SCH (07:13)
--- NOTE | 2017-12-08 09:08 | Anesthesia Evaluation PreOp ---
Date of Encounter: 12/08/17 Time of Encounter: 09:06 - Past History Planned Operation: Colonoscopy Cardiac History: HTN, Hyperlipidemia, Arrhythmia (H/O A-Fib), Cardiac Surgery ( CABG x 3 in 1997), Other (Mobitz type I AV block{Wenkebach's}) Pulmonary History: Denies Any Significant HX SUEDING MACHINE TENDER History: Denies Any Significant HX Other Medical History: GERD Anesthesia History: No Prior Anesthetic Complications, Past Anesthesia Alcohol Use: none Drug use: none Medications and Allergies ALPRAZolam [Xanax 0.5 MG Tablet] 0.5 mg PO TID PRN 09/25/16 [History] Amitriptyline [Elavil] 10 mg PO HS 09/25/16 [History] Ascorbate Calcium [Vitamin C] 500 mg PO DAILY 09/25/16 [History] Aspirin [Lo-Dose Aspirin EC] 81 mg PO DAILY 09/25/16 [History] Calcium Carbonate [Calcium] 500 mg PO DAILY 09/25/16 [History] Cholecalciferol (D-3) [Vitamin D] 1,000 unit PO DAILY 09/25/16 [History] Estradiol [Estrace] 1 mg PO HS 09/25/16 [History] HYDROcodone/Acet 5/325 mg [[place] 5-325 mg] 1 tab PO Q6H PRN 09/25/16 [History] Losartan Potassium [Cozaar] 100 mg PO BID 09/25/16 [History] Omeprazole [PriLOSEC] 20 mg PO DAILY 09/25/16 [History] Potassium Chloride [K-Tab ER] 20 meq PO DAILY 09/25/16 [History] Simvastatin [Zocor] 20 mg PO QPM 09/25/16 [History] Triamterene/HCTZ 37.5/25mg [Dyazide] 1 tab PO DAILY 09/25/16 [History] amLODIPine [Norvasc] 5 mg PO BID 09/25/16 [History] Nitroglycerin 0.4 mg SL Q5MIN PRN #10 tab.subl 09/26/16 [Rx] Isosorbide MONOnitrate (24 HR) [Imdur] 30 mg PO TID #90 tab.er.24h 11/28/17 [Rx] Rivaroxaban [Xarelto] 15 mg PO DAILY #30 tablet 11/28/17 [Rx] 3 Allergy/AdvReac Type Severity Reaction Status Date / Time azithromycin Allergy UNKNOWN Verified 05/19/17 10:35 ciprofloxacin [From Cipro] Allergy UNKNOWN Verified 05/19/17 10:35 codeine Allergy UNKNOWN Verified 05/19/17 10:35 diltiazem [From Cardizem] Allergy UNKNOWN Verified 05/19/17 10:35 nitrofurantoin Allergy UNKNOWN Verified 05/19/17 10:35 [From Macrodantin] Penicillins Allergy UNKNOWN Verified 05/19/17 10:35 pilocarpine Allergy UNKNOWN Verified 05/19/17 10:35 Sulfa (Sulfonamide Allergy UNKNOWN Verified 05/19/17 10:35 Antibiotics) sulfamethoxazole Allergy UNKNOWN Verified 05/19/17 10:35 [From Bactrim] trimethoprim [From Bactrim] Allergy UNKNOWN Verified 05/19/17 10:35 valsartan [From Diovan] Allergy UNKNOWN Verified 05/19/17 10:35 Verapamil Allergy UNKNOWN Verified 05/19/17 10:35 - Meds/Allergy Pre-op Review Medications Reviewed: Yes Allergies Reviewed: Yes Beta Blockers on Current Med List: No Anesthesia Results - Labs 12/08/17 06:33 12/07/17 03:18 - Imaging EKG: report reviewed (11/26/2017 SINUS TACHYCARDIA WITH FIRST DEGREE AV BLOCK ANTEROSEPTAL MYOCARDIAL INFARCTION, PROBABLY OLD) Additional studies: 11/27/2017 Limited Echo Impressions: LVEF 60-65%. Normal LV chamber size and function. Asymmetric hypertrophy of the basal septum. No changes compared to prior report dated 05/19/2017. 05/19/2017 Echo Impressions: LVEF 60-65%. Normal LV chamber size and function. Asymmetric hypertrophy of the basal septum. Mild left ventricular diastolic dysfunction. Atypical septal motion consistent with post-operative status. Normal right ventricular structure and function. No evidence of pulmonary hypertension. No significant valvular dysfunction. 09/26/2016 Stress Impression: Perfusion imaging was negative for ischemia or infarct. Pharmacologic ECG was negative for ischemia at the level of heart rate achieved. Patient had chest pressure with pharmacologic stress. Gated EF = >70%. Anesthesia Exam Vital Signs/O2 Sat/Glucose, Most Recent Temp Pulse Resp BP Pulse Ox 98.3 F 61 14 101/58 98 12/08/17 06:40 12/08/17 06:40 12/08/17 06:40 12/08/17 06:40 12/08/17 06:40 Blood Glucose* 92 Height: 5'1''/1.55 m Weight: 136 lbs/62 kg NPO (# of Hours): 8 Pain Scale: 0 Pain Scale Used: Numeric (1 - 10) - HEENT Pupil (Motor): EOMI Mallampati: II Teeth: Normal Oral Opening: Greater than 3 - SUEDING MACHINE TENDER LOC: Oriented SUEDING MACHINE TENDER Motor: Normal RUE, Normal LUE, Normal RLE, Normal LLE, Normal Face SUEDING MACHINE TENDER Sensory: Normal: RUE, LUE, RLE, LLE, Face - Cardiac Rhythm: Regular Murmur: None - Pulmonary Breath Sounds: bilateral Clear Respiratory Effort: Symmetrical Anesthesia Assess/Plan ASA Score: 3 Modified [place] Scale for Level of Consciousness: Cooperative, oriented, and tranquil Anesthetic Plan: MAC Monitoring Plan: Standard Monitors
[2017-12-08] MEDS ORDERED: Propofol 500 MG/50 ML INFUS..BTL ONE (09:17)
--- NOTE | 2017-12-08 10:17 | Anesthesia Evaluation Post Op ---
Date of Encounter: 12/08/17 Time of Encounter: 10:13 - Vital Signs Vital Signs: Vital Signs/O2 Sat, Most Current Temp Pulse Resp BP Pulse Ox 98.3 F 70 16 142/49 99 12/08/17 06:40 12/08/17 09:13 12/08/17 09:13 12/08/17 09:13 12/08/17 09:13 - Lungs Lungs: Clear Ascult./Percussion - Airway Airway: Non-obstructed - Cardiovascular Regular Rate - Mental Status Mental Status: Alert & Oriented, Answers Appropriately - Pain Pain Scale: 0 Pain Scale used: Numeric (1 - 10) - Nausea Vomiting Nausea Vomiting: Not Present - Hydration Hydration: NPO, Has not voided - Discharge PostOp Status: Transfer Patient to floor
[2017-12-08] MEDS: Ringers Solution, Lactated 1,000 ML IVC SCH (10:59)
[2017-12-08] MEDS: amLODIPine 5 MG TABLET PO SCH (11:00)
[2017-12-08] MEDS: Ascorbic Acid 500 MG TABLET PO SCH (11:00)
[2017-12-08] MEDS: Isosorbide MONOnitrate (24 HR) 30 MG TAB.ER.24H PO SCH (11:00)
[2017-12-08] MEDS: Cholecalciferol (D-3) 1,000 UNIT TABLET PO SCH (11:00)
[2017-12-08 11:25] VITALS: BP 130/53
--- NOTE | 2017-12-08 14:08 | Discharge Summary ---
Date of Encounter: 12/08/17 Time of Encounter: 14:03 - Discharge Diagnosis (1) Acute blood loss anemia Priority: Primary Status: Acute (2) GI bleed Priority: Primary Status: Acute Qualifiers: GI bleed type/associated pathology: unspecified gastrointestinal hemorrhage type Qualified Code(s): K92.2 - Gastrointestinal hemorrhage, unspecified (3) Atrial flutter Priority: Secondary Status: Chronic Qualifiers: Atrial flutter type: unspecified Qualified Code(s): I48.92 - Unspecified atrial flutter (4) Mobitz type I Wenckebach atrioventricular block Priority: Secondary Status: Chronic (5) History of coronary artery bypass graft x 1 Priority: Secondary Status: Chronic (6) Hypertension, essential Priority: Secondary Status: Chronic (7) Hyperlipidemia Priority: Secondary Status: Chronic Qualifiers: Hyperlipidemia type: unspecified Qualified Code(s): E78.5 - Hyperlipidemia , unspecified - Discharge Medications Prescriptions: Omeprazole [PriLOSEC] 20 mg PO DAILY #60 capsule.dr Home Medications: ALPRAZolam [Xanax 0.5 MG Tablet] 0.5 mg PO TID PRN 09/25/16 [History] Amitriptyline [Elavil] 10 mg PO HS 09/25/16 [History] Ascorbate Calcium [Vitamin C] 500 mg PO DAILY 09/25/16 [History] Calcium Carbonate [Calcium] 500 mg PO DAILY 09/25/16 [History] Cholecalciferol (D-3) [Vitamin D] 1,000 unit PO DAILY 09/25/16 [History] Estradiol [Estrace] 1 mg PO HS 09/25/16 [History] HYDROcodone/Acet 5/325 mg [[place] 5-325 mg] 1 tab PO Q6H PRN 09/25/16 [History] Losartan Potassium [Cozaar] 100 mg PO BID 09/25/16 [History] Potassium Chloride [K-Tab ER] 20 meq PO DAILY 09/25/16 [History] Simvastatin [Zocor] 20 mg PO QPM 09/25/16 [History] Triamterene/HCTZ 37.5/25mg [Dyazide] 1 tab PO DAILY 09/25/16 [History] amLODIPine [Norvasc] 5 mg PO BID 09/25/16 [History] Nitroglycerin 0.4 mg SL Q5MIN PRN #10 tab.subl 09/26/16 [Rx] Isosorbide MONOnitrate (24 HR) [Imdur] 30 mg PO TID #90 tab.er.24h 11/28/17 [Rx] Omeprazole [PriLOSEC] 20 mg PO DAILY #60 capsule. 12/08/17 [Rx] Allergies/Adverse Reactions: 3 Allergy/AdvReac Type Severity Reaction Status Date / Time azithromycin Allergy UNKNOWN Verified 05/19/17 10:35 ciprofloxacin [From Cipro] Allergy UNKNOWN Verified 05/19/17 10:35 codeine Allergy UNKNOWN Verified 05/19/17 10:35 diltiazem [From Cardizem] Allergy UNKNOWN Verified 05/19/17 10:35 nitrofurantoin Allergy UNKNOWN Verified 05/19/17 10:35 [From Macrodantin] Penicillins Allergy UNKNOWN Verified 05/19/17 10:35 pilocarpine Allergy UNKNOWN Verified 05/19/17 10:35 Sulfa (Sulfonamide Allergy UNKNOWN Verified 05/19/17 10:35 Antibiotics) sulfamethoxazole Allergy UNKNOWN Verified 05/19/17 10:35 [From Bactrim] trimethoprim [From Bactrim] Allergy UNKNOWN Verified 05/19/17 10:35 valsartan [From Diovan] Allergy UNKNOWN Verified 05/19/17 10:35 Verapamil Allergy UNKNOWN Verified 05/19/17 10:35 Date of admission: 12/05/17 15:25 Primary care physician: Poli Esparza MD - Patient Status Disposition: Home, Self-Care Condition: Good Overall status at discharge: patient is back to baseline - Discharge Instructions Follow Up With: Poli Esparza MD [Primary Care Provider] - Carlos Peters MD [Partnered Physician] - Additional Instructions: Please take full liquid diet for today please stop taking ASA and Xarelto for 10 days f/u with GI Dr. 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 Arboleda is a 82 year old female with CAD, HLD, HTN and Afib/flutter recently started on xarelto now presented to ER with Hematemesis and dark colored stools. She states she woke up this morning with a taste of blood in her mouth. patient is a poor historian , she was asked if she spit up blood as in her saliva, or if she regurgitated blood, or coughed up blood. She just states "it was bright red" and it tasted like blood. She however denied hematemesis, hemoptysis. She states her stool has been darker than usual, bus she has a history of hemorrhoids, she denies passing chela red blood per rectum. The patient also reports increased lethargy, and lightheadedness. Pt was admitted in the hospital and placed her NPO and started her on IV hydration. Held her Xarelto and ASA. Denied any CP / SOB. No more hematemesis. No abdominal pain . 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 She was started on PPI BID . Her Hb stayed stable around 8.8. She did go for Colonoscopy, found a non bleeding polyp which go removed today. GI cleared her to go home today and continue full liquid diet for 24hrs. Also recommend to continue holding Xarelto / ASA for 10 days. Pt has been tolerating pO intake well , denied any abdominal pain. So will d/c her home in stable condition today. - Time Spent with Patient Total time spent providing and/or coordinating discharge services: - Constitutional Vitals: Temp Pulse Resp BP Pulse Ox 97.8 F 73 14 130/53 99 12/08/17 10:30 12/08/17 10:30 12/08/17 10:30 12/08/17 10:30 12/08/17 11:02 General appearance: Present: A&O X 3, pleasant, no acute distress - Head Head exam: Present: atraumatic, normal inspection - Neck Neck exam general surgery: Present: supple - Respiratory Respiratory exam: Present: decreased breath sounds. Absent: rales, respiratory distress, rhonchi, wheezes - Cardiovascular Cardiovascular exam: Present: RRR, +S1, +S2. Absent: tachycardia - GI/Abdominal GI/Abdominal exam: Present: normal bowel sounds, soft. Absent: rebound, rigid, tenderness - Extremities Exam Extremities exam: Absent: calf tenderness, pedal edema, tenderness - Back Exam Back exam: Absent: CVA tenderness (L), CVA tenderness (R) - Neurological Exam Neurological exam: Present: alert, oriented X3 - Psychiatric Psychiatric exam: Present: normal affect, normal mood
== END 2017-12-08 15:24 | disposition home or self-care (01) ==
LOC: EMEROO 11:18 → 3ANU 11:18
PROVIDERS: ADMIT Family Medicine; ATTEND Internal Medicine

== ENCOUNTER 2018-01-26 20:22 | Inpatient (IN) ==
[2018-01-26] MEDS ORDERED: Nitroglycerin 0.4 MG TAB.SUBL SL PRN (20:55)
[2018-01-26] MEDS ORDERED: 0.9 % Sodium Chloride 500 ML IVC ONE (20:55)
--- NOTE | 2018-01-26 20:58 | Emergency Department Note ---
Disposition Clinical Impression: Chest pain Qualifiers: Chest pain type: unspecified Qualified Code(s): R07.9 - Chest pain, unspecified Afib Qualifiers: Atrial fibrillation type: unspecified Qualified Code(s): I48.91 - Unspecified atrial fibrillation Disposition: Admitted As Inpatient Condition: Fair Referrals: Poli Esparza MD [Primary Care Provider] - Forms: ED Satisfaction Letter Time of Disposition: 22:02 Chest Pain HPI - General Chief Complaint: ED Chest Pain Stated Complaint: chest paint Time Seen by Provider: 01/26/18 20:48 Source: patient, EMS Mode of arrival: EMS Limitations: no limitations Vital Signs Reviewed: Yes Nursing Notes Reviewed: Yes - History of Present Illness HPI Narrative: 83-year-old female with history of paroxysmal A. fib, hypertension, CAD presents for evaluation of chest pain and palpitations. Patient states and [place] was around 7:00 this evening. Patient states she took her blood pressure was notably elevated. Patient also had some retrosternal chest pressure without radiation. Nonexertional. Patient denies any nausea vomiting or diaphoresis. Patient states she took a nitroglycerin which temporarily improved the pain. Patient states the pain is recurring. Patient denies any shortness of breath. Patient denies any abdominal pain. Patient states she is scheduled to get pacemaker in February. Patient is not on any blood thinners. Patient received 4 baby aspirin prior to arrival. Severity scale (1-10): 0 - Related Data Home Medications Medication Instructions Recorded Confirmed ALPRAZolam [Xanax 0.5 MG Tablet] 0.5 mg PO TID PRN 09/25/16 12/05/17 Amitriptyline [Elavil] 10 mg PO HS 09/25/16 12/05/17 Ascorbate Calcium [Vitamin C] 500 mg PO DAILY 09/25/16 12/05/17 Calcium Carbonate [Calcium] 500 mg PO DAILY 09/25/16 12/05/17 Cholecalciferol (D-3) [Vitamin D] 1,000 unit PO DAILY 09/25/16 12/05/17 Estradiol [Estrace] 1 mg PO HS 09/25/16 12/05/17 HYDROcodone/Acet 5/325 mg [[place] 1 tab PO Q6H PRN 09/25/16 12/05/17 5-325 mg] Losartan Potassium [Cozaar] 100 mg PO BID 09/25/16 12/05/17 Potassium Chloride [K-Tab ER] 20 meq PO DAILY 09/25/16 12/05/17 Simvastatin [Zocor] 20 mg PO QPM 09/25/16 12/05/17 Triamterene/HCTZ 37.5/25mg 1 tab PO DAILY 09/25/16 12/05/17 [Dyazide] amLODIPine [Norvasc] 5 mg PO BID 09/25/16 12/05/17 Previous Rx's Medication Instructions Recorded Nitroglycerin 0.4 mg SL Q5MIN PRN #10 tab.subl 09/26/16 Isosorbide MONOnitrate (24 HR) 30 mg PO TID #90 tab.er.24h 11/28/17 [Imdur] Omeprazole [PriLOSEC] 20 mg PO DAILY #60 capsule. 12/08/17 Allergies Allergy/AdvReac Type Severity Reaction Status Date / Time azithromycin Allergy UNKNOWN Verified 05/19/17 10:35 ciprofloxacin [From Cipro] Allergy UNKNOWN Verified 05/19/17 10:35 codeine Allergy UNKNOWN Verified 05/19/17 10:35 diltiazem [From Cardizem] Allergy UNKNOWN Verified 05/19/17 10:35 nitrofurantoin Allergy UNKNOWN Verified 05/19/17 10:35 [From Macrodantin] Penicillins Allergy UNKNOWN Verified 05/19/17 10:35 pilocarpine Allergy UNKNOWN Verified 05/19/17 10:35 Sulfa (Sulfonamide Allergy UNKNOWN Verified 05/19/17 10:35 Antibiotics) sulfamethoxazole Allergy UNKNOWN Verified 05/19/17 10:35 [From Bactrim] trimethoprim [From Bactrim] Allergy UNKNOWN Verified 05/19/17 10:35 valsartan [From Diovan] Allergy UNKNOWN Verified 05/19/17 10:35 Verapamil Allergy UNKNOWN Verified 05/19/17 10:35 All systems ED: reviewed and negative except as stated. Constitutional: Denies: fever Cardiovascular: Reports: chest pain, palpitations. 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 TRIM history - Social History Smoking Status: Never smoker Alcohol use: Reports: none Drug use: Reports: none Physical Exam - General Limitations: no limitations General appearance: alert, in no apparent distress, anxious - Head Head exam: atraumatic, normocephalic, normal inspection - Eye Eye exam: Present: normal appearance, PERRL, EOMI - ENT ENT exam: normal exam, normal oropharynx, mucous membranes moist - Neck Neck exam: Present: normal inspection - Chest Chest inspection: Present: normal inspection, symmetric chest wall rise - Respiratory Respiratory exam: Present: normal lung sounds bilaterally. Absent: respiratory distress - Cardiovascular Cardiovascular exam: Present: normal rhythm, irregular rhythm. Absent: systolic murmur - Abdominal Exam Abdominal exam: Present: soft, Non-Tender - Extremities Exam Extremities exam: Present: normal inspection. Absent: pedal edema - Expanded Lower Extremity Exam Neurovascular/Tendon exam: Present: normal capillary refill - Neurological Exam Neurological exam: Present: alert, oriented X3 - Skin Skin exam: Present: warm, dry, intact, normal color Course Course Narrative: Patient seen and examined. Patient will get basic labs, EKG troponin. Patient will likely be admitted. - Reevaluation(s) Reevaluation #1: Patient's chest pain is controlled. Time: 22:04 Vital Signs Temperature 97.5 F L 01/26/18 20:37 Pulse Rate 108 01/26/18 20:37 Respiratory Rate 24 01/26/18 20:37 Blood Pressure 163/81 01/26/18 20:37 O2 Sat by Pulse Oximetry 96 01/26/18 20:37 Temperature 97.5 F L 01/26/18 20:37 Pulse Rate 75 01/26/18 21:18 Respiratory Rate 16 01/26/18 21:18 Blood Pressure 153/63 01/26/18 21:18 O2 Sat by Pulse Oximetry 99 01/26/18 21:18 Oxygen Delivery Oxygen Delivery Room Air Chest Pain - Lab Data Result diagrams: 01/26/18 20:58 01/26/18 20:58 Lab Results 01/26/18 01/26/18 01/26/18 Range/Units 20:48 20:48 20:58 WBC 5.1 (4.3-11.1) K/mcL RBC 4.06 (3.82-4.97) M/mcL Hgb 10.9 L (11.5-15.4) g/dL Hct 34.4 L (35.3-44.9) % MCV 84.7 (83.0-100.0) fL MCH 26.8 L (28.0-33.3) pg MCHC 31.7 (31.6-35.5) g/dL RDW 13.4 (11.5-14.5) % Plt Count 192 (140-400) K/mcL MPV 10.4 (9.4-12.4) fL Immature Gran % 0.0 (0-4) % Seg Neutrophils % 55.4 % Lymphocytes % 32.7 % Monocytes % 9.7 % Eosinophils % 1.6 % Basophils % 0.6 % Neutrophils # 2.8 (1.6-8.9) K/mcL Lymphocytes # 1.7 (0.6-4.6) K/mcL Monocytes # 0.5 (0.0-1.3) K/mcL Eosinophils # 0.1 (0.0-0.6) K/mcL Basophils # 0.0 (0.0-0.2) K/mcL PT 10.9 (9.4-12.1) Seconds INR 1.0 APTT 27.6 (26.0-36.0) Seconds Sodium (136-145) mEq/L Potassium (3.5-5.1) mEq/L Chloride (98-107) mEq/L Carbon Dioxide (23-29) mEq/L BUN (8-23) mg/dL Creatinine (0.60-1.20) mg/dL Est GFR ( Amer) (> 60) Est GFR (Non-Af Amer) (> 60) BUN/Creatinine Ratio (6-26) Glucose (70-105) mg/dL Calculated Osmolality (280-300) Calcium (8.6-10.3) mg/dL Troponin I (< 0.04) ng/mL B-Natriuretic Peptide 69 (Less than 100) pg/mL 01/26/18 Range/Units 20:58 WBC (4.3-11.1) K/mcL RBC (3.82-4.97) M/mcL Hgb (11.5-15.4) g/dL Hct (35.3-44.9) % MCV (83.0-100.0) fL MCH (28.0-33.3) pg MCHC (31.6-35.5) g/dL RDW (11.5-14.5) % Plt Count (140-400) K/mcL MPV (9.4-12.4) fL Immature Gran % (0-4) % Seg Neutrophils % % Lymphocytes % % Monocytes % % Eosinophils % % Basophils % % Neutrophils # (1.6-8.9) K/mcL Lymphocytes # (0.6-4.6) K/mcL Monocytes # (0.0-1.3) K/mcL Eosinophils # (0.0-0.6) K/mcL Basophils # (0.0-0.2) K/mcL PT (9.4-12.1) Seconds INR APTT (26.0-36.0) Seconds Sodium 137 (136-145) mEq/L Potassium 3.7 (3.5-5.1) mEq/L Chloride 105 (98-107) mEq/L Carbon Dioxide 22 L (23-29) mEq/L BUN 10 (8-23) mg/dL Creatinine 0.63 (0.60-1.20) mg/dL Est GFR ( Amer) > 60 (> 60) Est GFR (Non-Af Amer) > 60 (> 60) BUN/Creatinine Ratio 16 (6-26) Glucose 147 H (70-105) mg/dL Calculated Osmolality 286 (280-300) Calcium 9.5 (8.6-10.3) mg/dL Troponin I < 0.03 (< 0.04) ng/mL B-Natriuretic Peptide (Less than 100) pg/mL - EKG Data EKG attestation: Yes I reviewed and interpreted this EKG. EKG shows normal: sinus rhythm Rhythm: A.Fib [place]/QRS: normal Q waves: v1, v2 When compared to previous EKG there are: changes noted (Patient was in sinus rhythm with prior EKGs 11/2017) Interpretation: nonspecific ST-T wave changes Heart Score - Score History: Moderately Suspicious EKG: Non Specific repolarisation Disturbance Age: Greater than 65 Risk Factors: Equal/Greater than 3 risk factor or history of atherosclerotic disease Troponin: Less than normal limit HEART Score Total: 6 S.B.A.R. - S.B.A.R. Situation: Demographics Background: Presenting Complaint Assessment: Vital Signs, Course and respsone to treatment, Patient/Family Expectation Recommendation: Barrier(s) to disposition, Recommendation based on pending studies, treatments, or consults Mert Report Given to: Dr. Jake Painting Repor Time: 22:02 Attestation Statement - Attestation Attestation: Patient was seen with resident physician. I reviewed the history, physical, assessment and plan, and agree with the findings. I also personally evaluated this patient and had [id number] time with this patient. 83-year-old female presents emergency Department with chief complaint of chest pain and A. fib. Patient has intermittent atrial fibrillation for which she schedule get a pacemaker in February. Patient states that she developed chest pain approximately 1-2 hours prior to arrival. Midsternal pressure sensation. She denied sure which helped a little bit and in the squad they gave her aspirin which again helped a little bit but she still having some discomfort at the time of examination. Patient states that she has not had fevers or chills. No shortness of breath either. Remainder of review of systems is unremarkable. Examination vital signs were stable. ENT is unremarkable. Heart irregularly irregular rhythm. Lungs clear. Abdomen soft and nontender. Extremities no swelling no other abnormalities. Neurologically alert and oriented. Skin no rashes. Psych normal. ED course. EKG demonstrates atrial fibrillation which is changed from her comparable EKG in November of this year. I we will do workup for ACS, we will treat with nitroglycerin deceiving get her pain-free. Once we have some initial lab data we will contact the hospitalist service to arrange for admission for treatment for atrial fibrillation and chest pain. Agree with the resident physician assessment and plan.
[2018-01-26 21:21] LABS: Basophils % 0.6 %; Eosinophils # 0.1 K/mcL (0.0-0.6); Eosinophils % 1.6 %; Hematocrit 34.4 % (35.3-44.9); Hemoglobin 10.9 g/dL (11.5-15.4); Lymphocytes # 1.7 K/mcL (0.6-4.6); Lymphocytes % 32.7 %; Mean Corpuscular HGB Conc 31.7 g/dL (31.6-35.5); Mean Corpuscular Hemoglobin 26.8 pg (28.0-33.3); Mean Corpuscular Volume 84.7 fL (83.0-100.0); Mean Platelet Volume 10.4 fL (9.4-12.4); Monocytes # 0.5 K/mcL (0.0-1.3); Monocytes % 9.7 %; Neutrophils # 2.8 K/mcL (1.6-8.9); Platelet Count 192 K/mcL (140-400); Red Blood Count 4.06 M/mcL (3.82-4.97); Red Cell Distribution Width 13.4 % (11.5-14.5); Segmented Neutrophils % 55.4 %
[2018-01-26 21:26] LABS: Prothrombin Time 10.9 Seconds (9.4-12.1)
[2018-01-26 21:29] LABS: Activated Partial Thrombo Time 27.6 Seconds (26.0-36.0)
[2018-01-26 21:42] LABS: BUN/Creatinine Ratio 16 (6-26); Blood Urea Nitrogen 10 mg/dL (8-23); Calcium 9.5 mg/dL (8.6-10.3); Carbon Dioxide 22 mEq/L (23-29); Chloride 105 mEq/L (98-107); Glucose 147 mg/dL (70-105); Osmolality,Calculated 286 (280-300); Potassium 3.7 mEq/L (3.5-5.1); Sodium 137 mEq/L (136-145); eGFR For African Americans > 60 (> 60); eGFR For Non-African Americans > 60 (> 60)
[2018-01-26 21:43] LABS: Troponin I < 0.03 ng/mL (< 0.04)
--- NOTE | 2018-01-26 23:47 | Internal Med History&Physical ---
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 Currently heart rate is well controlled, consult auto refinisher Qualifiers: Atrial fibrillation type: paroxysmal Qualified Code(s): I48.0 - Paroxysmal atrial fibrillation (3) CAD (coronary artery disease) Current visit: Yes Status: Chronic Stated post CABG in continue aspirin Qualifiers: Coronary Disease-Associated Artery/Lesion type: unspecified vessel or lesion type [place] vs. transplanted heart: [place] heart Associated angina: without angina Qualified Code(s): I25.10 - Atherosclerotic heart disease of [place] coronary artery without angina pectoris (4) Hyperlipidemia Current visit: Yes Status: Chronic Qualifiers: Hyperlipidemia type: unspecified Qualified Code(s): E78.5 - Hyperlipidemia , unspecified (5) Hypertension, essential Current visit: Yes Status: Chronic Internal Medicine - H&P: HPI Chief complaint: chest pain Admitted From: Home Plans for Post Hospital Care: Home History of present illness: Ms. Arboleda is a 83 year old female hx of paroxysmal A. fib, hypertension, CAD presents for evaluation of chest pain and palpitations. Patient has a history of a CAD status post CABG, developed acute onset chest pains 7 PM this evening , chest pains located to left side 7 out of 10 pressure-like, associated with dizziness and shortness of breath. She check her blood pressure was off the chart. chest pain has no radiations . She was given aspirin by EMS but not nitroglycerin, chest pain improved to 2-3 out of 10. She looks comfortable on room air vitals are stable. Patient denies fever or chills no nausea vomiting diarrhea no abdominal pain. Patient has paroxysmal atrial fibrillation unable to tolerate Xarelto due to abdominal pain, currently on aspirin. Patient stated that she has been seeing auto refinisher and is going to get a pacemaker in February. Patient is going to be admitted for possible angina chest pain. Consult a auto refinisher Past Med Surg Social Fam HX - Past Medical History Medical history: atrial fibrillation, coronary artery disease, hyperlipidemia, hypertension, other Psychiatric history: anxiety - Past Surgical History Surgical History: , cholecystectomy, coronary bypass (CABG), hysterectomy - Social History Smoking Status: Never smoker Smokeless Tobacco Status: No Alcohol use: none Drug use: none - Family History Mother Living Status: Father Living Status: Hx Family Cardiac Disorders: Yes Internal Medicine - H&P: Meds ALPRAZolam [Xanax 0.5 MG Tablet] 0.5 mg PO TID PRN 09/25/16 [History] Amitriptyline [Elavil] 10 mg PO HS 09/25/16 [History] Ascorbate Calcium [Vitamin C] 500 mg PO DAILY 09/25/16 [History] Calcium Carbonate [Calcium] 500 mg PO DAILY 09/25/16 [History] Cholecalciferol (D-3) [Vitamin D] 1,000 unit PO DAILY 09/25/16 [History] Estradiol [Estrace] 1 mg PO HS 09/25/16 [History] HYDROcodone/Acet 5/325 mg [[place] 5-325 mg] 1 tab PO Q6H PRN 09/25/16 [History] Losartan Potassium [Cozaar] 100 mg PO BID 09/25/16 [History] Potassium Chloride [K-Tab ER] 20 meq PO DAILY 09/25/16 [History] Simvastatin [Zocor] 20 mg PO QPM 09/25/16 [History] Triamterene/HCTZ 37.5/25mg [Dyazide] 1 tab PO DAILY 09/25/16 [History] amLODIPine [Norvasc] 5 mg PO BID 09/25/16 [History] Nitroglycerin 0.4 mg SL Q5MIN PRN #10 tab.subl 09/26/16 [Rx] Isosorbide MONOnitrate (24 HR) [Imdur] 30 mg PO TID #90 tab.er.24h 11/28/17 [Rx] Omeprazole [PriLOSEC] 20 mg PO DAILY #60 caryn. 12/08/17 [Rx] 3 Allergy/AdvReac Type Severity Reaction Status Date / Time azithromycin Allergy UNKNOWN Verified 05/19/17 10:35 ciprofloxacin [From Cipro] Allergy UNKNOWN Verified 05/19/17 10:35 codeine Allergy UNKNOWN Verified 05/19/17 10:35 diltiazem [From Cardizem] Allergy UNKNOWN Verified 05/19/17 10:35 nitrofurantoin Allergy UNKNOWN Verified 05/19/17 10:35 [From Macrodantin] Penicillins Allergy UNKNOWN Verified 05/19/17 10:35 pilocarpine Allergy UNKNOWN Verified 05/19/17 10:35 Sulfa (Sulfonamide Allergy UNKNOWN Verified 05/19/17 10:35 Antibiotics) sulfamethoxazole Allergy UNKNOWN Verified 05/19/17 10:35 [From Bactrim] trimethoprim [From Bactrim] Allergy UNKNOWN Verified 05/19/17 10:35 valsartan [From Diovan] Allergy UNKNOWN Verified 05/19/17 10:35 Verapamil Allergy UNKNOWN Verified 05/19/17 10:35 All Systems PM: A 10-system review of systems was performed and is negative for pertinent findings except as documented above in the HPI. - Constitutional Vitals: Temp Pulse Resp BP Pulse Ox 97.9 F 95 16 176/69 97 01/26/18 22:51 01/26/18 22:51 01/26/18 22:51 01/26/18 22:51 01/26/18 22:51 General appearance: Present: cooperative, A&O X 3, pleasant Exam: CONSTITUTIONAL: Patient appears as an age appropriate female well developed, in no acute distress. EYES Clear sclerae, bilateral pupils are equal, reactive to light and accommodation. Extraocular movements are intact RESPIRATORY: No accessory muscle use, bilateral clear to auscultation, no wheezing, no crackles/rales. CARDIOVASCULAR: Regular heart rate, normal S1 and S2, no murmurs GASTROINTESTINAL: bowel sounds present, soft, no tenderness. No hepatosplenomegaly. No bilateral CVA tenderness MUSCULOSKELETAL: Joints in normal range of motion, no clubbing, no edema, no cyanosis. Bilateral peripheral pulses 2+ LYMPHATIC no lymphadenopathy in neck, groin and axilla bilaterally, no thyromegaly. NEUROLOGIC: CN II to XII are grossly intact, no focal neurological deficit. Deep tendon reflexes 2+ bilaterally. Normal light touch sensation to upper and lower extremity PSYCHIATRIC: Oriented x3, with good insight, mood is euthymic. No hallucinations or delusions. SKIN: Skin warm and dry, no rashes, no open wound. Internal Med - H&P Results - Labs CBC & Chem 7: 01/26/18 20:58 01/26/18 20:58
[2018-01-26] MEDS ORDERED: *HR* Morphine 2 MG/ML SYRINGE IVP PRN (23:56)
[2018-01-27] MEDS: ALPRAZolam 0.5 MG TABLET PO PRN ×3 (00:49→22:17)
[2018-01-27 01:23] LABS: Basophils % 0.7 %; Eosinophils % 0.7 %; Hematocrit 34.1 % (35.3-44.9); Hemoglobin 10.9 g/dL (11.5-15.4); Immature Granulocytes % 0.2 % (0-4); Lymphocytes # 1.9 K/mcL (0.6-4.6); Lymphocytes % 32.3 %; Mean Corpuscular Hemoglobin 27.3 pg (28.0-33.3); Mean Corpuscular Volume 85.3 fL (83.0-100.0); Mean Platelet Volume 10.6 fL (9.4-12.4); Monocytes # 0.6 K/mcL (0.0-1.3); Monocytes % 9.7 %; Neutrophils # 3.3 K/mcL (1.6-8.9); Platelet Count 201 K/mcL (140-400); Red Cell Distribution Width 13.5 % (11.5-14.5); Segmented Neutrophils % 56.4 %
[2018-01-27 01:28] LABS: INR 1.1; Prothrombin Time 11.3 Seconds (9.4-12.1)
[2018-01-27 01:30] LABS: Alanine Aminotransferase 12 Units/L (7-52); Albumin 3.9 g/dL (3.5-5.7); Albumin/Globulin Ratio 1.1 (1.1-2.2); Alkaline Phosphatase 58 Units/L (34-104); Aspartate Amino Transferase 20 Units/L (13-39); BUN/Creatinine Ratio 16 (6-26); Bilirubin,Total 0.2 mg/dL (0.3-1.0); Blood Urea Nitrogen 9 mg/dL (8-23); Calcium 9.5 mg/dL (8.6-10.3); Carbon Dioxide 24 mEq/L (23-29); Chloride 106 mEq/L (98-107); Globulin 3.4 g/dL (2.4-3.5); Glucose 126 mg/dL (70-105); Magnesium 1.7 mg/dL (1.6-2.6); Osmolality,Calculated 296 (280-300); Potassium 3.7 mEq/L (3.5-5.1); Sodium 143 mEq/L (136-145); Total Protein 7.3 g/dL (6.4-8.9); eGFR For African Americans > 60 (> 60); eGFR For Non-African Americans > 60 (> 60)
[2018-01-27] MEDS ORDERED: *HR* Heparin 5,000 UNIT/ML VIAL IVP ONE (01:51)
[2018-01-27] MEDS ORDERED: *HR* Heparin 5,000 UNIT/ML VIAL IVP PRN ×2 (01:51)
[2018-01-27] MEDS ORDERED: Heparin 25,000 UNIT/500 ML D5W 25,000 UNIT/500 ML BAG IVC SCH (02:00)
[2018-01-27 02:42] LABS: Hematocrit 31.9 % (35.3-44.9); Hemoglobin 10.3 g/dL (11.5-15.4); Immature Platelets 2.6 % (1.1-6.1); Mean Corpuscular HGB Conc 32.3 g/dL (31.6-35.5); Mean Corpuscular Volume 83.7 fL (83.0-100.0); Mean Platelet Volume 10.2 fL (9.4-12.4); Red Blood Count 3.81 M/mcL (3.82-4.97); Red Cell Distribution Width 13.6 % (11.5-14.5)
[2018-01-27 02:46] LABS: INR 1.1; Prothrombin Time 11.4 Seconds (9.4-12.1)
[2018-01-27 02:49] LABS: Activated Partial Thrombo Time 28.6 Seconds (26.0-36.0)
[2018-01-27] MEDS: Aspirin 81 MG TAB.CHEW PO SCH (08:08)
[2018-01-27] MEDS: Isosorbide MONOnitrate (24 HR) 30 MG TAB.ER.24H PO SCH ×3 (08:09→22:17)
[2018-01-27 09:29] LABS: Activated Partial Thrombo Time 110.5 Seconds (26.0-36.0)
[2018-01-27 10:29] LABS: Heparin anti-factor XA UFH 0.75 IU/mL (0.30-0.70)
--- NOTE | 2018-01-27 13:00 | Electrophysiology Consult Note ---
<Brock Larose - Last Filed: 01/27/18 12:52> Date of Encounter: 01/27/18 Time of Encounter: 12:52 Assessment and Plan (1) Tachy-tristan syndrome Current Visit: Yes Status: Acute Known tachybrady syndrome. Scheduled for PPM. Telemetry shows current NSR, frequent runs PAF with HR up to 130 bpm. Pauses up to 2.7 seconds during nocturnal hours. Lowest HR 27 bpm at 4:30 am. TTE 11/2017- EF 60-65%. Unable to tolerate AV lino zacarias. PPM recommended by Dr. gambino. Patient agrees to proceed. Will discuss doing this admission with Dr. Gambino. (2) CAD (coronary artery disease) Current Visit: Yes Status: Chronic H/o CABG. Stress 2016 Negative for ischemia or infarct. Gated EF 70%. Continue asa and statin. Qualifiers: Coronary Disease-Associated Artery/Lesion type: unspecified vessel or lesion type [place] vs. transplanted heart: [place] heart Associated angina: without angina Qualified Code(s): I25.10 - Atherosclerotic heart disease of [place] coronary artery without angina pectoris (3) PAF (paroxysmal atrial fibrillation) Current Visit: Yes Status: Acute Runs of atrial fibrillation/ flutter seen during stay. HR up to 130 bpm. Recent holter showed frequent runs. She is symptomatic. Will start AV lino zacarias once PPM placed. She is not on AC due to recent GI bleed after starting xarelto. Continue asa. Discussion w patient/family: The assessment and plan as outlined above was discussed with the patient and/or family members who expressed understanding and agreement. All questions were answered. Thank you for involving us in the care of your patient. Please call with any questions. History of Present Illness Consult date: 01/27/18 Requesting physician: Malinda Diaz Consult reason: afib with RVR Chief complaint: palpitations, dizziness History of present illness: Ms. Arboleda is a 83 year old female with past medical history of CABG, PAF, atrial flutter, and tachybrady syndrome who presents with the c/o lightheadedness, and increased palpitations. Symptoms are more noticable when she is doing activity and improve with rest. She is concerned that she may fall. Denies chest pain or SOB. She was recently diagnosed with tachybrady syndrome and PPM placement was recommended. She is schedule 02/18/18 for PPM. She is unable to tolerate AV lino zacarias due to bradycardia and pauses. Recent holter monitor showed pauses up to 3.7 seconds long during the day. Prior cardiac testing: Event monitor 12/16/17: baseline NSR, multiple episodes of Afib with RVR (11%), several pauses, mainly nocturnal, longest 3.7 seconds during the day. TTE 05/19/17: LVEF 60-65%, asymmetric hypertrophy of the basal septum, mild LVDD, normal RV structure and function, normal wall motion Regadenoson nuclear stress 09/26/16: negative for ischemia or infarct, gated EF >70% Regadenoson nuclear stress 04/25/15: Negative for ischemia or infarct. Pharmacologic ECG non-diagnostic. Gated EF=75% TTE 04/25/15: LVEF 65%. Mild left ventricular diastolic dysfunction. No significant valvular dysfunction CUS 04/25/15: The bilateral carotid arteries have minimal plaque HM 09/2014: SR with a run of SVT (Sinus tachycardia and atrial tachycardia); otherwise benign holter monitor recording Past Med Surg Social Fam HX - Past Medical History Attestation: Yes The following information was validated with the patient. Medical history: atrial fibrillation, coronary artery disease, hyperlipidemia, hypertension, other Psychiatric history: anxiety - Past Surgical History Surgical History: , cholecystectomy, coronary bypass (CABG), hysterectomy - Social History Smoking Status: Never smoker Smokeless Tobacco Status: No Alcohol use: none Drug use: none - Family History Mother Living Status: Father Living Status: Hx Family Cardiac Disorders: Yes Medications and Allergies ALPRAZolam [Xanax 0.5 MG Tablet] 0.5 mg PO TID PRN 09/25/16 [History] Amitriptyline [Elavil] 10 mg PO HS 09/25/16 [History] Ascorbate Calcium [Vitamin C] 500 mg PO DAILY 09/25/16 [History] Calcium Carbonate [Calcium] 500 mg PO DAILY 09/25/16 [History] Cholecalciferol (D-3) [Vitamin D] 1,000 unit PO DAILY 09/25/16 [History] Estradiol [Estrace] 1 mg PO HS 09/25/16 [History] HYDROcodone/Acet 5/325 mg [[place] 5-325 mg] 1 tab PO Q6H PRN 09/25/16 [History] Losartan Potassium [Cozaar] 100 mg PO BID 09/25/16 [History] Potassium Chloride [K-Tab ER] 20 meq PO DAILY 09/25/16 [History] Simvastatin [Zocor] 20 mg PO QPM 09/25/16 [History] Triamterene/HCTZ 37.5/25mg [Dyazide] 1 tab PO DAILY 09/25/16 [History] amLODIPine [Norvasc] 5 mg PO BID 09/25/16 [History] Nitroglycerin 0.4 mg SL Q5MIN PRN #10 tab.subl 09/26/16 [Rx] Isosorbide MONOnitrate (24 HR) [Imdur] 30 mg PO TID #90 tab.er.24h 11/28/17 [Rx] Omeprazole [PriLOSEC] 20 mg PO DAILY #60 capsule. 12/08/17 [Rx] Aspirin [Lo-Dose Aspirin EC] 81 mg PO DAILY 01/27/18 [History] 3 Allergy/AdvReac Type Severity Reaction Status Date / Time azithromycin Allergy Rash Verified 01/27/18 08:51 ciprofloxacin [From Cipro] Allergy Rash Verified 01/27/18 08:51 codeine Allergy Rash Verified 01/27/18 08:51 nitrofurantoin Allergy Rash Verified 01/27/18 08:51 [From Macrodantin] Penicillins Allergy Rash Verified 01/27/18 08:51 Sulfa (Sulfonamide Allergy Rash Verified 01/27/18 08:51 Antibiotics) sulfamethoxazole Allergy Rash Verified 01/27/18 08:51 [From Bactrim] trimethoprim [From Bactrim] Allergy Rash Verified 01/27/18 08:51 diltiazem [From Cardizem] AdvReac Palpitation Verified 01/27/18 08:51 s pilocarpine AdvReac Palpitation Verified 01/27/18 08:51 s valsartan [From Diovan] AdvReac Palpitation Verified 01/27/18 08:51 s Verapamil AdvReac Palpitation Verified 01/27/18 08:51 s All Systems Review: The remainder of the systems were reviewed and are negative Physical Examination Vital Signs, Last 4 Hours Temp Pulse Resp BP Pulse Ox 01/27/18 10:39 98.1 F 74 17 122/79 97 General: Conversant, No Apparent Distress, Other (Frail elderly female) HEENT: Atraumatic, Normocephaly, Mucus Membranes Moist Neck: No JVD, Normal carotid pulses Cardiac: Reg Rate and Rhythm, Normal S1 and S2, No Murmur, Other (Currently NSR) Lungs: Normal Breath Sounds, No Wheeze, Rales, Rhonchi Neuro: Alert and responsive, No focal deficits noted Abdomen: Soft, Non-Tender Skin: No rashes noted on visualized skin Musculoskeletal: No Chest Wall Tenderness Extremities: No Clubbing, No Cyanosis, No Edema, Normal Pulses Results 01/27/18 02:32 01/27/18 00:30 Lab Results 01/27/18 01/27/18 01/27/18 00:30 00:30 00:30 WBC 5.8 Hgb 10.9 L Hct 34.1 L Plt Count 201 INR 1.1 APTT Sodium Potassium Chloride Carbon Dioxide BUN Creatinine Glucose Calcium Magnesium Total Bilirubin AST ALT Alkaline Phosphatase Troponin I 0.05 H* 01/27/18 01/27/18 01/27/18 00:30 02:32 02:32 WBC 6.0 Hgb 10.3 L Hct 31.9 L Plt Count 190 INR 1.1 APTT 28.6 Sodium 143 Potassium 3.7 Chloride 106 Carbon Dioxide 24 BUN 9 Creatinine 0.56 L Glucose 126 H Calcium 9.5 Magnesium 1.7 Total Bilirubin 0.2 L AST 20 ALT 12 Alkaline Phosphatase 58 Troponin I 01/27/18 01/27/18 06:01 08:52 WBC Hgb Hct Plt Count INR APTT 110.5 H* D Sodium Potassium Chloride Carbon Dioxide BUN Creatinine Glucose Calcium Magnesium Total Bilirubin AST ALT Alkaline Phosphatase Troponin I 0.04 H* - Imaging and Cardiology Echo: report reviewed - EKG Interpretation EKG results cardiology: personally reviewed (Sr with first degree AV block.) Consult Discharge Plan - Plan Referrals: Poli Esparza MD [Primary Care Provider] - <Scout Gambino - Last Filed: 01/27/18 16:16> Date of Encounter: 01/27/18 - Attending Attestation I have personally performed a face to face evaluation on this patient. I have reviewed and agree with the care plan. History and Exam by me shows: Known tachy-tristan syndrome. Was already scheduled for pacer. Will schedule for tomorrow. Assessment and Plan Discussion w patient/family: The assessment and plan as outlined above was discussed with the patient and/or family members who expressed understanding and agreement. All questions were answered. Thank you for involving us in the care of your patient. Please call with any questions. History of Present Illness History of present illness: Ms. Arboleda is a 83 year old female All Systems Review: The remainder of the systems were reviewed and are negative Results 01/27/18 02:32 01/27/18 00:30
--- NOTE | 2018-01-27 15:09 | Internal Med Progress Note ---
Date of Encounter: 01/27/18 Time of Encounter: 15:07 - Assessment and plan (1) Chest pain Current Visit: Yes Status: Acute Assessment and plan: Improved. No palpitations since admission. Troponin trended negative. Cardiology consulted; appreciate input. Considering PPM while inpatient. Continue aspirin and statin. Will follow all other recommendations. Qualifiers: Chest pain type: chest pain due to myocardial ischemia Ischemic chest pain type: stable angina pectoris Qualified Code(s): I20.8 - Other forms of angina pectoris (2) PAF (paroxysmal atrial fibrillation) Current Visit: Yes Status: Acute Assessment and plan: Some runs of Afib/flutter today with HR up to 130. Cardiology consulted; appreciate input. Consider AV lino zacarias after PPM. No anticoagulation due to recent GI bleed on xarelto. Continue aspirin. Will follow all other recommendations. (3) Tachy-tristan syndrome Current Visit: Yes Status: Acute Assessment and plan: Cardiology consulted; appreciate input. Considering PPM as inpatient. Will follow recommendations. (4) CAD (coronary artery disease) Current Visit: Yes Status: Chronic Assessment and plan: As per above. Qualifiers: Coronary Disease-Associated Artery/Lesion type: unspecified vessel or lesion type [place] vs. transplanted heart: [place] heart Associated angina: without angina Qualified Code(s): I25.10 - Atherosclerotic heart disease of [place] coronary artery without angina pectoris (5) Hyperlipidemia Current Visit: Yes Status: Chronic Assessment and plan: Continue statin as per above. Qualifiers: Hyperlipidemia type: unspecified Qualified Code(s): E78.5 - Hyperlipidemia , unspecified (6) Hypertension, essential Current Visit: No Status: Chronic Assessment and plan: Continue home medications. - Time Spent With Patient less than 15 minutes - Subjective Interval history: Patient had no acute events overnight. She reports no chest pain or palpitations today. She denies SOB. She wants to be made DNR; I discussed this with her with family present. She has no other complaints. - Constitutional Vitals: Temp Pulse Resp BP Pulse Ox 98.1 F 74 17 122/79 97 01/27/18 10:39 01/27/18 10:39 01/27/18 10:39 01/27/18 10:39 01/27/18 10:39 General appearance: Present: cooperative, A&O X 3, pleasant, no acute distress, answers questions appropriately - Respiratory Respiratory exam: Present: CTAB. Absent: accessory muscle use, rales, rhonchi, wheezes Additional comments: Normal WOB - Cardiovascular Cardiovascular exam: Present: RRR, +S1, +S2. Absent: diastolic murmur, gallop, rubs, systolic murmur Additional comments: No BLE edema - GI/Abdominal GI/Abdominal exam: Present: normal bowel sounds, soft. Absent: distended, hepatomegaly, mass, splenomegaly, tenderness - Psychiatric Psychiatric exam: Present: normal affect, normal mood. Absent: anxious, depressed - Skin Skin exam: Present: dry, intact, warm. Absent: cyanosis, rash Internal Medicine: Result - Labs CBC & Chem 7: 01/27/18 02:32 01/27/18 00:30 Labs: Short CBC 01/27/18 01/27/18 Range/Units 00:30 02:32 WBC 5.8 6.0 (4.3-11.1) K/mcL Hgb 10.9 L 10.3 L (11.5-15.4) g/dL Hct 34.1 L 31.9 L (35.3-44.9) % Plt Count 201 190 (140-400) K/mcL Neutrophils # 3.3 (1.6-8.9) K/mcL BMP 01/27/18 00:30 Sodium 143 Potassium 3.7 Chloride 106 Carbon Dioxide 24 BUN 9 Creatinine 0.56 L Glucose 126 H Calcium 9.5 Cardiac Enzymes 01/27/18 01/27/18 01/27/18 Range/Units 00:30 06:01 12:00 Troponin I 0.05 H* 0.04 H* 0.03 (< 0.04) ng/mL Liver Function 01/27/18 Range/Units 00:30 Total Bilirubin 0.2 L (0.3-1.0) mg/dL AST 20 (13-39) Units/L ALT 12 (7-52) Units/L Alkaline Phosphatase 58 (34-104) Units/L Albumin 3.9 (3.5-5.7) g/dL - ABG Interpretation ABG results: PT/INR, D-dimer PT 11.4 Seconds (9.4-12.1) 01/27/18 02:32 - VTE Reasons for not Prescribing Prophylaxis: Medical contraindication (Recent GI bleed on xarelto.) Documentation of Mechanical Device: Intermittent pneumatic compression device Consult Discharge Plan - Plan Referrals: Poli Esparza MD [Primary Care Provider] -
[2018-01-27] MEDS ORDERED: Clindamycin 900 MG/50 ML 900 MG/50 ML IV.SOLN IVPB ONE (15:48)
[2018-01-27] MEDS: Ascorbic Acid 500 MG TABLET PO SCH (16:27)
[2018-01-27] MEDS: *HR* HYDROcodone/Acet 5/325 mg TABLET PO PRN (22:17)
[2018-01-28 04:55] LABS: Basophils % 0.7 %; Eosinophils # 0.1 K/mcL (0.0-0.6); Eosinophils % 2.3 %; Hematocrit 28.2 % (35.3-44.9); Hemoglobin 9.2 g/dL (11.5-15.4); Immature Granulocytes % 0.2 % (0-4); Lymphocytes # 2.3 K/mcL (0.6-4.6); Lymphocytes % 52.9 %; Mean Corpuscular HGB Conc 32.6 g/dL (31.6-35.5); Mean Corpuscular Hemoglobin 27.2 pg (28.0-33.3); Mean Corpuscular Volume 83.4 fL (83.0-100.0); Mean Platelet Volume 10.4 fL (9.4-12.4); Monocytes # 0.5 K/mcL (0.0-1.3); Monocytes % 11.5 %; Neutrophils # 1.4 K/mcL (1.6-8.9); Platelet Count 175 K/mcL (140-400); Red Blood Count 3.38 M/mcL (3.82-4.97); Red Cell Distribution Width 13.9 % (11.5-14.5); Segmented Neutrophils % 32.4 %
[2018-01-28 05:15] LABS: BUN/Creatinine Ratio 23 (6-26); Blood Urea Nitrogen 15 mg/dL (8-23); Calcium 8.7 mg/dL (8.6-10.3); Carbon Dioxide 24 mEq/L (23-29); Chloride 108 mEq/L (98-107); Glucose 91 mg/dL (70-105); Osmolality,Calculated 292 (280-300); Potassium 3.5 mEq/L (3.5-5.1); Sodium 141 mEq/L (136-145); eGFR For African Americans > 60 (> 60); eGFR For Non-African Americans > 60 (> 60)
--- NOTE | 2018-01-28 07:32 | Internal Med Progress Note ---
<Etienne Samuels [facility] - Last Filed: 01/28/18 12:39> Date of Encounter: 01/28/18 - Constitutional Vitals: Temp Pulse Resp BP Pulse Ox 97.6 F 74 15 132/66 97 01/28/18 09:45 01/28/18 09:45 01/28/18 09:45 01/28/18 09:45 01/28/18 10:19 Internal Medicine: Result - Labs CBC & Chem 7: 01/28/18 04:06 01/28/18 04:06 Labs: Short CBC 01/28/18 Range/Units 04:06 WBC 4.3 (4.3-11.1) K/mcL Hgb 9.2 L (11.5-15.4) g/dL Hct 28.2 L (35.3-44.9) % Plt Count 175 (140-400) K/mcL Neutrophils # 1.4 L (1.6-8.9) K/mcL BMP 01/28/18 04:06 Sodium 141 Potassium 3.5 Chloride 108 H Carbon Dioxide 24 BUN 15 Creatinine 0.66 Glucose 91 Calcium 8.7 - ABG Interpretation ABG results: PT/INR, D-dimer PT 11.4 Seconds (9.4-12.1) 01/27/18 02:32 Consult Discharge Plan - Plan Referrals: Poli Esparza MD [Primary Care Provider] - - Attending Attestation I performed an independent interview and exam of this patient. I reviewed the findings, assessment, plan of Dr. Callahan, internal medicine geotechnical intern. Patient has a pacemaker plan today. She is currently without complaints. She will also be a rate control agent once pacemakers placed to avoid paroxysms of rapid response to her atrial fibrillation/flutter. Patient otherwise appears to be doing fairly well. She is not an anticoagulation due to recent GI bleed. She does continue on aspirin 81 mg by mouth daily. We will await pacemaker placement and then reassess. All else as outlined above. <Cristi Callahan - Last Filed: 01/28/18 16:13> Date of Encounter: 01/28/18 Time of Encounter: 07:30 - Assessment and plan (1) Tachy-tristan syndrome Current Visit: Yes Status: Acute Assessment and plan: Telemetry demonstrated several runs of PAF with heart rate going into the 130s. -Pauses up to 2.7 seconds during nocturnal hours; at one point, patient had a heart rate of 27 bpm. -TTE 11/2017- EF 60-65% -Electrophysiology/cardiology have been consulted -Patient is unable to tolerate AV lino zacarias. -Permanent pacemaker recommended by Dr. Gambino. -Patient agrees to proceed -Currently nothing by mouth (2) PAF (paroxysmal atrial fibrillation) Current Visit: Yes Status: Acute Assessment and plan: -Some runs of Afib/flutter with HR up to 130 -Currently rate controlled -Cardiology consulted; appreciate input -Consider AV lino zacarias after PPM -No anticoagulation due to recent GI bleed on xarelto -ASA 81 mg PO daily (3) CAD (coronary artery disease) Current Visit: Yes Status: Chronic Assessment and plan: -Stress 2016 Negative for ischemia or infarct. Gated EF 70% -ASA 81 mg PO daily -Lipitor 40 gm PO HS -Imdur 30 mg PO TID Qualifiers: Coronary Disease-Associated Artery/Lesion type: unspecified vessel or lesion type [place] vs. transplanted heart: [place] heart Associated angina: without angina Qualified Code(s): I25.10 - Atherosclerotic heart disease of [place] coronary artery without angina pectoris (4) Hypertension, essential Current Visit: No Status: Chronic Assessment and plan: -Known history of hypertension -Currently well controlled -Cozaar 100 mg PO BID (5) Hyperlipidemia Current Visit: Yes Status: Chronic Assessment and plan: -Lipitor 40 gm PO HS Qualifiers: Hyperlipidemia type: unspecified Qualified Code(s): E78.5 - Hyperlipidemia , unspecified - Subjective Interval history: 83-year-old female. Past medical history of paroxysmal atrial fibrillation, CAD , hypertension, status post CABG. Presented to [facility] for evaluation of chest pain and palpitations. Developed chest pain on the evening of presentation located on the left side of her chest. Pain was ranked 7 out of 10 and described as pressure-like. Endorsed this dizziness and shortness of breath. Patient checked her blood pressure, and it was elevated. Was given aspirin by EMS; chest pain improved to 2 out of 10. Patient has been seeing a door cutter ; was scheduled to get a pacemaker in February. EKG demonstrated atrial fibrillation. ACS workup was initiated. Troponins were negative. Cardiology/electrophysiology were consulted. Patient is scheduled to have a dual chamber pacemaker placed. Currently nothing by mouth. Patient was seen and examined at bedside this morning. Patient reports that she is feeling well right now. Denies chest pain, diaphoresis, dizziness, lightheadedness, shortness of breath, palpitations, nausea, vomiting, fever, or chills. Currently asymptomatic. No complaints at this time. - Constitutional Vitals: Temp Pulse Resp BP Pulse Ox 97.7 F 67 15 123/60 96 01/28/18 06:24 01/28/18 06:24 01/28/18 06:24 01/28/18 06:24 01/28/18 06:24 General appearance: Present: cooperative, A&O X 3, pleasant, no acute distress, answers questions appropriately - Head Head exam: Present: atraumatic, normocephalic - Eye Eye exam: Present: PERRL, conjuntiva pink, sclera anicteric Pupils: Present: PERRL - Neck Neck exam general surgery: Present: supple, trachea midline. Absent: lymphadenopathy - Respiratory Respiratory exam: Present: CTAB. Absent: accessory muscle use, rales, rhonchi, wheezes - Cardiovascular Cardiovascular exam: Present: RRR, +S1, +S2. Absent: diastolic murmur, gallop, rubs, systolic murmur - Extremities Exam Extremities exam: Present: warm, radial pulses palpable and symmetrical. Absent : calf tenderness, cyanotic, pedal edema - Neurological Exam Neurological exam: Present: CN II-XII intact, oriented X3, no focal deficits. Absent: pronater drift, facial droop, speech deficit - Skin Skin exam: Present: dry, intact Internal Medicine: Result - Labs CBC & Chem 7: 01/28/18 04:06 01/28/18 04:06 Labs: Short CBC 01/28/18 Range/Units 04:06 WBC 4.3 (4.3-11.1) K/mcL Hgb 9.2 L (11.5-15.4) g/dL Hct 28.2 L (35.3-44.9) % Plt Count 175 (140-400) K/mcL Neutrophils # 1.4 L (1.6-8.9) K/mcL BMP 01/28/18 04:06 Sodium 141 Potassium 3.5 Chloride 108 H Carbon Dioxide 24 BUN 15 Creatinine 0.66 Glucose 91 Calcium 8.7 - ABG Interpretation ABG results: PT/INR, D-dimer PT 11.4 Seconds (9.4-12.1) 01/27/18 02:32 - VTE Reasons for not Prescribing Prophylaxis: Medical contraindication (Recent GI bleed on xarelto.) Documentation of Mechanical Device: Intermittent pneumatic compression device
--- NOTE | 2018-01-28 08:09 | Electrocardiograph Report ---
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
[2018-01-28] MEDS: Isosorbide MONOnitrate (24 HR) 30 MG TAB.ER.24H PO SCH ×3 (09:58→21:14)
[2018-01-28] MEDS: Cholecalciferol (D-3) 1,000 UNIT TABLET PO SCH (09:58)
[2018-01-28] MEDS: Ascorbic Acid 500 MG TABLET PO SCH (09:58)
[2018-01-28] MEDS: Aspirin 81 MG TAB.CHEW PO SCH (09:59)
[2018-01-28] MEDS: ALPRAZolam 0.5 MG TABLET PO PRN ×2 (16:35→21:14)
--- NOTE | 2018-01-28 16:38 | Pre-Sedation Evaluation ---
Pre-sedation evaluation - Pre-sedation checklist Procedure: Removal of polyps Recent Vitals: Last Vital Signs Temp 98.3 F 01/28/18 14:31 Pulse 83 01/28/18 14:31 Resp 15 01/28/18 14:31 BP 146/7 01/28/18 14:31 Pulse Ox 99 01/28/18 14:31 H&P (including ROS) documented in medical record: Yes Previous reaction to sedatives/anesthetics: No Dietary Status: NPO after Midnight Airway Assessment: Patient can open mouth completely, TMJ function normal, Micrognathia (under-bite, receding chin) absent Dentition: No loose teeth or bridges Possible difficult airway: No ASA Classification *see protocol: CLASS II-Mild systemic disease Plan of Care: Pt appropriate candidate for procedure/moderate/conscious sedation , Risks/benefits of procedure/sedation discussed w/ patient/family
[2018-01-28] MEDS ORDERED: *HR* Midazolam HCl 2 MG/2 ML VIAL ONE (16:58)
[2018-01-28] MEDS ORDERED: *HR* FentaNYL (PF) 100 MCG/2 ML VIAL ONE (16:58)
[2018-01-28] MEDS ORDERED: Clindamycin 600 MG/50 ML 1,200 MG/100 ML IV.SOLN IVPB ONE (16:59)
[2018-01-28] MEDS ORDERED: 0.9 % Sodium Chloride 1,000 ML ONE (16:59)
[2018-01-28] MEDS ORDERED: 0.9 % Sodium Chloride 500 ML ONE (16:59)
[2018-01-29] MEDS: *HR* HYDROcodone/Acet 5/325 mg TABLET PO PRN (00:50)
[2018-01-29] MEDS: Ascorbic Acid 500 MG TABLET PO SCH (07:45)
[2018-01-29] MEDS: Isosorbide MONOnitrate (24 HR) 30 MG TAB.ER.24H PO SCH ×2 (07:45→14:29)
[2018-01-29] MEDS: Cholecalciferol (D-3) 1,000 UNIT TABLET PO SCH (07:45)
[2018-01-29] MEDS: Aspirin 81 MG TAB.CHEW PO SCH (07:45)
--- NOTE | 2018-01-29 08:10 | Internal Med Progress Note ---
Date of Encounter: 01/29/18 Time of Encounter: 08:09 - Assessment and plan (1) Tachy-tristan syndrome Current Visit: Yes Status: Acute Assessment and plan: Telemetry demonstrated several runs of PAF with heart rate going into the 130s. -Pauses up to 2.7 seconds during nocturnal hours; at one point, patient had a heart rate of 27 bpm. -TTE 11/2017- EF 60-65% -Patient is unable to tolerate AV lino zacarias. -Permanent pacemaker placement yesterday (2) PAF (paroxysmal atrial fibrillation) Current Visit: Yes Status: Acute Assessment and plan: -Some runs of Afib/flutter with HR up to 130 -Currently rate controlled -No anticoagulation due to recent GI bleed on xarelto -ASA 81 mg PO daily (3) CAD (coronary artery disease) Current Visit: Yes Status: Chronic Assessment and plan: -Stress 2016 Negative for ischemia or infarct. Gated EF 70% -ASA 81 mg PO daily -Lipitor 40 gm PO HS -Imdur 30 mg PO TID Qualifiers: Coronary Disease-Associated Artery/Lesion type: unspecified vessel or lesion type [place] vs. transplanted heart: [place] heart Associated angina: without angina Qualified Code(s): I25.10 - Atherosclerotic heart disease of [place] coronary artery without angina pectoris (4) Hypertension, essential Current Visit: No Status: Chronic Assessment and plan: -Known history of hypertension -Currently well controlled -Cozaar 100 mg PO BID (5) Hyperlipidemia Current Visit: Yes Status: Chronic Assessment and plan: -Lipitor 40 gm PO HS Qualifiers: Hyperlipidemia type: unspecified Qualified Code(s): E78.5 - Hyperlipidemia , unspecified - Subjective Interval history: Patient was seen and examined at bedside this morning. Patient reports that she is feeling well right now. Denies chest pain, diaphoresis, dizziness, lightheadedness, shortness of breath, palpitations, nausea, vomiting, fever, or chills. Currently asymptomatic. No complaints at this time. - Constitutional Vitals: Temp Pulse Resp BP Pulse Ox 97.4 F L 70 16 113/61 95 01/29/18 06:30 01/29/18 06:30 01/29/18 06:30 01/29/18 06:30 01/29/18 06:30 General appearance: Present: cooperative, A&O X 3, pleasant, no acute distress, answers questions appropriately - Head Head exam: Present: atraumatic, normocephalic - Eye Eye exam: Present: PERRL, conjuntiva pink, sclera anicteric Pupils: Present: PERRL - Neck Neck exam general surgery: Present: supple, trachea midline. Absent: lymphadenopathy - Respiratory Respiratory exam: Present: CTAB. Absent: accessory muscle use, rales, rhonchi, wheezes - Cardiovascular Cardiovascular exam: Present: RRR, +S1, +S2. Absent: diastolic murmur, gallop, rubs, systolic murmur - GI/Abdominal GI/Abdominal exam: Present: normal bowel sounds, soft, no peritoneal signs. Absent: distended, tenderness - Extremities Exam Extremities exam: Present: warm, radial pulses palpable and symmetrical. Absent : calf tenderness, cyanotic, pedal edema - Neurological Exam Neurological exam: Present: CN II-XII intact, oriented X3, no focal deficits. Absent: pronater drift, facial droop, speech deficit - Skin Skin exam: Present: dry, intact Internal Medicine: Result - Labs CBC & Chem 7: 01/28/18 04:06 01/28/18 04:06 - ABG Interpretation ABG results: PT/INR, D-dimer PT 11.4 Seconds (9.4-12.1) 01/27/18 02:32 - VTE Reasons for not Prescribing Prophylaxis: Medical contraindication (Recent GI bleed on xarelto.) Documentation of Mechanical Device: Intermittent pneumatic compression device Consult Discharge Plan - Plan Referrals: Poli Esparza MD [Primary Care Provider] -
[2018-01-29 10:22] VITALS: BP 129/82
--- NOTE | 2018-01-29 12:08 | Cardiology Progress Note ---
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 Telemetry shows current NSR, occasional atrial and ventricular pacing. TTE 11/2017- EF 60-65%. Post procedure chest x-ray was negative for pneumothorax. Post procedure device check was normal. She is recommended to follow in the device clinic in one week for a wound check and one month for a device check. 2 week cardiology f/u for afib. Activity restrictions and wound care reviewed. No driving for two week. No lifting over 5 lbs with left arm for a month. Dressing can be removed in 24 hours. Steri strips will fall off in 10 -15 days. Instructed to wash with soap and water daily after dressing removed. Report redness, swelling, fever, or drainage. Call with questions. Cardiology will sign off. (2) CAD (coronary artery disease) Current Visit: Yes Status: Chronic H/o CABG. Stress 2016 Negative for ischemia or infarct. Gated EF 70%. Continue asa and statin. Qualifiers: Coronary Disease-Associated Artery/Lesion type: unspecified vessel or lesion type [place] vs. transplanted heart: [place] heart Associated angina: without angina Qualified Code(s): I25.10 - Atherosclerotic heart disease of [place] coronary artery without angina pectoris (3) PAF (paroxysmal atrial fibrillation) Current Visit: Yes Status: Acute Runs of atrial fibrillation/ flutter seen during stay. HR up to 130 bpm. Recent holter showed frequent runs. She is symptomatic. Will start AV lino zacarias once PPM placed. She is not on AC due to recent GI bleed after starting xarelto. Continue asa. Discussion w patient/family: The assessment and plan as outlined above was discussed with the patient and/or family members who expressed understanding and agreement. All questions were answered. Thank you for involving us in the care of your patient. Please call with any questions. Subjective Principal diagnosis: tachy-tristan syndrome Interval history: S/p PPM. No complication. Patient stated that she did not sleep well due to feeling anxious. Objective Vital Signs, Last 4 Hours Temp Pulse Resp BP Pulse Ox 01/29/18 10:14 97.8 F 70 16 129/82 100 General: Conversant, No Apparent Distress HEENT: Atraumatic, Normocephaly, Mucus Membranes Moist Neck: No JVD, Normal carotid pulses Cardiac: Reg Rate and Rhythm, Normal S1 and S2, No Murmur, Other (ILIR dressing D /I. ) Lungs: Normal Breath Sounds, No Wheeze, Rales, Rhonchi Neuro: Alert and responsive, No focal deficits noted Abdomen: Soft, Non-Tender Skin: No rashes noted on visualized skin Musculoskeletal: No Chest Wall Tenderness Extremities: No Clubbing, No Cyanosis, No Edema, Normal Pulses Results 01/28/18 04:06 01/28/18 04:06 - Imaging and Cardiology Chest Xray: report reviewed - EKG Interpretation EKG results cardiology: personally reviewed - VTE Reasons for not Prescribing Prophylaxis: Medical contraindication (Recent GI bleed on xarelto.) Documentation of Mechanical Device: Intermittent pneumatic compression device Consult Discharge Plan - Plan Referrals: Poli Esparza MD [Primary Care Provider] -
--- NOTE | 2018-01-29 13:32 | Discharge Summary ---
<Cristi Callahan - Last Filed: 01/29/18 13:37> Orders not resulted at time of discharge: Pending orders 01/27/18 15:48 CL Insert Permanent Pacemaker [CL] Routine Date of Encounter: 01/29/18 Time of Encounter: 13:26 - Discharge Diagnosis (1) Tachy-tristan syndrome Priority: Primary Status: Acute (2) PAF (paroxysmal atrial fibrillation) Priority: Secondary Status: Acute (3) CAD (coronary artery disease) Priority: Secondary Status: Chronic Qualifiers: Coronary Disease-Associated Artery/Lesion type: unspecified vessel or lesion type [place] vs. transplanted heart: [place] heart Associated angina: without angina Qualified Code(s): I25.10 - Atherosclerotic heart disease of [place] coronary artery without angina pectoris (4) Hypertension, essential Priority: Secondary Status: Chronic (5) Hyperlipidemia Priority: Secondary Status: Chronic Qualifiers: Hyperlipidemia type: unspecified Qualified Code(s): E78.5 - Hyperlipidemia , unspecified Hospital course: Ms. Arboleda is a 83 year old female with a past medical history of paroxysmal atrial fibrillation, coronary artery disease, hypertension, status post CABG. She presented to the emergency department for the evaluation of chest pain and palpitations. Patient had developed chest pain on the evening of presentation that was localized to the left side of her chest. Pain was ranked 7 out of 10, and was described as pressure-like. She endorsed a sensation of dizziness and shortness of breath. Patient checked her blood pressure, and found that it was elevated. She was given aspirin by EMS. Chest pain subsequently improved to a 2 out of 10. Patient has been seeing a benchroom shop optician regularly. Was scheduled to get a pacemaker in February. Upon arrival, EKG was obtained, which demonstrated atrial fibrillation. ACS workup was initiated. Troponin levels were negative. Cardiology and electrophysiology were consulted. Further recommendations, patient had a dual-chamber pacemaker placed. Pacemaker was placed on 01/28/18. There were no consultations from her procedure. During her stay in the hospital, patient did develop several episodes of tachycardia and bradycardia before her pacemaker insertion. Continuous telemetry demonstrated several rounds of PAF with her heart rate going into the 130s. At one point, her heart rate dropped to 27 bpm. Patient was asymptomatic during her hospital stay. Patient's postprocedure chest x-ray was negative for pneumothorax. Postprocedure device check was normal. Per cardiology, patient is recommended to follow-up in the device clinic in 1 week for a wound check, and one month for a device check. She will also have a two-week cardiology follow-up for atrial fibrillation. Her activity restrictions include no driving for 2 weeks, no lifting over 5 pounds with left arm for a month. Patient's dressing can be removed in 24 hours. Patient instructed that her Steri-Strips will fall off in 10-15 days. She has been instructed to wash with soap and water daily after her dressing is removed. She is to report any signs of redness, swelling, fever , or drainage. Patient was seen and examined on date of discharge. She states that she feels well. Denies having any chest pain, palpitations, shortness of breath, fever, chills, syncope, or diaphoresis. She is no complaints at this time. - Time Spent with Patient Total time spent providing and/or coordinating discharge services: Greater than 30 minutes (41 minutes) - Discharge Medications Prescriptions: Isosorbide MONOnitrate (24 HR) [Imdur] 30 mg PO TID #90 tab.er.24h Losartan Potassium [Cozaar] 100 mg PO DAILY #30 tablet Metoprolol [Lopressor] 25 mg PO BID #60 tablet Home Medications: ALPRAZolam [Xanax 0.5 MG Tablet] 0.5 mg PO TID PRN 09/25/16 [History] Amitriptyline [Elavil] 10 mg PO HS 09/25/16 [History] Ascorbate Calcium [Vitamin C] 500 mg PO DAILY 09/25/16 [History] Calcium Carbonate [Calcium] 500 mg PO DAILY 09/25/16 [History] Cholecalciferol (D-3) [Vitamin D] 1,000 unit PO DAILY 09/25/16 [History] Estradiol [Estrace] 1 mg PO HS 09/25/16 [History] HYDROcodone/Acet 5/325 mg [[place] 5-325 mg] 1 tab PO Q6H PRN 09/25/16 [History] Potassium Chloride [K-Tab ER] 20 meq PO DAILY 09/25/16 [History] Simvastatin [Zocor] 20 mg PO QPM 09/25/16 [History] Triamterene/HCTZ 37.5/25mg [Dyazide] 1 tab PO DAILY 11/15/16 [History] amLODIPine [Norvasc] 5 mg PO BID 09/25/16 [History] Nitroglycerin 0.4 mg SL Q5MIN PRN #10 tab.subl 09/26/16 [Rx] Omeprazole [PriLOSEC] 20 mg PO DAILY #60 capsule.dr 12/08/17 [Rx] Aspirin [Lo-Dose Aspirin EC] 81 mg PO DAILY 01/27/18 [History] Isosorbide MONOnitrate (24 HR) [Imdur] 30 mg PO TID #90 tab.er.24h 01/29/18 [Rx] Losartan Potassium [Cozaar] 100 mg PO DAILY #30 tablet 01/29/18 [Rx] Metoprolol [Lopressor] 25 mg PO BID #60 tablet 01/29/18 [Rx] Allergies/Adverse Reactions: 3 Allergy/AdvReac Type Severity Reaction Status Date / Time azithromycin Allergy Rash Verified 01/27/18 08:51 ciprofloxacin [From Cipro] Allergy Rash Verified 01/27/18 08:51 codeine Allergy Rash Verified 01/27/18 08:51 nitrofurantoin Allergy Rash Verified 01/27/18 08:51 [From Macrodantin] Penicillins Allergy Rash Verified 01/27/18 08:51 Sulfa (Sulfonamide Allergy Rash Verified 01/27/18 08:51 Antibiotics) sulfamethoxazole Allergy Rash Verified 01/27/18 08:51 [From Bactrim] trimethoprim [From Bactrim] Allergy Rash Verified 01/27/18 08:51 diltiazem [From Cardizem] AdvReac Palpitation Verified 01/27/18 08:51 s pilocarpine AdvReac Palpitation Verified 01/27/18 08:51 s valsartan [From Diovan] AdvReac Palpitation Verified 01/27/18 08:51 s Verapamil AdvReac Palpitation Verified 01/27/18 08:51 s Date of admission: 01/27/18 15:10 Primary care physician: Poli Esparza MD Discharging clinician: Cristi Callahan Anticipated date of discharge: 01/29/18 - Constitutional Vitals: Temp Pulse Resp BP Pulse Ox 97.8 F 70 16 129/82 100 01/29/18 10:14 01/29/18 10:14 01/29/18 10:14 01/29/18 10:14 01/29/18 10:14 General appearance: Present: cooperative, A&O X 3, pleasant, no acute distress, answers questions appropriately - Head Head exam: Present: atraumatic, normocephalic - Eye Eye exam: Present: PERRL, conjuntiva pink, sclera anicteric Pupils: Present: PERRL - Neck Neck exam general surgery: Present: supple, trachea midline. Absent: lymphadenopathy - Respiratory Respiratory exam: Present: CTAB. Absent: accessory muscle use, rales, rhonchi, wheezes - Cardiovascular Cardiovascular exam: Present: RRR, +S1, +S2. Absent: diastolic murmur, gallop, rubs, systolic murmur - Extremities Exam Extremities exam: Present: warm, radial pulses palpable and symmetrical. Absent : calf tenderness, cyanotic, pedal edema - Neurological Exam Neurological exam: Present: CN II-XII intact, oriented X3, no focal deficits. Absent: pronater drift, facial droop, speech deficit - Skin Skin exam: Present: dry, intact - Patient Status Disposition: Home, Self-Care Condition: Good Overall status at discharge: patient is progressing back to baseline - Discharge Instructions Instructions: Isosorbide Dinitrate (By mouth), Metoprolol (By mouth), Losartan (By mouth), Atrial Fibrillation (DC), Pacemaker (DC) Follow Up With: Poli Esparza MD [Primary Care Provider] - (Dr. Esparza's office would like you to call when you get home and make an appt for 5-7 days after d/c.) Jessica Handley CNP [Partnered Physician] - (Cardiology office will call you with appt date & time for: Wound check in 1 week Device check in 1 month Cardiology followup in 2 weeks) Additional Instructions: ACTIVITY: Moderate activity for the next 7 days. No lifting more than 5 pounds ( gallon of milk) for 4-6 weeks. Avoid lifting your arm on the same side as the device for 4 weeks. BATHING /SHOWERING: Do not remove the large bandage over the site for 2 days. Do not allow the device to get wet for 7-10 days. You may bathe/shower, but do not use soap and water on the site. When bathing, keep the site dry by covering with Saran wrap or a towel. WOUND CARE: The white steri-strips will start to peel away and come off after 14 days, or your doctor will remove them after [address] into or on top of the incision. Do not use cotton swabs. Do not use any antibiotic ointment or Vitamin E on the site. REMINDERS: You may use electrical devices, such as, microwaves, hair dryers, electric razors, electric blankets, etc. as long as they are in good condition and kept 6 -8 inches away from the device. It is recommended to use cell phones on the opposite side of your device. Notify security personnel at the airport that you have a device before you go through airport security screening. When at places with security monitors, such as a grocery store, do not linger near these monitors. It is fine to walk past them in a normal manner. Refer to your owners manual for more specific directions. CARRY YOUR PACEMAKER/ICD CARD WITH YOU AT ALL TIMES Return to work as instructed per physician Resume driving as instructed per physician Keep all scheduled follow up appointments Resume medications as instructed Contact [facility] ( ) if: You develop excessive bleeding from insertion or wound site not controlled by applying pressure You develop a fever greater than 101 degrees Fahrenheit Your incision becomes reddened at or around the site Your incision develops yellowish or greenish drainage or development of white pimple-like bumps You experience excessive pain You develop swelling in your ankles You experience muscle switching You develop excessive hiccupping If you experience chest pain, shortness of breath, dizziness, or extreme tiredness, stop the activity and rest. Please notify [facility] office if you experience any of these symptoms and they are not relieved by rest please call 911! - Diet and Activity Activity: other (No driving for 2 weeks. No lifting over 5 pounds with left arm for a month. Dressing can be removed in 24 hours. Report redness, swelling , fever, or drainage.) Diet: advance to your usual diet - VTE Reasons for not Prescribing Prophylaxis: Medical contraindication (Recent GI bleed on xarelto.) Documentation of Mechanical Device: Intermittent pneumatic compression device <Etienne Samuels - Last Filed: 01/29/18 15:35> Orders not resulted at time of discharge: Pending orders 01/27/18 15:48 CL Insert Permanent Pacemaker [CL] Routine Date of Encounter: 01/29/18 Hospital course: Ms. Arboleda is a 83 year old female - Time Spent with Patient Total time spent providing and/or coordinating discharge services: Date of admission: 01/27/18 15:10 Primary care physician: Poli Esparza MD - Constitutional Vitals: Temp Pulse Resp BP Pulse Ox 97.8 F 70 16 129/82 100 01/29/18 10:14 01/29/18 10:14 01/29/18 10:14 01/29/18 10:14 01/29/18 10:14 - Attending Attestation I performed independ exam and interview of this pt. I agree with the findings, assessment and plan of Dr. Callahan, internal medicine hospital intern. Cardiology input noted. Stable for discharge.
--- NOTE | 2018-01-29 19:17 | Electrocardiograph Report ---
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
== END 2018-01-29 17:10 | disposition home or self-care (01) | DRG 243 ==
LOC: EMEROO 20:22 → 2NENU 20:22
PROVIDERS: ADMIT Internal Medicine; ATTEND Family Medicine